=== PATIENT | female | born 1940 | race Caucasian/White ===

== ENCOUNTER 2017-06-03 16:05 | Inpatient (IN) ==
[2017-06-03 17:01] LABS: Basophils % 0.1 %; Eosinophils # 0.1 K/mcL (0.0-0.6); Eosinophils % 0.2 %; Hematocrit 34.8 % (35.3-44.9); Hemoglobin 11.5 g/dL (11.5-15.4); Immature Granulocytes % 1.3 % (0-4); Lymphocytes # 0.6 K/mcL (0.6-4.6); Lymphocytes % 2.2 %; Mean Corpuscular Hemoglobin 27.6 pg (28.0-33.3); Mean Corpuscular Volume 83.7 fL (83.0-100.0); Monocytes # 1.6 K/mcL (0.0-1.3); Monocytes % 6.5 %; Platelet Count 254 K/mcL (140-400); Red Blood Count 4.16 M/mcL (3.82-4.97); Red Cell Distribution Width 13.2 % (11.5-14.5); Segmented Neutrophils % 89.7 %
[2017-06-03 17:04] LABS: Neutrophils # 22.3 K/mcL (1.6-8.9)
[2017-06-03 17:14] LABS: Calcium 8.8 mg/dL (8.6-10.8); Potassium 4.8 mEq/L (3.5-4.5)
[2017-06-03] MEDS ORDERED: Cefepime HCl 2,000 MG in D5% in Water (Mini-Bag+) 100 ML IVPB STA (17:23)
[2017-06-03] MEDS ORDERED: Azithromycin 500 MG in D5% in Water 250 ML IVPB ONE (17:23)
[2017-06-03] MEDS ORDERED: Vancomycin 1,000 MG in D5% in Water 250 ML IVPB ONE (17:25)
[2017-06-03 17:30] LABS: Anisocytosis 1+ (Not Present); Platelet Estimate Normal (Normal)
--- NOTE | 2017-06-03 18:31 | Emergency Department Note ---
Disposition Clinical Impression: Pleural effusion, Hypoxia Pneumonia Qualifiers: Pneumonia type: due to unspecified organism Laterality: unspecified laterality Lung location: unspecified part of lung Qualified Code(s): J18.9 - Pneumonia, unspecified organism Sepsis Qualifiers: Sepsis type: sepsis due to unspecified organism Qualified Code(s): A41.9 - Sepsis, unspecified organism Disposition: Admitted As Inpatient Condition: Good Time of Disposition: 18:33 General Adult HPI - General Chief complaint: ED Fever Stated complaint: LANNY,Fever Time Seen by Provider: 06/03/17 16:23 Source: patient, family Mode of arrival: ambulatory Limitations: no limitations Nursing Notes Reviewed: Yes Vital Signs Reviewed: Yes - History of Present Illness HPI Narrative: 76-year-old female presents with concerns of difficulty in breathing. Patient states she was seen by her oncologist, Dr. Nation prior to arrival emergency department. Patient was satting 84% on room air prior to arrival in the emergency department. She does not use oxygen at home. Patient states she had a history of similar hypoxia with her right-sided pleural effusion which improved after drainage. Patient received her first dose of chemotherapy within the past week and has had multiple episodes of nonbloody, nonbilious emesis. Patient denies chest pain. She denies abdominal pain or diarrhea. Patient denies rash. No history of neutropenia. Patient states she has felt lightheaded with exertion. She has not syncopized. No other recent trauma. Pain Scale: 0 - Related Data Home Medications Medication Instructions Recorded Confirmed Aspirin [Lo-Dose Aspirin EC] 81 mg PO DAILY 08/05/16 06/03/17 Calcium Carbonate/Vitamin D3 1 tab PO BID 08/05/16 06/03/17 [Calcium 600 + Vit D Tablet] Fish Oil/Dha/Epa [Fish Oil 1,200 1 cap PO DAILY 08/05/16 06/03/17 mg Fish Oil] Multivitamin [Multivitamins] 1 cap PO DAILY 08/05/16 06/03/17 Ramipril [Altace] 10 mg PO BID 08/05/16 06/03/17 Risedronate Sodium [Actonel] 35 mg PO MO 08/05/16 06/03/17 amLODIPine [Norvasc] 5 mg PO DAILY 08/05/16 06/03/17 Metoprolol [Lopressor] 12.5 mg PO DAILY 08/17/16 06/03/17 Ondansetron [Zofran] 4 mg PO Q8HR PRN 06/03/17 06/03/17 Previous Rx's Medication Instructions Recorded Anastrozole [Arimidex] 1 mg PO DAILY #90 tablet 03/18/17 Dexamethasone [Decadron] 4 mg PO BID #40 tab 05/17/17 Folic Acid 1 mg PO DAILY #30 tablet 05/17/17 Magic Mouthwash [Magic Mouthwash 10 ml PO QID PRN #240 ml 05/17/17 BLM] Prochlorperazine Maleate 10 mg PO Q8HR PRN #90 tablet 05/17/17 [Compazine] Allergies Allergy/AdvReac Type Severity Reaction Status Date / Time No Known Allergies Allergy Verified 05/10/17 09:07 All systems ED: reviewed and negative except as stated. Past Medical History - Past Medical History Attestation: Yes The following information was validated with the patient. Source: patient Medical history: Reports: cancer, hyperlipidemia, hypertension Surgical history: Reports: breast surgery, hysterectomy Psychiatric history: Reports: no psych history - Social History Smoking Status: Never smoker Smokeless Tobacco Status: No Alcohol use: Reports: occasionally Drug use: Reports: none Physical Exam General: Alert and in no acute distress Skin: Warm, dry, intact Head: Normocephalic and atraumatic Neck: Supple, trachea midline and no tenderness Cardiovascular: Tachycardic, no murmur, normal perfusion Respiratory: Diminished breath sounds in the right lower lobe otherwise clear to auscultation. Musculoskeletal: Normal strength, no tenderness, swelling or deformity GI: Soft, nontender, nondistended. Bowel sounds present Neuro: A&O to person, place, time and situation. No focal deficits noted on exam Psychiatric: cooperative and appropriate mood and affect. - General Limitations: no limitations General appearance: alert, in no apparent distress Course Vital Signs Temperature 98.1 F 06/03/17 16:14 Pulse Rate 132 06/03/17 16:14 Respiratory Rate 20 06/03/17 16:14 Blood Pressure 121/80 06/03/17 16:14 O2 Sat by Pulse Oximetry 92 06/03/17 16:14 Temperature 98.2 F 06/03/17 21:11 Pulse Rate 112 06/03/17 21:11 Respiratory Rate 18 07/07/17 21:11 Blood Pressure 114/63 07/07/17 21:11 O2 Sat by Pulse Oximetry 93 06/03/17 21:11 Oxygen Delivery Oxygen Delivery Nasal Cannula Medical Decision Making - Medical Records Medical records reviewed: Yes I reviewed the patient's medical records. - Lab Data Lab results reviewed: Yes I reviewed the patient's lab results. Result diagrams: 06/03/17 16:50 06/03/17 16:50 Lab Results 06/03/17 06/03/17 06/03/17 Range/Units 16:50 16:50 16:50 WBC 24.8 H (4.3-11.1) K/mcL RBC 4.16 (3.82-4.97) M/mcL Hgb 11.5 (11.5-15.4) g/dL Hct 34.8 L (35.3-44.9) % MCV 83.7 (83.0-100.0) fL MCH 27.6 L (28.0-33.3) pg MCHC 33.0 (31.6-35.5) g/dL RDW 13.2 (11.5-14.5) % Plt Count 254 (140-400) K/mcL MPV 9.0 L (9.4-12.4) fL Immature Gran % 1.3 (0-4) % Seg Neutrophils % 89.7 % Lymphocytes % 2.2 % Monocytes % 6.5 % Eosinophils % 0.2 % Basophils % 0.1 % Neutrophils # 22.3 H (1.6-8.9) K/mcL Lymphocytes # 0.6 (0.6-4.6) K/mcL Monocytes # 1.6 H (0.0-1.3) K/mcL Eosinophils # 0.1 (0.0-0.6) K/mcL Basophils # 0.0 (0.0-0.2) K/mcL Platelet Estimate Normal (Normal) Anisocytosis 1+ A (Not Present) Sodium 127 L (136-145) mEq/L Potassium 4.8 H (3.5-4.5) mEq/L Chloride 90 L (98-109) mEq/L Carbon Dioxide 26 (19-29) mEq/L BUN 20 (7-20) mg/dL Creatinine 1.30 H (0.57-1.11) mg/dL Est GFR ( Amer) 48 L (> 60) Est GFR (Non-Af Amer) 40 L (> 60) BUN/Creatinine Ratio 15 (6-26) Glucose 151 H (70-99) mg/dL Calculated Osmolality 270 L (280-300) Lactic Acid 1.3 (0.5-2.2) mmol/L Calcium 8.8 (8.6-10.8) mg/dL Troponin I (0-0.03) ng/mL B-Natriuretic Peptide (0-100) pg/mL 06/03/17 06/03/17 06/03/17 Range/Units 16:50 16:50 18:10 WBC (4.3-11.1) K/mcL RBC (3.82-4.97) M/mcL Hgb (11.5-15.4) g/dL Hct (35.3-44.9) % MCV (83.0-100.0) fL MCH (28.0-33.3) pg MCHC (31.6-35.5) g/dL RDW (11.5-14.5) % Plt Count (140-400) K/mcL MPV (9.4-12.4) fL Immature Gran % (0-4) % Seg Neutrophils % % Lymphocytes % % Monocytes % % Eosinophils % % Basophils % % Neutrophils # (1.6-8.9) K/mcL Lymphocytes # (0.6-4.6) K/mcL Monocytes # (0.0-1.3) K/mcL Eosinophils # (0.0-0.6) K/mcL Basophils # (0.0-0.2) K/mcL Platelet Estimate (Normal) Anisocytosis (Not Present) Sodium (136-145) mEq/L Potassium (3.5-4.5) mEq/L Chloride (98-109) mEq/L Carbon Dioxide (19-29) mEq/L BUN (7-20) mg/dL Creatinine (0.57-1.11) mg/dL Est GFR ( Amer) (> 60) Est GFR (Non-Af Amer) (> 60) BUN/Creatinine Ratio (6-26) Glucose (70-99) mg/dL Calculated Osmolality (280-300) Lactic Acid 1.0 (0.5-2.2) mmol/L Calcium (8.6-10.8) mg/dL Troponin I 0.01 (0-0.03) ng/mL B-Natriuretic Peptide 39 (0-100) pg/mL - Radiology Data Radiology results reviewed: Yes I reviewed the patient's radiology results. - EKG Data EKG #1 EKG attestation: Yes I reviewed and interpreted this EKG. EKG results narrative: ECG - interpreted by ED physician. Rate 123, normal sinus rhythm, no STEMI, [place] , QT intervals, and QRS within normal limits Critical Care Time Critical Care Time: Yes Total Critical Care Time: 32 Attestation: The high probability of a clinically significant, sudden or life threatening deterioration of the respiratory and cardiovascular system(s) required my full and direct attention, intervention and personal management. The aggregate critical care time was 32 minutes. This time is in addition to time spent performing reported procedures but includes the following: x Data Review and interpretation x Patient assessment and monitoring of vital signs x Documentation x Medication orders and management
[2017-06-03] MEDS ORDERED: Acetaminophen 325 MG TABLET PO PRN (19:58)
[2017-06-03] MEDS ORDERED: Naloxone 0.4 MG/ML INJ IVP PRN (19:58)
[2017-06-03] MEDS ORDERED: Ondansetron 4 MG/2 ML VIAL IVP PRN (20:01)
--- NOTE | 2017-06-03 20:16 | Internal Med History&Physical ---
Date of Encounter: 06/03/17 Time of Encounter: 20:15 Assessment and Plan (1) Acute respiratory failure with hypoxia Current visit: Yes Status: Acute etiology here could be multifactorial; the pneumonia, spreading lung cancer with associated pleural effusion and lung collapse, chest CTA was unremarkable for acute pulmonary embolism as an etiology, will do supplemental oxygen, treat underlying pneumonia and consider thoracentesis (2) Sepsis Current visit: Yes Status: Acute patient comes in with signs a symptoms of respiratory etiology and found to have findings that are concerning for consolidation on CTA, whilst additionally meeting SIRS criteria(leucocytosis-part driven by neulesta and tachycardia), we will get urine strep and legionella antigens, sputum Gram stain and c/s, will begin empiric Abx whilst following microbiology results Qualifiers: Sepsis type: sepsis due to unspecified organism Qualified Code(s): A41.9 - Sepsis, unspecified organism (3) Pneumonia Current visit: Yes Status: Acute left upper and and left lower lobes involvement, further assessment and plan per sepsis section Qualifiers: Pneumonia type: due to unspecified organism Laterality: left Lung location: upper lobe of lung Qualified Code(s): J18.1 - Lobar pneumonia, unspecified organism (4) GABRIELA (acute kidney injury) Current visit: Yes Status: Acute etiology is most likely pre-renal considering dehydration, we will hydrate, avoid nephrotoxins, renally dose all medications and follow BMP (5) Hyperkalemia Current visit: Yes Status: Acute this is related to GABRIELA, no urgent intervention required, will hydrate and follow BMP (6) Dehydration Current visit: Yes Status: Acute this is related to poor intake, will hydrate and reassess (7) Pleural effusion Current visit: Yes Status: Acute this could be contributing to her hypoxia, will need to consider thoracentesis (8) Metastatic primary lung cancer Current visit: Yes Status: Chronic associated with bone, liver, brain spread and persistent right pleural effusion and associated collapse of the middle and lower lobes, oncology is following Qualifiers: Laterality: right Qualified Code(s): C34.91 - Malignant neoplasm of unspecified part of right bronchus or lung (9) HTN (hypertension) Current visit: Yes Status: Chronic normotensive currently, we will continue home medications whilst monitoring BP Qualifiers: Hypertension type: essential hypertension Qualified Code(s): I10 - Essential (primary) hypertension Internal Medicine - H&P: HPI Chief complaint: fever Admitted From: Emergency Dept Plans for Post Hospital Care: Home History of present illness: Ms. 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 She was seen by her oncologist today and noted to have difficulty breathing and a temperature reading of 101.9 so she was sent to the ER for evaluation. In the ER her pulse ox reading was 84% on room air. She reports having been unwell for weeks with malaise, cough productive of foamy clear material, nausea and sometimes vomiting episodes with lightheadedness. These symptoms have also been associated with dyspnea and dyspnea on exertion, fatigue and poor exercise tolerance. She reports that after she received her first chemo and neulesta she began to have migraine headaches and worsened prior symptoms. No reported diarrhea. She reports prior hypoxia in the setting of worsening pleural effusion which improved after thoracentesis. Past Med Surg Social Fam HX - Past Medical History Source: patient, old records reviewed Medical history: cancer (left breast invasive ductal cancer, ), hyperlipidemia, hypertension, other (osteoporosis, hemorrhoids) Psychiatric history: no psych history - Past Surgical History Surgical History: breast surgery (left breast lumpectomy), hysterectomy - Social History Smoking Status: Never smoker Smokeless Tobacco Status: No Alcohol use: occasionally Drug use: none - Additional Family History Additional family history: Father; prostate cancer, heart disease and Mother; heart disease, Brother: lymphoma Internal Medicine - H&P: Meds Aspirin [Lo-Dose Aspirin EC] 81 mg PO DAILY 08/05/16 [History] Calcium Carbonate/Vitamin D3 [Calcium 600 + Vit D Tablet] 1 tab PO BID 08/05/16 [History] Fish Oil/Dha/Epa [Fish Oil 1,200 mg Fish Oil] 1 cap PO DAILY 08/05/16 [History] Multivitamin [Multivitamins] 1 cap PO DAILY 08/05/16 [History] Ramipril [Altace] 10 mg PO BID 08/05/16 [History] Risedronate Sodium [Actonel] 35 mg PO MO 08/05/16 [History] amLODIPine [Norvasc] 5 mg PO DAILY 08/05/16 [History] Metoprolol [Lopressor] 12.5 mg PO DAILY 08/17/16 [History] Anastrozole [Arimidex] 1 mg PO DAILY #90 tablet 03/18/17 [Rx] Dexamethasone [Decadron] 4 mg PO BID #40 tab 05/17/17 [Rx] Folic Acid 1 mg PO DAILY #30 tablet 05/17/17 [Rx] Magic Mouthwash [Magic Mouthwash BLM] 10 ml PO QID PRN #240 ml 05/17/17 [Rx] Prochlorperazine Maleate [Compazine] 10 mg PO Q8HR PRN #90 tablet 05/17/17 [Rx] Ondansetron [Zofran] 4 mg PO Q8HR PRN 06/03/17 [History] Allergies No Known Allergies Allergy (Verified 05/10/17 09:07) All Systems PM: A 10-system review of systems was performed and is negative for pertinent findings except as documented above in the HPI. - Constitutional Vitals: Temp Pulse Resp BP Pulse Ox 98.1 F 115 18 131/64 94 06/03/17 16:14 06/03/17 19:02 06/03/17 20:12 06/03/17 20:12 06/03/17 19:02 GENERAL: Frail looking elderly female, looks acutely ill and is febrile to touch, Alert, HEENT: NC/AT, EOMI, PERRLA, anicteric sclera, normal conjunctiva, supple, clear nares, dry mucous membranes, RESP: Lungs are clear to auscultation on the left but diminished on the right, No crackles or wheeze CARDIO: Normal hearts sounds but tachycardic, regular rhythm with no murmurs, no JVD, no ankle edema GI: Soft, full, no tenderness, no organomegaly felt, normal bowel sounds heard MUSCULOSKELETAL: grossly normal movements bilaterally, no deformities noted, no calf tenderness NEUROLOGIC: CN 2-12 intact grossly. No motor/sensory deficit appreciated, PSYCHIATRY: AAO x 3. Mood is fair, SKIN: no skin rash or ulcers noted Internal Med - H&P Results - Labs CBC & Chem 7: 06/04/17 02:55 06/04/17 02:55 - Diagnostic Studies Chest x-ray Status: image reviewed by me CT scan - chest Status: image reviewed by me
[2017-06-03] MEDS: RAMIPRIL 10 MG PO SCH (21:54)
[2017-06-03] MEDS: CALCIUM CARBONATE PO SCH (21:55)
[2017-06-03] MEDS: VITAMIN D3 PO SCH (21:55)
[2017-06-03] MEDS: Ringers Solution, Lactated 1,000 ML IVC SCH (22:14)
[2017-06-04 03:01] LABS: Basophils % 0.1 %; Eosinophils # 0.3 K/mcL (0.0-0.6); Eosinophils % 1.2 %; Hematocrit 31.2 % (35.3-44.9); Hemoglobin 10.3 g/dL (11.5-15.4); Immature Granulocytes % 1.1 % (0-4); Lymphocytes % 4.7 %; Mean Corpuscular Hemoglobin 27.5 pg (28.0-33.3); Mean Corpuscular Volume 83.4 fL (83.0-100.0); Mean Platelet Volume 9.2 fL (9.4-12.4); Monocytes # 1.8 K/mcL (0.0-1.3); Monocytes % 8.7 %; Neutrophils # 17.9 K/mcL (1.6-8.9); Platelet Count 234 K/mcL (140-400); Red Blood Count 3.74 M/mcL (3.82-4.97); Red Cell Distribution Width 13.2 % (11.5-14.5); Segmented Neutrophils % 84.2 %
[2017-06-04 03:14] LABS: BUN/Creatinine Ratio 17 (6-26); Blood Urea Nitrogen 17 mg/dL (7-20); Calcium 8.6 mg/dL (8.6-10.8); Carbon Dioxide 27 mEq/L (19-29); Chloride 90 mEq/L (98-109); Glucose 127 mg/dL (70-99); Magnesium 1.2 mg/dL (1.6-2.6); Osmolality,Calculated 265 (280-300); Phosphorous 2.6 mg/dL (2.3-4.7); Potassium 4.5 mEq/L (3.5-4.5); Sodium 126 mEq/L (136-145); eGFR For African Americans > 60 (> 60); eGFR For Non-African Americans 55 (> 60)
[2017-06-04] MEDS: Ringers Solution, Lactated 1,000 ML IVC SCH ×3 (06:05→23:42)
[2017-06-04] MEDS: Multivit/Ca/Min/Fe/FA 1 TAB TABLET PO SCH (08:12)
[2017-06-04] MEDS: Aspirin Enteric Coated 81 MG Tablet PO SCH (08:12)
[2017-06-04] MEDS: Anastrozole 1 MG TABLET PO SCH (08:13)
[2017-06-04] MEDS: Folic Acid 1 MG TABLET PO SCH (08:13)
[2017-06-04] MEDS: amLODIPine 5 MG TABLET PO SCH (08:13)
[2017-06-04] MEDS: Levofloxacin 750 MG/150 ML 750 MG/150 ML BAG IVPB SCH (09:12)
[2017-06-04] MEDS: CALCIUM CARBONATE PO SCH ×2 (09:14→20:09)
[2017-06-04] MEDS: VITAMIN D3 PO SCH ×2 (09:14→20:09)
[2017-06-04] MEDS: RAMIPRIL 10 MG PO SCH ×2 (09:14→20:08)
[2017-06-04] MEDS ORDERED: Furosemide 20 MG/2 ML VIAL IVP ONE (10:53)
--- NOTE | 2017-06-04 10:54 | Internal Med Progress Note ---
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 Had recent chemotherapy on June 03 Continue Levaquin day 2, add cefepime Pulmonary consult to consider thoracenteses Lasix IV Oncology on board (2) Pleural effusion Current Visit: Yes Status: Acute Assessment and plan: Right pleural effusion (3) Sepsis Current Visit: Yes Status: Acute Qualifiers: Sepsis type: sepsis due to unspecified organism Qualified Code(s): A41.9 - Sepsis, unspecified organism (4) Pneumonia Current Visit: Yes Status: Acute Qualifiers: Pneumonia type: due to unspecified organism Laterality: left Lung location: upper lobe of lung Qualified Code(s): J18.1 - Lobar pneumonia, unspecified organism (5) Metastatic primary lung cancer Current Visit: Yes Status: Chronic Qualifiers: Laterality: right Qualified Code(s): C34.91 - Malignant neoplasm of unspecified part of right bronchus or lung (6) HTN (hypertension) Current Visit: Yes Status: Chronic Assessment and plan: Stable Qualifiers: Hypertension type: essential hypertension Qualified Code(s): I10 - Essential (primary) hypertension (7) GABRIELA (acute kidney injury) Current Visit: Yes Status: Acute Assessment and plan: Secondary to infection (8) Hyperkalemia Current Visit: Yes Status: Acute Assessment and plan: Resolved (9) History of left breast cancer Current Visit: Yes Status: Acute Assessment and plan: History of breast cancer ER 90%, [place] 10% HER-2/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 Absent: lymphadenopathy - Respiratory Respiratory exam: Present: decreased breath sounds (Blunted breath sounds in the right base up to the mid to right lung, diffuse crackles bilaterally), CTAB , tachypnea. Absent: accessory muscle use, rales, rhonchi, wheezes - Cardiovascular Cardiovascular exam: Present: RRR, +S1, +S2, tachycardia. Absent: diastolic murmur, gallop, rubs, systolic murmur - GI/Abdominal GI/Abdominal exam: Present: normal bowel sounds, soft, no peritoneal signs. Absent: distended, tenderness - Extremities Exam Extremities exam: Present: warm, radial pulses palpable and symetrical. Absent : calf tenderness, cyanotic, pedal edema - Neurological Exam Neurological exam: Present: CN II-XII intact, oriented X3, no focal deficits. Absent: pronater drift, facial droop, speech deficit - Skin Skin exam: Present: dry, intact Internal Medicine: Result - Labs CBC & Chem 7: 06/04/17 02:55 06/04/17 02:55 Labs: Short CBC 06/04/17 Range/Units 02:55 WBC 21.2 H (4.3-11.1) K/mcL Hgb 10.3 L (11.5-15.4) g/dL Hct 31.2 L (35.3-44.9) % Plt Count 234 (140-400) K/mcL Neutrophils # 17.9 H (1.6-8.9) K/mcL BMP 06/04/17 02:55 Sodium 126 L Potassium 4.5 Chloride 90 L Carbon Dioxide 27 BUN 17 Creatinine 0.99 Glucose 127 H Calcium 8.6 Consult Discharge Plan - Plan Referrals: Julio Cesar Floyd MD [Non-Partnered Physician] -
--- NOTE | 2017-06-04 11:00 | Oncology Inp Progress Note ---
Date of Encounter: 06/04/17 Time of Encounter: 09:00 (1) Metastatic primary lung cancer Current Visit: Yes Status: Chronic Assessment and plan: s/p carboplatin Alimta C1, plan to add PDL1 with next cycle and s/p neulasta- admitted with SOB, hypoxemia on RA and tachycardia. CTA no PE. Robinson lung nodules , left sided consolidation/pneumonia. Rt fluid increased since prior drainage and compared to CXR 05/14. She is comfortable at rest requiring oxygen tachycardia. On Levaquine for possible pneumoina-PD not ruled out Plan d/w patient Will consider drainage of rt effusion. D/W hospitalist and Pulm. Qualifiers: Laterality: right Qualified Code(s): C34.91 - Malignant neoplasm of unspecified part of right bronchus or lung Oncology: Subj Interval history: SOB not improved. Denies any sores, diarrhea or CP. Feels exhausted - Constitutional Vitals: Vital Signs Temp Pulse Resp BP Pulse Ox 06/04/17 10:38 99.1 F 112 14 117/75 92 06/04/17 09:28 91 06/04/17 07:40 98.8 F 112 14 129/76 92 06/04/17 04:33 99.2 F 83 14 125/73 93 06/03/17 23:59 98.6 F 53 14 118/67 96 06/03/17 21:11 98.2 F 112 18 114/63 93 06/03/17 20:12 18 131/64 Intake and Output 06/03/17 06/04/17 06/04/17 23:59 07:59 15:59 Intake Total 250 / 600 1120 / 1120 360 / 360 Output Total 100 / 100 200 / 200 Balance 150 / 500 920 / 920 360 / 360 Intake: IV Fluids 250 / 250 1000 / 1000 Lactated Ringers 1,000 ML 1000 / 1000 @ 125 mls/hr IVC .Q8H HAKAN Rx#:[id number] Zithromax 500 mg In 250 / 250 Dextrose 5% 250 ML @ 252 mls/hr IVPB ONCE ONE Rx#: [id number] Oral 0 / 0 120 / 120 360 / 360 Output: Urine 100 / 100 200 / 200 Other: Meal Breakfast Percent of Meal Consumed 100% Weight 81.647 kg 81.193 kg Patient Weight 06/04/17 23:59 Weight 81.193 kg General appearance: no acute distress Exam: on Oxygen NC - Head Head exam: Present: atraumatic - Eye Eye exam: Present: sclera anicteric - ENT ENT exam: Present: mucous membranes dry - Neck Neck exam: Present: full ROM - Respiratory Respiratory exam: Present: CTAB - Cardiovascular Cardiovascular exam: Present: +S1, +S2 - GI/Abdominal GI/Abdominal exam: Present: normal bowel sounds, soft - Extremities Exam Extremities exam: Present: normal inspection - Neurological Exam Neurological exam: Present: alert, CN II-XII intact, oriented X3 - Psychiatric Psychiatric exam: Present: anxious, normal affect Oncology: Obj Data - Labs CBC & Chem 7: 06/04/17 02:55 06/04/17 02:55 Labs: Laboratory Results - last 24 hr 06/04/17 06/04/17 02:55 02:55 WBC 21.2 H RBC 3.74 L Hgb 10.3 L Hct 31.2 L MCV 83.4 MCH 27.5 L MCHC 33.0 RDW 13.2 Plt Count 234 MPV 9.2 L Immature Gran % 1.1 Seg Neutrophils % 84.2 Lymphocytes % 4.7 Monocytes % 8.7 Eosinophils % 1.2 Basophils % 0.1 Neutrophils # 17.9 H Lymphocytes # 1.0 Monocytes # 1.8 H Eosinophils # 0.3 Basophils # 0.0 Sodium 126 L Potassium 4.5 Chloride 90 L Carbon Dioxide 27 BUN 17 Creatinine 0.99 Est GFR ( Amer) > 60 Est GFR (Non-Af Amer) 55 L BUN/Creatinine Ratio 17 Glucose 127 H Calculated Osmolality 265 L Calcium 8.6 Phosphorus 2.6 Magnesium 1.2 L Consult Discharge Plan - Plan Referrals: Julio Cesar Floyd MD [Non-Partnered Physician] -
--- NOTE | 2017-06-04 11:46 | Pulmonology Consult Note ---
Date of Encounter: 06/04/17 Time of Encounter: 11:45 Assessment and Plan (1) Acute respiratory failure with hypoxia Current Visit: Yes Status: Acute Impression: 76-year-old woman with recently diagnosed metastatic lung cancer currently undergoing chemotherapy with Dr. Sarabia presented to clinic hypoxic respiratory failure which is likely secondary to acute infectious pneumonia with concern for sepsis. CT scan also concerning for lymphangitic spread of her tumor and worsening right-sided malignant pleural effusion. Most important aspect of her treatment right now is antimicrobial therapy for pneumonia. I discussed several options for the treatment of a malignant pleural effusion which has reaccumulated it is sizable effusion and associated with some amount of compression atelectasis. It is unclear how much of right-sided volume loss is related to this compression atelectasis or some growths in her right-sided tumor. I favor the former as the better explanation. Clearly she would not benefit from drainage of this pleural effusion but the timing and modality is debatable. I offered her possibility of thoracentesis today which could alleviate some of her dyspnea however this would not drain the fluid completely and given the size of the effusion and the rapidity with which it has reaccumulated I favor placement of a Pleurx catheter. This could be done on Tuesday. Since the patient is not in much distress currently she has opted to wait for this possibility the early part of next week for which I will discuss with my partner. I will stop back by tomorrow and check in on her and if she is much more dyspneic we will proceed with bedside ultrasound guided thoracentesis RECS: * Wean oxygen to keep saturation around 90-94% out of bed to chair incentive spirometry as tolerated * Send sputum and blood culture not already obtained- her lactate is normal she is been volume resuscitated * Continue antimicrobial therapy de-escalate next 24-48 hours respiratory fluoroquinolone if culture is negative * We will reevaluate tomorrow for more acute need for thoracentesis. * DVT prophylaxis with low molecular weight heparin unless contraindicated * Primary management of chemotherapy per oncology recommendations (2) Pneumonia Current Visit: Yes Status: Acute Qualifiers: Pneumonia type: due to unspecified organism Laterality: left Lung location: upper lobe of lung Qualified Code(s): J18.1 - Lobar pneumonia, unspecified organism (3) Sepsis Current Visit: Yes Status: Acute Qualifiers: Sepsis type: sepsis due to unspecified organism Qualified Code(s): A41.9 - Sepsis, unspecified organism (4) Metastatic primary lung cancer Current Visit: Yes Status: Chronic Qualifiers: Laterality: right Qualified Code(s): C34.91 - Malignant neoplasm of unspecified part of right bronchus or lung (5) Pleural effusion Current Visit: Yes Status: Acute History of Present Illness Consult date: 06/04/17 Requesting physician: Charly Juares Reason for consult: pneumonia Chief complaint: Shortness of breath History of present illness: Pleasant 76-year-old woman with a history of breast cancer and recently diagnosed non-small cell lung cancer confirmed by pleural cytology. She was admitted to her oncologist office yesterday was noted to be hypoxic on room air which is new for her. She is also had productive cough and was generally feeling unwell and so was transferred to the emergency department. There she was had CTA which was negative for filling the fact but concerning for possible pneumonia and spread of her right-sided tumor. There is also a moderate size pleural effusion. Pulmonary's been consulted to evaluate the patient for new hypoxemia and possible thoracentesis. Since anti-microbial treatment has been initiated patient says she feels relatively better than before she still has an oxygen requirement 2-3 L on room air to keep saturation around 94%. She denies constant dyspnea and is generally comfortable when sitting in up in bed but continues to have a productive cough. She is joined by her niece who is an INVENTORY ASSISTANT. She has started chemotherapy with [place]-based therapy along with Alimta Past Med Surg Social Fam HX - Past Medical History Medical history: cancer (left breast invasive ductal cancer, ), hyperlipidemia, hypertension, other (osteoporosis, hemorrhoids) Psychiatric history: no psych history - Past Surgical History Surgical History: breast surgery (left breast lumpectomy), hysterectomy - Social History Smoking Status: Never smoker Smokeless Tobacco Status: No Alcohol use: occasionally Drug use: none Medications and Allergies Aspirin [Lo-Dose Aspirin EC] 81 mg PO DAILY 08/05/16 [History] Calcium Carbonate/Vitamin D3 [Calcium 600 + Vit D Tablet] 1 tab PO BID 08/05/16 [History] Fish Oil/Dha/Epa [Fish Oil 1,200 mg Fish Oil] 1 cap PO DAILY 08/05/16 [History] Multivitamin [Multivitamins] 1 cap PO DAILY 08/05/16 [History] Ramipril [Altace] 10 mg PO BID 08/05/16 [History] Risedronate Sodium [Actonel] 35 mg PO MO 08/05/16 [History] amLODIPine [Norvasc] 5 mg PO DAILY 08/05/16 [History] Metoprolol [Lopressor] 12.5 mg PO DAILY 08/17/16 [History] Anastrozole [Arimidex] 1 mg PO DAILY #90 tablet 03/18/17 [Rx] Dexamethasone [Decadron] 4 mg PO BID #40 tab 05/17/17 [Rx] Folic Acid 1 mg PO DAILY #30 tablet 05/17/17 [Rx] Magic Mouthwash [Magic Mouthwash BLM] 10 ml PO QID PRN #240 ml 05/17/17 [Rx] Prochlorperazine Maleate [Compazine] 10 mg PO Q8HR PRN #90 tablet 05/17/17 [Rx] Ondansetron [Zofran] 4 mg PO Q8HR PRN 06/03/17 [History] Allergies No Known Allergies Allergy (Verified 05/10/17 09:07) All Systems: A 10-system review of systems was performed and is negative for pertinent findings except as documented above in the HPI. Physical Examination Vital Signs: Vital Signs, Last 4 Hours Temp Pulse Resp BP Pulse Ox 06/04/17 10:38 99.1 F 112 14 117/75 92 06/04/17 09:28 91 General appearance: no acute distress Effort: normal, other (Speaking in full sentences) Auscultation: left: rales, right: diminished breath sounds Gastrointestinal: normoactive bowel sounds Integumentary: normal Extremities: no edema Musculoskeletal: no deformities normal mental status, non-focal exam mood appropriate Results - Laboratory Findings CBC and BMP: 06/04/17 02:55 06/04/17 02:55 Abnormal lab findings: Abnormal lab results WBC 21.2 K/mcL (4.3-11.1) H 06/04/17 02:55 RBC 3.74 M/mcL (3.82-4.97) L 06/04/17 02:55 Hgb 10.3 g/dL (11.5-15.4) L 06/04/17 02:55 Hct 31.2 % (35.3-44.9) L 06/04/17 02:55 MCH 27.5 pg (28.0-33.3) L 06/04/17 02:55 MPV 9.2 fL (9.4-12.4) L 06/04/17 02:55 Neutrophils # 17.9 K/mcL (1.6-8.9) H 06/04/17 02:55 Monocytes # 1.8 K/mcL (0.0-1.3) H 06/04/17 02:55 Anisocytosis 1+ (Not Present) A 06/03/17 16:50 Sodium 126 mEq/L (136-145) L 06/04/17 02:55 Chloride 90 mEq/L (98-109) L 06/04/17 02:55 Est GFR (Non-Af Amer) 55 (> 60) L 06/04/17 02:55 Glucose 127 mg/dL (70-99) H 06/04/17 02:55 Calculated Osmolality 265 (280-300) L 06/04/17 02:55 Magnesium 1.2 mg/dL (1.6-2.6) L 06/04/17 02:55 - Microbiology Findings Microbiology Findings: Microbiology, Last 48 Hours 06/03/17 23:59 Sputum Culture - Preliminary Sputum 06/04/17 01:00 Legionella Antigen - Final Urine,Clean Catch Streptococcus pneumoniae Antigen (M - Final - Diagnostic Findings Chest x-ray: report reviewed, image reviewed CT scan - chest: report reviewed, image reviewed - Clinical Findings Intake & Output: Intake & Output 06/03/17 06/04/17 06/04/17 23:59 07:59 15:59 Intake Total 250 / 600 1120 / 1120 360 / 360 Output Total 100 / 100 200 / 200 Balance 150 / 500 920 / 920 360 / 360 Weight 81.647 kg 81.193 kg Consult Discharge Plan - Plan Referrals: Julio Cesar Floyd MD [Non-Partnered Physician] -
[2017-06-04] MEDS: Cefepime HCl 1,000 MG in D5% in Water (Mini-Bag+) 100 ML IVPB SCH ×3 (11:53→23:42)
[2017-06-04] MEDS: *HR* Heparin 5,000 UNIT/ML VIAL SQ SCH (21:13)
[2017-06-04] MEDS: Magic Mouthwash 10 ML UD Cup PO PRN (22:15)
[2017-06-05 03:31] LABS: Hematocrit 30.4 % (35.3-44.9); Hemoglobin 9.9 g/dL (11.5-15.4); Immature Platelets 2.6 % (1.1-6.1); Mean Corpuscular HGB Conc 32.6 g/dL (31.6-35.5); Mean Corpuscular Hemoglobin 27.7 pg (28.0-33.3); Mean Corpuscular Volume 84.9 fL (83.0-100.0); Mean Platelet Volume 8.9 fL (9.4-12.4); Red Blood Count 3.58 M/mcL (3.82-4.97); Red Cell Distribution Width 13.2 % (11.5-14.5)
[2017-06-05 03:42] LABS: BUN/Creatinine Ratio 16 (6-26); Blood Urea Nitrogen 13 mg/dL (7-20); Calcium 8.5 mg/dL (8.6-10.8); Carbon Dioxide 25 mEq/L (19-29); Chloride 93 mEq/L (98-109); Glucose 130 mg/dL (70-99); Osmolality,Calculated 268 (280-300); Potassium 3.9 mEq/L (3.5-4.5); Sodium 128 mEq/L (136-145); eGFR For African Americans > 60 (> 60); eGFR For Non-African Americans > 60 (> 60)
[2017-06-05] MEDS: *HR* Heparin 5,000 UNIT/ML VIAL SQ SCH ×3 (05:58→21:49)
--- NOTE | 2017-06-05 08:38 | Pulmonology Progress Note ---
Date of Encounter: 06/05/17 Time of Encounter: 08:38 Assessment and Plan (1) Acute respiratory failure with hypoxia Current Visit: Yes Status: Acute Impression: #1 acute hypoxic respiratory failure #2 metastatic non-small cell lung cancer #3 pneumonia #4 malignant pleural effusion Recommendations: Plan to be evaluated for Pleurx catheter placement in the next 24-48 hours Continue antimicrobials can likely de-escalate to respiratory fluoroquinolone to complete 70 course based upon culture sensitivities Continue out of bed to chair incentive spirometry and ambulation while monitored and wean FiO2 to keep saturation greater than 89% Continue DVT prophylaxis with low molecular weight heparin unless otherwise contraindicated (2) Pneumonia Current Visit: Yes Status: Acute Qualifiers: Pneumonia type: due to unspecified organism Laterality: left Lung location: upper lobe of lung Qualified Code(s): J18.1 - Lobar pneumonia, unspecified organism (3) Sepsis Current Visit: Yes Status: Acute Qualifiers: Sepsis type: sepsis due to unspecified organism Qualified Code(s): A41.9 - Sepsis, unspecified organism (4) Metastatic primary lung cancer Current Visit: Yes Status: Chronic Qualifiers: Laterality: right Qualified Code(s): C34.91 - Malignant neoplasm of unspecified part of right bronchus or lung (5) Pleural effusion Current Visit: Yes Status: Acute Subjective Principal diagnosis: Pneumonia Interval history: The little bit better today says breathing has improved to some degree she is able to start bringing up some phlegm. Sitting up in a chair quite comfortable Objective PUL Vital signs: Last Vital Signs Temp 98.1 F 06/05/17 07:27 Pulse 116 06/05/17 07:27 Resp 18 06/05/17 07:27 BP 132/74 06/05/17 07:27 Pulse Ox 94 06/05/17 07:27 General appearance: no acute distress Auscultation: right: clear, bilateral: rhonchi Cardiovascular: irregular rhythm Gastrointestinal: soft, non-tender Extremities: no edema normal mental status, non-focal exam Results - Laboratory Findings CBC and BMP: 06/05/17 03:20 06/05/17 03:20 Abnormal lab findings: Abnormal lab results WBC 21.4 K/mcL (4.3-11.1) H 06/05/17 03:20 RBC 3.58 M/mcL (3.82-4.97) L 06/05/17 03:20 Hgb 9.9 g/dL (11.5-15.4) L 06/05/17 03:20 Hct 30.4 % (35.3-44.9) L 06/05/17 03:20 MCH 27.7 pg (28.0-33.3) L 06/05/17 03:20 MPV 8.9 fL (9.4-12.4) L 06/05/17 03:20 Neutrophils # 17.9 K/mcL (1.6-8.9) H 06/04/17 02:55 Monocytes # 1.8 K/mcL (0.0-1.3) H 06/04/17 02:55 Anisocytosis 1+ (Not Present) A 06/03/17 16:50 Sodium 128 mEq/L (136-145) L 06/05/17 03:20 Chloride 93 mEq/L (98-109) L 06/05/17 03:20 Glucose 130 mg/dL (70-99) H 06/05/17 03:20 Calculated Osmolality 268 (280-300) L 06/05/17 03:20 Calcium 8.5 mg/dL (8.6-10.8) L 06/05/17 03:20 Magnesium 1.2 mg/dL (1.6-2.6) L 06/04/17 02:55 - Microbiology Findings Microbiology Findings: Microbiology, Last 48 Hours 06/03/17 23:59 Sputum Culture - Preliminary Sputum 06/04/17 01:00 Legionella Antigen - Final Urine,Clean Catch Streptococcus pneumoniae Antigen (M - Final - Clinical Findings Intake & Output: Intake & Output 06/04/17 06/05/17 06/05/17 23:59 07:59 15:59 Intake Total 1100 / 1100 Output Total 400 / 400 400 / 400 Balance 700 / 700 -400 / -400 Consult Discharge Plan - Plan Referrals: Julio Cesar Floyd MD [Non-Partnered Physician] -
[2017-06-05] MEDS: Ringers Solution, Lactated 1,000 ML IVC SCH ×2 (09:33→17:39)
[2017-06-05] MEDS: Cefepime HCl 1,000 MG in D5% in Water (Mini-Bag+) 100 ML IVPB SCH ×3 (09:34→23:56)
[2017-06-05] MEDS: amLODIPine 5 MG TABLET PO SCH (09:35)
[2017-06-05] MEDS: Multivit/Ca/Min/Fe/FA 1 TAB TABLET PO SCH (09:35)
[2017-06-05] MEDS: Aspirin Enteric Coated 81 MG Tablet PO SCH (09:35)
[2017-06-05] MEDS: Folic Acid 1 MG TABLET PO SCH (09:35)
[2017-06-05] MEDS: Anastrozole 1 MG TABLET PO SCH (09:35)
[2017-06-05] MEDS: VITAMIN D3 PO SCH ×2 (09:36→21:49)
[2017-06-05] MEDS: CALCIUM CARBONATE PO SCH ×2 (09:36→21:49)
[2017-06-05] MEDS: RAMIPRIL 10 MG PO SCH ×2 (09:36→21:49)
--- NOTE | 2017-06-05 10:13 | Internal Med Progress Note ---
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 Had recent chemotherapy on June 03 Continue Levaquin day 3, cefepime day 2 Pulmonary consulted to consider thoracenteses versus Pleurx catheter Lasix IV CT scan of the chest shows worsening right-sided large malignant pleural effusion, also findings concerning for lymphangitic spread Oncology on board (2) Pleural effusion Current Visit: Yes Status: Acute Assessment and plan: Right pleural effusion (3) Sepsis Current Visit: Yes Status: Acute Qualifiers: Sepsis type: sepsis due to unspecified organism Qualified Code(s): A41.9 - Sepsis, unspecified organism (4) Pneumonia Current Visit: Yes Status: Acute Qualifiers: Pneumonia type: due to unspecified organism Laterality: left Lung location: upper lobe of lung Qualified Code(s): J18.1 - Lobar pneumonia, unspecified organism (5) Metastatic primary lung cancer Current Visit: Yes Status: Chronic Qualifiers: Laterality: right Qualified Code(s): C34.91 - Malignant neoplasm of unspecified part of right bronchus or lung (6) HTN (hypertension) Current Visit: Yes Status: Chronic Assessment and plan: Stable Qualifiers: Hypertension type: essential hypertension Qualified Code(s): I10 - Essential (primary) hypertension (7) GABRIELA (acute kidney injury) Current Visit: Yes Status: Acute Assessment and plan: Secondary to infection (8) Hyperkalemia Current Visit: Yes Status: Acute Assessment and plan: Resolved (9) History of left breast cancer Current Visit: Yes Status: Acute Assessment and plan: History of breast cancer ER 90%, [place] 10% HER-2/david negative invasive ductal carcinoma s/p lumpectomy (10) Hyponatremia Current Visit: Yes Status: Acute Assessment and plan: Likely related to lung malignancy, consider possible SIADH Consider fluid restriction versus salt tablets - Subjective Interval history: Feeling less short of breath, bringing up yellowish phlegm, denies chest pain, no abdominal pain, dysuria, has been having chills, no fevers - Constitutional Vitals: Temp Pulse Resp BP Pulse Ox 98.1 F 116 18 132/74 92 06/05/17 07:27 06/05/17 07:27 06/05/17 07:27 06/05/17 07:27 06/05/17 09:45 General appearance: Present: A&O X 3 Exam: Head Head exam: Present: atraumatic, normocephalic - Eye Eye exam: Present: PERRL, conjuntiva pink, sclera anicteric Pupils: Present: PERRL - Neck Neck exam general surgery: Present: supple, trachea midline. Absent: lymphadenopathy - Respiratory Respiratory exam: Present: decreased breath sounds (Blunted breath sounds in the right base up to the mid to right lung, diffuse crackles bilaterally), CTAB , tachypnea. Absent: accessory muscle use, rales, rhonchi, wheezes - Cardiovascular Cardiovascular exam: Present: RRR, +S1, +S2, tachycardia. Absent: diastolic murmur, gallop, rubs, systolic murmur - GI/Abdominal GI/Abdominal exam: Present: normal bowel sounds, soft, no peritoneal signs. Absent: distended, tenderness - Extremities Exam Extremities exam: Present: warm, radial pulses palpable and symetrical. Absent : calf tenderness, cyanotic, pedal edema - Neurological Exam Neurological exam: Present: CN II-XII intact, oriented X3, no focal deficits. Absent: pronater drift, facial droop, speech deficit - Skin Skin exam: Present: dry, intac Internal Medicine: Result - Labs CBC & Chem 7: 06/05/17 03:20 06/05/17 03:20 Labs: Short CBC 06/05/17 Range/Units 03:20 WBC 21.4 H (4.3-11.1) K/mcL Hgb 9.9 L (11.5-15.4) g/dL Hct 30.4 L (35.3-44.9) % Plt Count 242 (140-400) K/mcL BMP 06/05/17 03:20 Sodium 128 L Potassium 3.9 Chloride 93 L Carbon Dioxide 25 BUN 13 Creatinine 0.80 Glucose 130 H Calcium 8.5 L Consult Discharge Plan - Plan Referrals: Julio Cesar Floyd MD [Non-Partnered Physician] -
[2017-06-05] MEDS: Furosemide 20 MG/2 ML VIAL IVP SCH (13:33)
--- NOTE | 2017-06-05 17:39 | Oncology Inp Progress Note ---
Date of Encounter: 06/05/17 Time of Encounter: 15:00 (1) Metastatic primary lung cancer Current Visit: Yes Status: Chronic Assessment and plan: s/p carboplatin Alimta C1, plan to add PDL1 with next cycle and s/p neulasta- admitted with SOB, hypoxemia on RA and tachycardia. CTA no PE. Robinson lung nodules , left sided consolidation/pneumonia. Rt fluid increased since prior drainage and compared to CXR 05/14. Pulm consult appreciated.Plan pleurex catheter drainage next wk. Plan d/w patient bedside. Qualifiers: Laterality: right Qualified Code(s): C34.91 - Malignant neoplasm of unspecified part of right bronchus or lung Oncology: Subj Interval history: Feel sbetter, well rested. O2 94% on oxygen 2l - Constitutional Vitals: Vital Signs Temp Pulse Resp BP Pulse Ox 06/05/17 16:37 98 F 108 15 126/74 93 06/05/17 11:45 98.4 F 115 18 146/80 91 06/05/17 09:45 92 06/05/17 07:27 98.1 F 116 18 132/74 94 06/04/17 23:39 98.6 F 116 14 116/70 94 06/04/17 21:38 93 06/04/17 19:42 98.1 F 121 20 135/74 91 Intake and Output 06/05/17 06/05/17 06/05/17 07:59 15:59 23:59 Intake Total 1100 / 1100 340 / 340 Output Total 400 / 400 100 / 100 650 / 650 Balance 700 / 700 240 / 240 -650 / -650 Intake: IV Fluids 1100 / 1100 100 / 100 Lactated Ringers 1,000 ML 1000 / 1000 @ 125 mls/hr IVC .Q8H HAKAN Rx#:[id number] Maxipime 1,000 MG In 100 / 100 100 / 100 Dextrose 5% (Minibag+) 100 ML 100 ML @ 200 mls/ hr IVPB Q8HR HAKAN Rx#: [id number] Oral 240 / 240 Output: Urine 400 / 400 100 / 100 650 / 650 Other: Meal Lunch Percent of Meal Consumed 5% General appearance: average body habitus - Head Head exam: Present: atraumatic, normal inspection - Eye Eye exam: Present: sclera anicteric - ENT Additional comments: O2NC - Neck Neck exam: Present: full ROM - Respiratory Respiratory exam: Present: CTAB - Cardiovascular Cardiovascular exam: Present: +S1, +S2 - GI/Abdominal GI/Abdominal exam: Present: normal bowel sounds, soft - Extremities Exam Extremities exam: Present: normal inspection - Neurological Exam Neurological exam: Present: alert, CN II-XII intact, oriented X3 - Psychiatric Psychiatric exam: Present: normal mood Oncology: Obj Data - Labs CBC & Chem 7: 06/05/17 03:20 06/05/17 03:20 Labs: Laboratory Results - last 24 hr 06/05/17 06/05/17 03:20 03:20 WBC 21.4 H RBC 3.58 L Hgb 9.9 L Hct 30.4 L MCV 84.9 MCH 27.7 L MCHC 32.6 RDW 13.2 Plt Count 242 MPV 8.9 L Immature Plt Fraction 2.6 Sodium 128 L Potassium 3.9 Chloride 93 L Carbon Dioxide 25 BUN 13 Creatinine 0.80 Est GFR ( Amer) > 60 Est GFR (Non-Af Amer) > 60 BUN/Creatinine Ratio 16 Glucose 130 H Calculated Osmolality 268 L Calcium 8.5 L Consult Discharge Plan - Plan Referrals: Julio Cesar Floyd MD [Non-Partnered Physician] -
[2017-06-05] MEDS: Magic Mouthwash 10 ML UD Cup PO PRN (21:51)
[2017-06-06] MEDS: Ringers Solution, Lactated 1,000 ML IVC SCH ×2 (01:46→01:47)
[2017-06-06] MEDS: *HR* Heparin 5,000 UNIT/ML VIAL SQ SCH ×3 (04:47→21:21)
[2017-06-06 05:06] LABS: Hemoglobin 10.1 g/dL (11.5-15.4); Mean Corpuscular HGB Conc 32.6 g/dL (31.6-35.5); Mean Corpuscular Hemoglobin 27.7 pg (28.0-33.3); Mean Corpuscular Volume 84.9 fL (83.0-100.0); Mean Platelet Volume 9.3 fL (9.4-12.4); Platelet Count 259 K/mcL (140-400); Red Blood Count 3.65 M/mcL (3.82-4.97); Red Cell Distribution Width 13.2 % (11.5-14.5)
[2017-06-06 05:20] LABS: BUN/Creatinine Ratio 19 (6-26); Blood Urea Nitrogen 15 mg/dL (7-20); Calcium 9.1 mg/dL (8.6-10.8); Carbon Dioxide 27 mEq/L (19-29); Chloride 91 mEq/L (98-109); Glucose 141 mg/dL (70-99); Osmolality,Calculated 269 (280-300); Potassium 4.1 mEq/L (3.5-4.5); Sodium 128 mEq/L (136-145); eGFR For African Americans > 60 (> 60); eGFR For Non-African Americans > 60 (> 60)
[2017-06-06] MEDS: Furosemide 20 MG/2 ML VIAL IVP SCH (07:38)
[2017-06-06] MEDS: amLODIPine 5 MG TABLET PO SCH (07:39)
[2017-06-06] MEDS: Multivit/Ca/Min/Fe/FA 1 TAB TABLET PO SCH (07:39)
[2017-06-06] MEDS: Aspirin Enteric Coated 81 MG Tablet PO SCH (07:39)
[2017-06-06] MEDS: Folic Acid 1 MG TABLET PO SCH (07:39)
[2017-06-06] MEDS: Anastrozole 1 MG TABLET PO SCH (07:39)
[2017-06-06] MEDS: VITAMIN D3 PO SCH ×2 (07:40→21:21)
[2017-06-06] MEDS: CALCIUM CARBONATE PO SCH ×2 (07:40→21:21)
[2017-06-06] MEDS: RAMIPRIL 10 MG PO SCH ×2 (07:41→21:21)
[2017-06-06] MEDS: Cefepime HCl 1,000 MG in D5% in Water (Mini-Bag+) 100 ML IVPB SCH ×3 (07:41→23:39)
--- NOTE | 2017-06-06 09:16 | Internal Med Progress Note ---
Date of Encounter: 06/06/17 Time of Encounter: 09:13 - Assessment and plan (1) Acute respiratory failure with hypoxia Current Visit: Yes Status: Acute Assessment and plan: Acute hypoxic respiratory failure secondary to sepsis due to possible community- acquired pneumonia in combination with large malignant right pleural effusion History of of adenocarcinoma of the lung stage IV with metastasis to the liver and osseous metastases Had recent chemotherapy on June 03 Continue Levaquin day 4, cefepime day 3 Pulmonary consulted to consider thoracenteses (today) versus Pleurx catheter ( will require one most likely in the near future) Lasix IV CT scan of the chest shows worsening right-sided large malignant pleural effusion, also findings concerning for lymphangitic spread Oncology on board (2) Pleural effusion Current Visit: Yes Status: Acute Assessment and plan: Right pleural effusion (3) Sepsis Current Visit: Yes Status: Acute Qualifiers: Sepsis type: sepsis due to unspecified organism Qualified Code(s): A41.9 - Sepsis, unspecified organism (4) Pneumonia Current Visit: Yes Status: Acute Qualifiers: Pneumonia type: due to unspecified organism Laterality: left Lung location: upper lobe of lung Qualified Code(s): J18.1 - Lobar pneumonia, unspecified organism (5) Metastatic primary lung cancer Current Visit: Yes Status: Chronic Qualifiers: Laterality: right Qualified Code(s): C34.91 - Malignant neoplasm of unspecified part of right bronchus or lung (6) HTN (hypertension) Current Visit: Yes Status: Chronic Assessment and plan: Stable Qualifiers: Hypertension type: essential hypertension Qualified Code(s): I10 - Essential (primary) hypertension (7) GABRIELA (acute kidney injury) Current Visit: Yes Status: Acute Assessment and plan: Secondary to infection (8) Hyperkalemia Current Visit: Yes Status: Acute Assessment and plan: Resolved (9) History of left breast cancer Current Visit: Yes Status: Acute Assessment and plan: History of breast cancer ER 90%, [place] 10% HER-2/david negative invasive ductal carcinoma s/p lumpectomy (10) Hyponatremia Current Visit: Yes Status: Acute Assessment and plan: Likely related to lung malignancy, consider possible SIADH Discontinue IV fluids Consider fluid restriction versus salt tablets if not improving after discontinuing fluids - Subjective Interval history: Oxygen requirements have come up to 6 L Feeling more short of breath, bringing up yellowish phlegm, denies chest pain, no abdominal pain, dysuria, has been having chills, no fevers - Constitutional Vitals: Temp Pulse Resp BP Pulse Ox 98.1 F 125 19 148/70 92 06/06/17 07:15 06/06/17 07:15 06/06/17 07:15 06/06/17 07:15 06/06/17 07:15 General appearance: Present: A&O X 3 Exam: Head Head exam: Present: atraumatic, normocephalic - Eye Eye exam: Present: PERRL, conjuntiva pink, sclera anicteric Pupils: Present: PERRL - Neck Neck exam general surgery: Present: supple, trachea midline. Absent: lymphadenopathy - Respiratory Respiratory exam: Present: decreased breath sounds (Blunted breath sounds in the right base up to the mid to right lung, diffuse crackles bilaterally), CTAB , tachypnea. Absent: accessory muscle use, rales, rhonchi, wheezes - Cardiovascular Cardiovascular exam: Present: RRR, +S1, +S2, tachycardia. Absent: diastolic murmur, gallop, rubs, systolic murmur - GI/Abdominal GI/Abdominal exam: Present: normal bowel sounds, soft, no peritoneal signs. Absent: distended, tenderness - Extremities Exam Extremities exam: Present: warm, radial pulses palpable and symetrical. Absent : calf tenderness, cyanotic, pedal edema - Neurological Exam Neurological exam: Present: CN II-XII intact, oriented X3, no focal deficits. Absent: pronater drift, facial droop, speech deficit - Skin Skin exam: Present: dry, intac Internal Medicine: Result - Labs CBC & Chem 7: 06/06/17 04:50 06/06/17 04:50 Labs: Short CBC 06/06/17 Range/Units 04:50 WBC 22.2 H (4.3-11.1) K/mcL Hgb 10.1 L (11.5-15.4) g/dL Hct 31.0 L (35.3-44.9) % Plt Count 259 (140-400) K/mcL [facility] 06/06/17 04:50 Sodium 128 L Potassium 4.1 Chloride 91 L Carbon Dioxide 27 BUN 15 Creatinine 0.80 Glucose 141 H Calcium 9.1 Consult Discharge Plan - Plan Referrals: Julio Cesar Floyd MD [Non-Partnered Physician] -
--- NOTE | 2017-06-06 09:24 | Pulmonology Progress Note ---
Date of Encounter: 06/06/17 Time of Encounter: 08:10 Assessment and Plan (1) Pleural effusion, malignant Current Visit: Yes Status: Acute Patient is more short of breath and explained to her about pleurx Pleural catheter, all risks alternatives and benefits and she agreed to have it done. Will arrange it for her this morning. (2) Acute respiratory failure with hypoxia Current Visit: Yes Status: Acute I expect she will do better after placing the PleurX catheter. (3) Lung cancer Current Visit: No Status: Acute Qualifiers: Laterality: unspecified laterality Qualified Code(s): C34.90 - Malignant neoplasm of unspecified part of unspecified bronchus or lung Subjective Principal diagnosis: Pneumonia Interval history: Patient have more dyspnea and needs higher FIO2 Objective PUL Vital signs: Last Vital Signs Temp 98.1 F 06/06/17 07:15 Pulse 125 06/06/17 07:15 Resp 19 06/06/17 07:15 BP 148/70 06/06/17 07:15 Pulse Ox 92 06/06/17 07:15 General appearance: appears uncomfortable Eyes: nonicteric ENT: oropharynx moist Neck: supple Effort: mildly labored Auscultation: left: clear, right: diminished breath sounds Percussion: right: dull Cardiovascular: regular rate and rhythm Gastrointestinal: normoactive bowel sounds Extremities: no cyanosis normal mental status, non-focal exam mood appropriate Results - Laboratory Findings CBC and BMP: 06/06/17 04:50 06/06/17 04:50 Abnormal lab findings: Abnormal lab results WBC 22.2 K/mcL (4.3-11.1) H 06/06/17 04:50 RBC 3.65 M/mcL (3.82-4.97) L 06/06/17 04:50 Hgb 10.1 g/dL (11.5-15.4) L 06/06/17 04:50 Hct 31.0 % (35.3-44.9) L 06/06/17 04:50 MCH 27.7 pg (28.0-33.3) L 06/06/17 04:50 MPV 9.3 fL (9.4-12.4) L 06/06/17 04:50 Neutrophils # 17.9 K/mcL (1.6-8.9) H 06/04/17 02:55 Monocytes # 1.8 K/mcL (0.0-1.3) H 06/04/17 02:55 Anisocytosis 1+ (Not Present) A 06/03/17 16:50 Sodium 128 mEq/L (136-145) L 06/06/17 04:50 Chloride 91 mEq/L (98-109) L 06/06/17 04:50 Glucose 141 mg/dL (70-99) H 06/06/17 04:50 Calculated Osmolality 269 (280-300) L 06/06/17 04:50 Magnesium 1.2 mg/dL (1.6-2.6) L 06/04/17 02:55 - Microbiology Findings Microbiology Findings: Microbiology, Last 48 Hours 06/03/17 23:59 Sputum Culture - Final Sputum - Diagnostic Findings Chest x-ray: report reviewed, image reviewed - Clinical Findings Intake & Output: Intake & Output 06/05/17 06/06/17 06/06/17 23:59 07:59 15:59 Intake Total 1340 / 1340 1100 / 1100 Output Total 660 / 660 400 / 400 Balance 680 / 680 700 / 700 Consult Discharge Plan - Plan Referrals: Julio Cesar Floyd MD [Non-Partnered Physician] -
--- NOTE | 2017-06-06 09:25 | Pre-Sedation Evaluation ---
Pre-sedation evaluation - Pre-sedation checklist Date of procedure: 06/06/17 Procedure: PleurX Pleural Catheter Recent Vitals: Last Vital Signs Temp 98.1 F 06/06/17 07:15 Pulse 125 06/06/17 07:15 Resp 19 06/06/17 07:15 BP 148/70 06/06/17 07:15 Pulse Ox 92 06/06/17 07:15 H&P (including ROS) documented in medical record: No Previous reaction to sedatives/anesthetics: Yes; explain in comment Dietary Status: NPO after Midnight Dentition: No loose teeth or bridges ASA Classification *see protocol: CLASS II-Mild systemic disease Plan of Care: Pt appropriate candidate for procedure/moderate/conscious sedation , Risks/benefits of procedure/sedation discussed w/ patient/family
--- NOTE | 2017-06-06 09:43 | Electrocardiograph Report ---
[place] [id number] Test Date: 2017-06-03 Pat Name: Meghan Odonnell Department: 102 Room: 3A Gender: F News Agent: Msc : 1940 Requested By: Natalio Garrett Order Number: [id number] Reading MD: David Tucker MD Measurements Intervals [place] Rate: 123 P: 21 SD: 120 QRS: -37 QRSD: 87 T: 51 QT: 274 QTc: 347 Interpretive Statements SINUS TACHYCARDIA MARKED LEFT AXIS DEVIATION BASELINE ARTIFACT Poor R wave progression Electronically Signed On 06-06-2017 9:41:57 EDT by David Tucker MD
[2017-06-06] MEDS: Levofloxacin 750 MG/150 ML 750 MG/150 ML BAG IVPB SCH (11:55)
[2017-06-06] MEDS ORDERED: RISEDRONATE SODIUM 35 MG PO SCH (20:00)
[2017-06-06] MEDS: Magic Mouthwash 10 ML UD Cup PO PRN (21:21)
[2017-06-07] MEDS: *HR* Heparin 5,000 UNIT/ML VIAL SQ SCH ×3 (05:11→20:55)
[2017-06-07] MEDS ORDERED: *HR* Metoprolol 5 MG/5 ML VIAL IVP PRN (08:48)
--- NOTE | 2017-06-07 08:53 | Internal Med Progress Note ---
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 Had recent chemotherapy on June 03 Continue Levaquin day 5, cefepime day 4 Pulmonary consulted , placed Pleurx catheter on 06/06/[address] scan of the chest shows worsening right-sided large malignant pleural effusion, also findings concerning for lymphangitic spread Oncology on board The patient is very tachycardic in the 130s, increased dose of Lopressor from 12.5 mg daily to twice a day and add IV Lopressor as needed (2) Pleural effusion Current Visit: Yes Status: Acute Assessment and plan: Right pleural effusion (3) Sepsis Current Visit: Yes Status: Acute Qualifiers: Sepsis type: sepsis due to unspecified organism Qualified Code(s): A41.9 - Sepsis, unspecified organism (4) Pneumonia Current Visit: Yes Status: Acute Qualifiers: Pneumonia type: due to unspecified organism Laterality: left Lung location: upper lobe of lung Qualified Code(s): J18.1 - Lobar pneumonia, unspecified organism (5) Metastatic primary lung cancer Current Visit: Yes Status: Chronic Qualifiers: Laterality: right Qualified Code(s): C34.91 - Malignant neoplasm of unspecified part of right bronchus or lung (6) HTN (hypertension) Current Visit: Yes Status: Chronic Assessment and plan: Stable Qualifiers: Hypertension type: essential hypertension Qualified Code(s): I10 - Essential (primary) hypertension (7) GABRIELA (acute kidney injury) Current Visit: Yes Status: Acute Assessment and plan: Secondary to infection (8) Hyperkalemia Current Visit: Yes Status: Acute Assessment and plan: Resolved (9) History of left breast cancer Current Visit: Yes Status: Acute Assessment and plan: History of breast cancer ER 90%, CA 10% HER-2/david negative invasive ductal carcinoma s/p lumpectomy (10) Hyponatremia Current Visit: Yes Status: Acute Assessment and plan: Not improving, Likely related to lung malignancy, consider possible SIADH Discontinued IV fluids Start salt tablets and monitor sodium levels - Subjective Interval history: Oxygen requirements have improved, patient is very tachycardic with a heart rate in the 130s Feeling more short of breath, bringing up yellowish phlegm, denies chest pain, no abdominal pain, dysuria, has been having chills, no fevers - Constitutional Vitals: Temp Pulse Resp BP Pulse Ox 97.5 F L 119 20 121/59 96 06/07/17 08:29 06/07/17 08:29 06/07/17 08:29 06/07/17 08:29 06/07/17 08:29 General appearance: Present: A&O X 3 - Head Head exam: Present: atraumatic, normocephalic - Eye Eye exam: Present: PERRL, conjuntiva pink, sclera anicteric Pupils: Present: PERRL - Neck Neck exam general surgery: Present: supple, trachea midline. Absent: lymphadenopathy - Respiratory Respiratory exam: Present: decreased breath sounds (Blunted breath sounds in the right base, Pleurx catheter in place), CTAB. Absent: accessory muscle use, rales, rhonchi, wheezes - Cardiovascular Cardiovascular exam: Present: RRR, +S1, +S2, tachycardia. Absent: diastolic murmur, gallop, rubs, systolic murmur - GI/Abdominal GI/Abdominal exam: Present: normal bowel sounds, soft, no peritoneal signs. Absent: distended, tenderness - Extremities Exam Extremities exam: Present: warm, radial pulses palpable and symetrical. Absent : calf tenderness, cyanotic, pedal edema - Neurological Exam Neurological exam: Present: CN II-XII intact, oriented X3, no focal deficits. Absent: pronater drift, facial droop, speech deficit - Skin Skin exam: Present: dry, intact Internal Medicine: Result - Labs CBC & Chem 7: 06/06/17 04:50 06/06/17 04:50 - Impressions Impressions Chest X-Ray 06/06/17 10:02 IMPRESSION: More consolidative appearance of the airspace disease in the left upper lung when compared to the prior study. Persistent airspace changes in the right mid and lower lung field. Large right effusion. There is a linear density over the right chest which may represent a small catheter. No pneumothorax is identified. D/ / 06/06/2017 11:06:13 Piedad Ray MD / bereket Interpreting Provider: Piedad Ray MD Consult Discharge Plan - Plan Referrals: Julio Cesar Floyd MD [Non-Partnered Physician] - 06/13/17 2:30 pm
[2017-06-07] MEDS: Cefepime HCl 1,000 MG in D5% in Water (Mini-Bag+) 100 ML IVPB SCH ×3 (09:00→23:30)
[2017-06-07] MEDS: Aspirin Enteric Coated 81 MG Tablet PO SCH (09:14)
[2017-06-07] MEDS: Folic Acid 1 MG TABLET PO SCH (09:14)
[2017-06-07] MEDS: Furosemide 40 MG/4 ML VIAL IVP SCH (09:14)
[2017-06-07] MEDS: Anastrozole 1 MG TABLET PO SCH (09:14)
[2017-06-07] MEDS: RAMIPRIL 10 MG PO SCH ×2 (09:15→20:56)
[2017-06-07] MEDS: CALCIUM CARBONATE PO SCH ×2 (09:15→20:56)
[2017-06-07] MEDS: Multivit/Ca/Min/Fe/FA 1 TAB TABLET PO SCH (09:15)
[2017-06-07] MEDS: amLODIPine 5 MG TABLET PO SCH (09:15)
[2017-06-07] MEDS: VITAMIN D3 PO SCH ×2 (09:15→20:56)
[2017-06-07] MEDS ORDERED: Levofloxacin 750 MG/150 ML 750 MG/150 ML BAG IVPB SCH (12:00)
--- NOTE | 2017-06-07 17:42 | Pulmonology Progress Note ---
Date of Encounter: 06/07/17 Time of Encounter: 03:35 Assessment and Plan (1) Pleural effusion, malignant Current Visit: Yes Status: Acute Patient is feeling better after placing Pleurx catheter and I have explained to her family member at the bedside in the presence of the nurse the entire procedure for how to drain using Pleurx catheter pleural effusion. Thousand mL of neurologic fluid was drained without any complications. Patient's will follow-up as outpatient. Please call for any questions. (2) Acute respiratory failure with hypoxia Current Visit: Yes Status: Acute Wean off oxygen as tolerated to keep SPO2 around 90% (3) Lung cancer Current Visit: No Status: Acute Qualifiers: Laterality: unspecified laterality Qualified Code(s): C34.90 - Malignant neoplasm of unspecified part of unspecified bronchus or lung Subjective Principal diagnosis: Pneumonia Interval history: Patient is feeling better today after placing the catheter Objective PUL Vital signs: Last Vital Signs Temp 97.7 F 06/07/17 14:58 Pulse 76 06/07/17 14:58 Resp 15 06/07/17 14:58 BP 97/61 06/07/17 14:58 Pulse Ox 98 06/07/17 14:58 General appearance: no acute distress Eyes: nonicteric ENT: oropharynx moist Neck: no lymphadenopathy Effort: normal Auscultation: left: clear, right: diminished breath sounds (Pleurx catheter in place) Percussion: right: dull Cardiovascular: regular rate and rhythm Gastrointestinal: normoactive bowel sounds Extremities: no cyanosis normal mental status mood appropriate Results - Laboratory Findings CBC and BMP: 06/06/17 04:50 06/06/17 04:50 Abnormal lab findings: Abnormal lab results WBC 22.2 K/mcL (4.3-11.1) H 06/06/17 04:50 RBC 3.65 M/mcL (3.82-4.97) L 06/06/17 04:50 Hgb 10.1 g/dL (11.5-15.4) L 06/06/17 04:50 Hct 31.0 % (35.3-44.9) L 06/06/17 04:50 MCH 27.7 pg (28.0-33.3) L 06/06/17 04:50 MPV 9.3 fL (9.4-12.4) L 06/06/17 04:50 Neutrophils # 17.9 K/mcL (1.6-8.9) H 06/04/17 02:55 Monocytes # 1.8 K/mcL (0.0-1.3) H 06/04/17 02:55 Anisocytosis 1+ (Not Present) A 06/03/17 16:50 Sodium 128 mEq/L (136-145) L 06/06/17 04:50 Chloride 91 mEq/L (98-109) L 06/06/17 04:50 Glucose 141 mg/dL (70-99) H 06/06/17 04:50 Calculated Osmolality 269 (280-300) L 06/06/17 04:50 Magnesium 1.2 mg/dL (1.6-2.6) L 06/04/17 02:55 - Microbiology Findings Microbiology Findings: Microbiology, Last 48 Hours 06/03/17 23:59 Sputum Culture - Final Sputum - Clinical Findings Intake & Output: Intake & Output 06/07/17 06/07/17 06/07/17 07:59 15:59 23:59 Intake Total 100 / 100 490 / 490 100 / 100 Output Total 2300 / 2300 Balance 100 / 100 -1810 / -1810 100 / 100 Weight 80.739 kg Consult Discharge Plan - Plan Referrals: Julio Cesar Floyd MD [Non-Partnered Physician] - 06/13/17 2:30 pm Kaushik Caldera MD [Partnered Physician] - 06/20/17 3:00 pm
[2017-06-08 04:59] LABS: Hematocrit 27.7 % (35.3-44.9); Hemoglobin 9.1 g/dL (11.5-15.4); Mean Corpuscular HGB Conc 32.9 g/dL (31.6-35.5); Mean Corpuscular Hemoglobin 27.7 pg (28.0-33.3); Mean Corpuscular Volume 84.2 fL (83.0-100.0); Mean Platelet Volume 9.2 fL (9.4-12.4); Platelet Count 289 K/mcL (140-400); Red Blood Count 3.29 M/mcL (3.82-4.97); Red Cell Distribution Width 13.4 % (11.5-14.5)
[2017-06-08 05:00] LABS: BUN/Creatinine Ratio 15 (6-26); Blood Urea Nitrogen 11 mg/dL (7-20); Calcium 8.7 mg/dL (8.6-10.8); Carbon Dioxide 34 mEq/L (19-29); Chloride 93 mEq/L (98-109); Glucose 99 mg/dL (70-99); Osmolality,Calculated 273 (280-300); Potassium 3.6 mEq/L (3.5-4.5); Sodium 132 mEq/L (136-145); eGFR For African Americans > 60 (> 60); eGFR For Non-African Americans > 60 (> 60)
[2017-06-08] MEDS: *HR* Heparin 5,000 UNIT/ML VIAL SQ SCH (05:44)
[2017-06-08 07:36] VITALS: BP 129/70
--- NOTE | 2017-06-08 08:07 | Oncology Inp Progress Note ---
Date of Encounter: 06/08/17 Time of Encounter: 08:00 (1) Metastatic primary lung cancer Current Visit: Yes Status: Chronic Assessment and plan: s/p carboplatin Alimta C1, plan to add PDL1 with next cycle and s/p neulasta- admitted with left sided consolidation/pneumonia, pleural effusion. s/p pleurex catheter, tolerated well. Tachycardia-meds titrated--HR 110 while pt communicating. Possible d/c after. Plan d/w patient bedside. Qualifiers: Laterality: right Qualified Code(s): C34.91 - Malignant neoplasm of unspecified part of right bronchus or lung Oncology: Subj Interval history: s/p pleurex catheter placement, denies pain, breathing well on O2 - Constitutional Vitals: Vital Signs Temp Pulse Resp BP Pulse Ox 06/08/17 07:35 98.1 F 102 17 129/70 94 06/08/17 04:58 98.0 F 92 14 126/73 91 06/07/17 23:25 98.6 F 90 14 121/72 90 06/07/17 21:08 97.9 F 106 14 126/74 91 06/07/17 20:30 95 06/07/17 17:47 112 16 95 06/07/17 14:58 97.7 F 76 15 97/61 98 06/07/17 11:07 96 06/07/17 10:47 97.4 F L 92 18 103/65 95 06/07/17 08:29 97.5 F L 119 20 121/59 96 Intake and Output 06/07/17 06/08/17 06/08/17 23:59 07:59 15:59 Intake Total 460 / 460 580 / 580 Output Total 200 / 200 700 / 700 Balance 260 / 260 -120 / -120 Intake: IV Fluids 100 / 100 100 / 100 Maxipime 1,000 MG In 100 / 100 100 / 100 Dextrose 5% (Minibag+) 100 ML 100 ML @ 200 mls/ hr IVPB Q8HR [facility] Rx#: [id number] Oral 360 / 360 480 / 480 Output: Urine 200 / 200 700 / 700 Other: Meal Dinner Percent of Meal Consumed 50% Weight 80.331 kg Patient Weight 06/08/17 23:59 Weight 80.331 kg General appearance: average body habitus - Head Head exam: Present: atraumatic, normal inspection - Eye Eye exam: Present: sclera anicteric - ENT Additional comments: NC 2 lt - Neck Neck exam: Present: full ROM, normal inspection - Cardiovascular Cardiovascular exam: Present: +S1, +S2, tachycardia - GI/Abdominal GI/Abdominal exam: Present: soft - Neurological Exam Neurological exam: Present: alert, CN II-XII intact, oriented X3 - Psychiatric Psychiatric exam: Present: normal affect Oncology: Obj Data - Labs CBC & Chem 7: 06/08/17 04:20 06/08/17 04:20 Labs: Laboratory Results - last 24 hr 06/08/17 06/08/17 04:20 04:20 WBC 7.8 D RBC 3.29 L Hgb 9.1 L Hct 27.7 L MCV 84.2 MCH 27.7 L MCHC 32.9 RDW 13.4 Plt Count 289 MPV 9.2 L Sodium 132 L Potassium 3.6 Chloride 93 L Carbon Dioxide 34 H BUN 11 Creatinine 0.73 Est GFR ( Amer) > 60 Est GFR (Non-Af Amer) > 60 BUN/Creatinine Ratio 15 Glucose 99 Calculated Osmolality 273 L Calcium 8.7 Consult Discharge Plan - Plan Referrals: Julio Cesar Floyd MD [Non-Partnered Physician] - 06/13/17 2:30 pm Kaushik Caldera MD [Partnered Physician] - 06/20/17 3:00 pm
[2017-06-08] MEDS: amLODIPine 5 MG TABLET PO SCH (09:07)
[2017-06-08] MEDS: Multivit/Ca/Min/Fe/FA 1 TAB TABLET PO SCH (09:07)
[2017-06-08] MEDS: Aspirin Enteric Coated 81 MG Tablet PO SCH (09:07)
[2017-06-08] MEDS: Furosemide 40 MG/4 ML VIAL IVP SCH (09:08)
[2017-06-08] MEDS: Folic Acid 1 MG TABLET PO SCH (09:08)
[2017-06-08] MEDS: Anastrozole 1 MG TABLET PO SCH (09:08)
[2017-06-08] MEDS: Cefepime HCl 1,000 MG in D5% in Water (Mini-Bag+) 100 ML IVPB SCH (09:08)
[2017-06-08] MEDS: CALCIUM CARBONATE PO SCH (09:16)
[2017-06-08] MEDS: VITAMIN D3 PO SCH (09:16)
[2017-06-08] MEDS: RAMIPRIL 10 MG PO SCH (09:17)
--- NOTE | 2017-06-08 09:41 | Discharge Summary ---
Date of Encounter: 06/08/17 Time of Encounter: 09:41 - Discharge Diagnosis (1) Acute respiratory failure with hypoxia Priority: Primary Status: Acute Comments: Acute hypoxic respiratory failure secondary to sepsis due to possible community- acquired pneumonia/gram-negative pneumonia in combination with large malignant right pleural effusion (2) Pleural effusion Priority: Primary Status: Acute (3) Sepsis Priority: Primary Status: Acute Qualifiers: Sepsis type: sepsis due to unspecified organism Qualified Code(s): A41.9 - Sepsis, unspecified organism (4) Pneumonia Priority: Primary Status: Acute Qualifiers: Pneumonia type: due to unspecified organism Laterality: left Lung location: upper lobe of lung Qualified Code(s): J18.1 - Lobar pneumonia, unspecified organism (5) Metastatic primary lung cancer Priority: Primary Status: Chronic Qualifiers: Laterality: right Qualified Code(s): C34.91 - Malignant neoplasm of unspecified part of right bronchus or lung (6) HTN (hypertension) Priority: Secondary Status: Chronic Qualifiers: Hypertension type: essential hypertension Qualified Code(s): I10 - Essential (primary) hypertension (7) GABRIELA (acute kidney injury) Priority: Secondary Status: Acute (8) Hyperkalemia Priority: Secondary Status: Acute (9) History of left breast cancer Priority: Secondary Status: Acute (10) Hyponatremia Priority: Secondary Status: Acute Comments: Responding to salt tablets - Discharge Medications Prescriptions: levoFLOXacin [Levaquin] 750 mg PO DAILY #2 tablet Metoprolol [Lopressor] 25 mg PO BID #60 tablet predniSONE [PredniSONE] 40 mg PO DAILY 12 Days Sodium Chloride 1 gm PO BID #60 tablet Home Medications: Aspirin [Lo-Dose Aspirin EC] 81 mg PO DAILY 08/05/16 [History] Calcium Carbonate/Vitamin D3 [Calcium 600 + Vit D Tablet] 1 tab PO BID 08/05/16 [History] Fish Oil/Dha/Epa [Fish Oil 1,200 mg Fish Oil] 1 cap PO DAILY 08/05/16 [History] Multivitamin [Multivitamins] 1 cap PO DAILY 08/05/16 [History] Ramipril [Altace] 10 mg PO BID 08/05/16 [History] Risedronate Sodium [Actonel] 35 mg PO MO 08/05/16 [History] amLODIPine [Norvasc] 5 mg PO DAILY 08/05/16 [History] Anastrozole [Arimidex] 1 mg PO DAILY #90 tablet 03/18/17 [Rx] Folic Acid 1 mg PO DAILY #30 tablet 05/17/17 [Rx] Magic Mouthwash [Magic Mouthwash BLM] 10 ml PO QID PRN #240 ml 05/17/17 [Rx] Prochlorperazine Maleate [Compazine] 10 mg PO Q8HR PRN #90 tablet 05/17/17 [Rx] Ondansetron [Zofran] 4 mg PO Q8HR PRN 06/03/17 [History] Metoprolol [Lopressor] 25 mg PO BID #60 tablet 06/08/17 [Rx] Sodium Chloride 1 gm PO BID #60 tablet 06/08/17 [Rx] levoFLOXacin [Levaquin] 750 mg PO DAILY #2 tablet 06/08/17 [Rx] predniSONE [PredniSONE] 40 mg PO DAILY 12 Days 06/08/17 [Rx] Allergies/Adverse Reactions: Allergies No Known Allergies Allergy (Verified 05/10/17 09:07) Date of admission: 06/03/17 20:08 Primary care physician: PCP NO Consults: 06/03/17 20:56 Consult to Nutrition [CONS] Routine Comment: Consulting Provider: NUTRITION Reason for Dietary Consult: MST Score 06/04/17 10:48 Consult to Pulmonology [CONS] Routine Consulting Provider: Pulm Crit [facility] Sleep Malika Reason for Consult: large right pleural effusion Call Completed: Yes - Patient Status Disposition: Home Health Service Condition: Good Overall status at discharge: patient is progressing back to baseline - Discharge Instructions Follow Up With: Julio Cesar Floyd MD [Non-Partnered Physician] - 06/13/17 2:30 pm Kaushik Caldera MD [Partnered Physician] - 06/20/17 3:00 pm Additional Instructions: Follow-up with primary care physician within the next 7 days. Follow-up with oncology within the next 2 weeks. Follow-up with pulmonary within the next 2 weeks. Complete 2 more days off Levaquin. Taper prednisone. Continue salt tablets. Increase Lopressor to 25 mg twice a day - Diet and Activity Activity: increase activity as tolerated Diet: regular diet Hospital course: Ms. Odonnell is a 76 year old female with a history of adenocarcinoma of the lung stage IV with metastasis to the liver and osseous metastasessignificant for hypertension, ER 90%, [place] 10% HER-2/david negative invasive ductal carcinoma s/p lumpectomy/right lung cancer with bone, liver and brain metastasis/right-sided pleural effusion was sent from her oncologist's office for fever and dyspnea. She was seen by her oncologist and noted to have difficulty breathing and a temperature reading of 101.9 so she was sent to the ER for evaluation. In the ER her pulse ox reading was 84% on room air. She reported having been unwell for weeks with malaise, cough productive of foamy clear material, nausea and sometimes vomiting episodes with lightheadedness. These symptoms have also been associated with dyspnea and dyspnea on exertion, fatigue and poor exercise tolerance. CT scan of the chest shows worsening right-sided large malignant pleural effusion, also findings concerning for lymphangitic spread Had recent chemotherapy on June 03 Was started on Levaquin day 6, and cefepime day 5 Pulmonary consulted , placed Pleurx catheter on 06/06/2017 The patient require up to 6 L of oxygen which improved after the Pleurx catheter was placed. She became tachycardic more than 130 bpm. Her dose of Lopressor has been increased from 12.5 once daily up to 25 mg twice a day. She was given the option to stay an additional day to control her heart rate little better but she prefers to go home at the moment. Oxygen will be provided if needed Her sodium was low during admission decreased down to 126 improved only after starting salt tablets. - Time Spent with Patient Total time spent providing and/or coordinating discharge services: Greater than 30 minutes (40 min) - Constitutional Vitals: Temp Pulse Resp BP Pulse Ox 98.1 F 102 17 129/70 94 06/08/17 07:35 06/08/17 07:35 06/08/17 07:35 06/08/17 07:35 06/08/17 07:35 General appearance: Present: A&O X 3 Exam: Head Head exam: Present: atraumatic, normocephalic - Eye Eye exam: Present: PERRL, conjuntiva pink, sclera anicteric Pupils: Present: PERRL - Neck Neck exam general surgery: Present: supple, trachea midline. Absent: lymphadenopathy - Respiratory Respiratory exam: Present: decreased breath sounds (Blunted breath sounds in the right base, Pleurx catheter in place), CTAB. Absent: accessory muscle use, rales, rhonchi, wheezes - Cardiovascular Cardiovascular exam: Present: RRR, +S1, +S2, tachycardia. Absent: diastolic murmur, gallop, rubs, systolic murmur - GI/Abdominal GI/Abdominal exam: Present: normal bowel sounds, soft, no peritoneal signs. Absent: distended, tenderness - Extremities Exam Extremities exam: Present: warm, radial pulses palpable and symetrical. Absent : calf tenderness, cyanotic, pedal edema - Neurological Exam Neurological exam: Present: CN II-XII intact, oriented X3, no focal deficits. Absent: pronater drift, facial droop, speech deficit - Skin Skin exam: Present: dry, intact
[2017-06-08] MEDS ORDERED: predniSONE 20 MG TABLET PO SCH (09:45)
--- NOTE | 2017-06-08 09:54 | Physician Discharge Referral ---
Home Health/Hosp Referral Info Transfer to: Home Health Provider in Charge Post Discharge: PCP - Diagnosis (1) Acute respiratory failure with hypoxia Status: Acute (2) Pleural effusion Status: Acute (3) Sepsis Status: Acute (4) Pneumonia Status: Acute (5) Metastatic primary lung cancer Status: Chronic (6) HTN (hypertension) Status: Chronic (7) GABRIELA (acute kidney injury) Status: Acute (8) Hyperkalemia Status: Acute (9) History of left breast cancer Status: Acute (10) Hyponatremia Status: Acute - Respiratory Orders Oxygen / L per min (2 L as needed) Smoking Cessation: Smoking cessation has been advised. For more information, call the [place] Tobacco Quit Line at 6-730-ENRP-NOW. - Diet/Nutrition Diet/Nutrition Orders: Regular - Services Needed Following services are medically necessary services: Nursing, Home Health Aide Home Care Orders: Follow-up with primary care physician within the next 7 days. Follow-up with oncology within the next 2 weeks. Follow-up with pulmonary within the next 2 weeks. Complete 2 more days off Levaquin. Taper prednisone. Continue salt tablets. Increase Lopressor to 25 mg twice a day - Transfer Medications Prescriptions: levoFLOXacin [Levaquin] 750 mg PO DAILY #2 tablet Metoprolol [Lopressor] 25 mg PO BID #60 tablet predniSONE [PredniSONE] 40 mg PO DAILY 12 Days Sodium Chloride 1 gm PO BID #60 tablet Home Medications: Aspirin [Lo-Dose Aspirin EC] 81 mg PO DAILY 08/05/16 [History] Calcium Carbonate/Vitamin D3 [Calcium 600 + Vit D Tablet] 1 tab PO BID 08/05/16 [History] Fish Oil/Dha/Epa [Fish Oil 1,200 mg Fish Oil] 1 cap PO DAILY 08/05/16 [History] Multivitamin [Multivitamins] 1 cap PO DAILY 08/05/16 [History] Ramipril [Altace] 10 mg PO BID 08/05/16 [History] Risedronate Sodium [Actonel] 35 mg PO MO 08/05/16 [History] amLODIPine [Norvasc] 5 mg PO DAILY 08/05/16 [History] Anastrozole [Arimidex] 1 mg PO DAILY #90 tablet 03/18/17 [Rx] Folic Acid 1 mg PO DAILY #30 tablet 05/17/17 [Rx] Magic Mouthwash [Magic Mouthwash BLM] 10 ml PO QID PRN #240 ml 05/17/17 [Rx] Prochlorperazine Maleate [Compazine] 10 mg PO Q8HR PRN #90 tablet 05/17/17 [Rx] Ondansetron [Zofran] 4 mg PO Q8HR PRN 06/03/17 [History] Metoprolol [Lopressor] 25 mg PO BID #60 tablet 06/08/17 [Rx] Sodium Chloride 1 gm PO BID #60 tablet 06/08/17 [Rx] levoFLOXacin [Levaquin] 750 mg PO DAILY #2 tablet 06/08/17 [Rx] predniSONE [PredniSONE] 40 mg PO DAILY 12 Days 06/08/17 [Rx] Allergies/Adverse Reactions: Allergies No Known Allergies Allergy (Verified 05/10/17 09:07) Certification: Further, I certify that my clinical findings support that this patient is homebound (i.e. absences from home require considerable and taxing effort and are for medical reasons or yarsani services or infrequently or short duration when for other reasons) because: Homebound Reason: Patient requires assistance of a person or device to safely leave home Attestation: My signature below is to certify that this patient is under my care and that I, or nurse practitioner, or a physician's child life assistant working with me, has a face-to -face encounter with this patient.
[2017-06-13] MEDS ORDERED: ACTONEL 35 MG PO SCH ×2 (06:30)
== END 2017-06-08 11:52 | disposition home health service (06) | DRG 871 ==
LOC: EMEROO 16:05 → 3ANU 16:05 → SUATTDRO 20:08 → 3ANU 20:50
PROVIDERS: ADMIT Internal Medicine Endocrinology, Diabetes & Metabolism; ATTEND Internal Medicine

== ENCOUNTER 2017-06-27 14:24 | Inpatient (IN) ==
[2017-06-27 15:25] LABS: Basophils % 0.1 %; Eosinophils # 0.2 K/mcL (0.0-0.6); Eosinophils % 1.1 %; Hematocrit 23.7 % (35.3-44.9); Lymphocytes # 0.7 K/mcL (0.6-4.6); Lymphocytes % 4.6 %; Mean Corpuscular HGB Conc 32.9 g/dL (31.6-35.5); Mean Corpuscular Hemoglobin 28.6 pg (28.0-33.3); Mean Corpuscular Volume 86.8 fL (83.0-100.0); Mean Platelet Volume 9.5 fL (9.4-12.4); Monocytes % 6.5 %; Neutrophils # 13.9 K/mcL (1.6-8.9); Platelet Count 172 K/mcL (140-400); Red Blood Count 2.73 M/mcL (3.82-4.97); Red Cell Distribution Width 16.5 % (11.5-14.5); Segmented Neutrophils % 86.7 %
[2017-06-27 15:30] LABS: INR 1.1; Prothrombin Time 11.8 Seconds (9.4-12.1)
[2017-06-27 15:33] LABS: Activated Partial Thrombo Time 28.1 Seconds (26.0-36.0)
[2017-06-27 15:36] LABS: BUN/Creatinine Ratio 49 (6-26); Blood Urea Nitrogen 48 mg/dL (7-20); Calcium 9.9 mg/dL (8.6-10.8); Carbon Dioxide 27 mEq/L (19-29); Chloride 98 mEq/L (98-109); Glucose 137 mg/dL (70-99); Osmolality,Calculated 289 (280-300); Sodium 132 mEq/L (136-145); eGFR For African Americans > 60 (> 60); eGFR For Non-African Americans 55 (> 60)
[2017-06-27 15:38] LABS: Hemoglobin 7.8 g/dL (11.5-15.4)
--- NOTE | 2017-06-27 15:59 | Emergency Department Note ---
Disposition Clinical Impression: Melena DVT (deep venous thrombosis) Qualifiers: DVT location: lower extremity Affected thrombotic vein of extremity: tibial Chronicity: acute Laterality: left Qualified Code(s): I82.442 - Acute embolism and thrombosis of left tibial vein Disposition: Admitted As Inpatient Condition: Good Time of Disposition: 18:13 General Adult HPI - General Chief complaint: ED GI Bleed Stated complaint: low bp/ bloody stool Time Seen by Provider: 06/27/17 15:09 Source: patient, family Limitations: no limitations Nursing Notes Reviewed: Yes Vital Signs Reviewed: Yes - History of Present Illness HPI Narrative: Female patient sent from the cancer center for melena. She is complaining of a 2 day history of this. She denies any abdominal pain or nausea or vomiting. She states she has had dark tarry stools for 2 days. She is complaining of a chronic pain to her right posterior chest. She states this is consistent with where her Pleur-evac is. She denies any fever. She has reported generalized weakness for the past 2 days. Pain Scale: 2 - Related Data Home Medications Medication Instructions Recorded Confirmed Aspirin [Lo-Dose Aspirin EC] 81 mg PO DAILY 08/05/16 06/27/17 Calcium Carbonate/Vitamin D3 1 tab PO BID 08/05/16 06/27/17 [Calcium 600 + Vit D Tablet] Fish Oil/Dha/Epa [Fish Oil 1,200 1 cap PO DAILY 08/05/16 06/27/17 mg Fish Oil] Multivitamin [Multivitamins] 1 cap PO DAILY 08/05/16 06/27/17 Ramipril [Altace] 10 mg PO BID 08/05/16 06/27/17 amLODIPine [Norvasc] 5 mg PO DAILY 08/05/16 06/27/17 Ondansetron [Zofran] 4 mg PO Q8HR PRN 06/03/17 06/27/17 Dexamethasone [Decadron] 4 mg PO AD 06/27/17 Simvastatin [Zocor] 20 mg PO HS 06/27/17 06/27/17 Previous Rx's Medication Instructions Recorded Anastrozole [Arimidex] 1 mg PO DAILY #90 tablet 03/18/17 Folic Acid 1 mg PO DAILY #30 tablet 05/17/17 Magic Mouthwash [Magic Mouthwash 10 ml PO QID PRN #240 ml 05/17/17 BLM] Prochlorperazine Maleate 10 mg PO Q8HR PRN #90 tablet 05/17/17 [Compazine] Metoprolol [Lopressor] 25 mg PO BID #60 tablet 06/08/17 Furosemide [Lasix] 20 mg PO DAILY #30 tablet 06/14/17 valACYclovir [Valtrex] 500 mg PO DAILY #30 tablet 06/14/17 Allergies Allergy/AdvReac Type Severity Reaction Status Date / Time No Known Allergies Allergy Verified 05/10/17 09:07 All systems ED: reviewed and negative except as stated. Constitutional: Denies: fever, chills Cardiovascular: Denies: chest pain, palpitations, syncope Respiratory: Denies: cough, dyspnea Gastrointestinal: Reports: melena. Denies: abdominal pain, nausea, vomiting, diarrhea, hematemesis, hematochezia Genitourinary: Denies: urgency, dysuria, frequency, hematuria, discharge Musculoskeletal: Denies: back pain, neck pain Integumentary: Denies: rash, abrasion, lesions Neurological: Denies: headache, weakness, numbness, paresthesias Psychiatric: Denies: anxiety Past Medical History - Past Medical History Medical history: Reports: cancer, hyperlipidemia, hypertension, other Surgical history: Reports: breast surgery (left breast lumpectomy), hysterectomy Psychiatric history: Reports: no psych history - Social History Smoking Status: Never smoker Smokeless Tobacco Status: No Alcohol use: Reports: none, occasionally Drug use: Reports: none Physical Exam - General Limitations: no limitations General appearance: alert, in no apparent distress - Head Head exam: atraumatic, normocephalic, normal inspection - Eye Eye exam: Present: normal appearance, PERRL, EOMI. Absent: scleral icterus - ENT ENT exam: normal exam, normal oropharynx, mucous membranes moist - Neck Neck exam: Present: normal inspection, full ROM, trachea midline. Absent: tenderness, meningismus - Chest Chest inspection: Present: normal inspection. Absent: symmetric chest wall rise - Respiratory Respiratory exam: Present: normal lung sounds bilaterally. Absent: respiratory distress - Cardiovascular Cardiovascular exam: Present: regular rate, normal rhythm, normal heart sounds - Abdominal Exam Abdominal exam: Present: soft, Non-Tender, normal bowel sounds. Absent: tenderness, distention, guarding, rebound, rigidity - Rectal Exam Rectal exam: Present: black stool - Extremities Exam Extremities exam: Present: normal inspection, full ROM, pedal edema. Absent: tenderness, normal capillary refill - Back Exam Back exam: Present: normal inspection, full ROM. Absent: tenderness, CVA tenderness (R), CVA tenderness (L) - Neurological Exam Neurological exam: Present: alert, oriented X3 - Psychiatric Psychiatric exam: Present: normal affect, normal mood - Skin Skin exam: Present: warm, dry, intact, normal color, other (Pleura catheter to right posterior chest wall. Appropriately dressed at this time.). Absent: rash , cyanosis, diaphoresis Course Course Narrative: Female patient with a history of left-sided breast cancer that has been in remission and now right-sided lung cancer presenting to the emergency department complaining of a 2 day history of dark tarry stools. She states that she was constipated for proximally 7 days and then begin to take Metamucil. She states that this relieved her constipation. She states she did have one hard stool but has had normal stools since. She states that yesterday she started having a dark tarry stool. She denies any bright red blood per rectum. She denies any nausea or vomiting. On rectal exam she does have a dark stool. She does have an external hemorrhoid that does not appear to be bleeding at this time. She also has some skin breakdown on her buttocks. This does not appear to be infected. Her white count is elevated. And her hemoglobin is low. We will order 2 units of blood and admit patient to the hospital. His skin patient's abdomen. On exam it is soft and nontender however I am concerned for possible intra-abdominal process due to the bleeding as well as her low hemoglobin and elevated white blood cell count. She otherwise states that she just feels generalized weakness over the past 2 days. SHe was hypotensive at the cancer center today. Her initial blood pressure was low however repeats were within normal limits. - Reevaluation(s) Reevaluation #1: Patient has a DVT in her left lower extremity. Currently she likely has a GI bleed. Her hemoglobin is low. She is having melena. We are still awaiting her fecal Hemoccult. We will withhold any type of anticoagulation at this time due to her active bleeding. We will admit patient to the hospital. Time: 17:54 Vital Signs Temperature 97.7 F 06/27/17 14:27 Pulse Rate 104 06/27/17 14:27 Respiratory Rate 16 06/27/17 14:27 Blood Pressure 95/53 06/27/17 14:27 O2 Sat by Pulse Oximetry 97 06/27/17 14:27 Temperature 97.8 F 06/27/17 18:46 Pulse Rate 94 06/27/17 18:46 Respiratory Rate 16 06/27/17 18:46 Blood Pressure 111/47 06/27/17 18:46 O2 Sat by Pulse Oximetry 98 06/27/17 18:46 Oxygen Delivery Oxygen Delivery Room Air Medical Decision Making - Medical Records Medical records reviewed: Yes I reviewed the patient's medical records. - Lab Data Lab results reviewed: Yes I reviewed the patient's lab results. Result diagrams: 06/27/17 15:10 06/27/17 15:10 Lab Results 06/27/17 06/27/17 06/27/17 Range/Units 15:10 15:10 15:10 WBC 16.0 H (4.3-11.1) K/mcL RBC 2.73 L (3.82-4.97) M/mcL Hgb 7.8 L (11.5-15.4) g/dL Hct 23.7 L (35.3-44.9) % MCV 86.8 (83.0-100.0) fL MCH 28.6 (28.0-33.3) pg MCHC 32.9 (31.6-35.5) g/dL RDW 16.5 H (11.5-14.5) % Plt Count 172 (140-400) K/mcL MPV 9.5 (9.4-12.4) fL Immature Gran % 1.0 (0-4) % Seg Neutrophils % 86.7 % Lymphocytes % 4.6 % Monocytes % 6.5 % Eosinophils % 1.1 % Basophils % 0.1 % Neutrophils # 13.9 H (1.6-8.9) K/mcL Lymphocytes # 0.7 (0.6-4.6) K/mcL Monocytes # 1.0 (0.0-1.3) K/mcL Eosinophils # 0.2 (0.0-0.6) K/mcL Basophils # 0.0 (0.0-0.2) K/mcL PT 11.8 (9.4-12.1) Seconds INR 1.1 APTT 28.1 (26.0-36.0) Seconds Sodium 132 L (136-145) mEq/L Potassium 5.0 H (3.5-4.5) mEq/L Chloride 98 (98-109) mEq/L Carbon Dioxide 27 (19-29) mEq/L BUN 48 H (7-20) mg/dL Creatinine 0.98 (0.57-1.11) mg/dL Est GFR ( Amer) > 60 (> 60) Est GFR (Non-Af Amer) 55 L (> 60) BUN/Creatinine Ratio 49 H (6-26) Glucose 137 H (70-99) mg/dL Calculated Osmolality 289 (280-300) Calcium 9.9 (8.6-10.8) mg/dL Blood Type Antibody Screen Crossmatch 06/27/17 Range/Units 15:10 WBC (4.3-11.1) K/mcL RBC (3.82-4.97) M/mcL Hgb (11.5-15.4) g/dL Hct (35.3-44.9) % MCV (83.0-100.0) fL MCH (28.0-33.3) pg MCHC (31.6-35.5) g/dL RDW (11.5-14.5) % Plt Count (140-400) K/mcL MPV (9.4-12.4) fL Immature Gran % (0-4) % Seg Neutrophils % % Lymphocytes % % Monocytes % % Eosinophils % % Basophils % % Neutrophils # (1.6-8.9) K/mcL Lymphocytes # (0.6-4.6) K/mcL Monocytes # (0.0-1.3) K/mcL Eosinophils # (0.0-0.6) K/mcL Basophils # (0.0-0.2) K/mcL PT (9.4-12.1) Seconds INR APTT (26.0-36.0) Seconds Sodium (136-145) mEq/L Potassium (3.5-4.5) mEq/L Chloride (98-109) mEq/L Carbon Dioxide (19-29) mEq/L BUN (7-20) mg/dL Creatinine (0.57-1.11) mg/dL Est GFR ( Amer) (> 60) Est GFR (Non-Af Amer) (> 60) BUN/Creatinine Ratio (6-26) Glucose (70-99) mg/dL Calculated Osmolality (280-300) Calcium (8.6-10.8) mg/dL Blood Type O POSITIVE Antibody Screen NEGATIVE Crossmatch See Detail - Radiology Data Radiology results reviewed: Yes I reviewed the patient's radiology results. Abdomen/Pelvis CT 06/27/17 16:44 IMPRESSION: 1. Loculated right pleural effusion is decreased in size from previous chest CT. 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 Cavitary masslike lesion involving the parahilar region of the right lower lobe measures approximately 1.9 cm but is incompletely evaluated. 2. Numerous, widespread micronodules throughout both lungs, incompletely evaluated. At least several of these nodules appears slightly increased in size compared to the prior PET-CT, and are concerning for metastatic lesions 3. Interval improvement of hepatic metastases compared to the prior PET-CT 4. Widespread metastatic disease involving the skeleton, which has progressed from the previous exam 5. Diverticulosis D/ / Willaim Pirce MD / William Price MD Interpreting Provider: William Price MD Her gait - EKG Data EKG #1 EKG attestation: Yes I reviewed and interpreted this EKG. EKG results narrative: Normal sinus rhythm at a rate of 92. ND interval is 135. Sikh is 89. QT is 327. QTC is 377. No signs of Acute ischemia. No previous EKG to compare to. Attestation Statement - Attestation Attestation: I examined this patient and my medical decision-making was reviewed with the Resident Physician. I agree with the documented findings, disposition and treatment plan as described except to the extent set forth below. Patient emergency department complaining of dark stools. Low blood pressure. Patient currently being treated for lung cancer and has a pleural catheter in place. On examination she is well appearing. Her blood pressure was stable here. Diminished breath sounds right lung base. Abdomen soft nontender. Rectal exam reveals black stool. Plan. Patient's hemoglobin is dropped to 7. She is typed and crossed. We will begin transfusion. She is also positive for DVT. No anticoagulation at this time secondary to acute GI bleed with acute blood loss anemia. Patient is admitted to medicine. 45 minutes of critical care exclusive of separately billable procedures.
[2017-06-27] MEDS ORDERED: 0.9 % Sodium Chloride 250 ML ONE (16:14)
[2017-06-27] MEDS ORDERED: Ondansetron ODT 4 MG TAB.RAPDIS PO PRN (21:18)
[2017-06-27] MEDS ORDERED: Naloxone 0.4 MG/ML INJ IVP PRN (21:19)
[2017-06-27] MEDS ORDERED: Ondansetron 4 MG/2 ML VIAL IVP PRN (21:19)
[2017-06-27] MEDS ORDERED: Heparin 25,000 UNIT/500 ML D5W 25,000 UNIT/500 ML MLS IVC SCH (21:30)
--- NOTE | 2017-06-27 21:35 | Internal Med History&Physical ---
Date of Encounter: 06/27/17 Time of Encounter: 21:33 Assessment and Plan (1) Melena Current visit: Yes Status: Acute consult GI, to get 2 pRBC ordered from the ED. Trend H/H q6. Start protonix gtt , d/c diet and place on clears for now, D/c NSAIDs and substitute tramadol prn for pain (2) DVT (deep venous thrombosis) Current visit: Yes Status: Acute high risk given active cancer. However has some bleeding above. Will place on low dose heparin gtt w/o bolus. Monitor carefully and stop if Hb/bleeding worsen. Consult oncology to assist with plan of care Qualifiers: DVT location: lower extremity Affected thrombotic vein of extremity: tibial Chronicity: acute Laterality: left Qualified Code(s): I82.442 - Acute embolism and thrombosis of left tibial vein (3) HTN (hypertension) Current visit: No Status: Chronic now BP normal. Hold home anti- HTN Qualifiers: Hypertension type: essential hypertension Qualified Code(s): I10 - Essential (primary) hypertension (4) Metastatic primary lung cancer Current visit: No Status: Chronic on therapy. outpatient follow up with oncology Hold AI arimedex for hx of breast chemo. Lung cancer likely to be major mortality/morbidity at current Qualifiers: Laterality: right Qualified Code(s): C34.91 - Malignant neoplasm of unspecified part of right bronchus or lung Internal Medicine - H&P: HPI Chief complaint: Melena History of present illness: Ms. Odonnell is a 76 year old female with hx of breast cancer and now what appears to be metastatic lung adenoca who presents with 2 days hx of melena in the setting of ibuprofen use for pain and LLE swelling worsening of at least several days and was found to have a concomitant left tibial DVT - swelling in LLE She is on chemo-immunotherapy therapy at current and appears to be doing stable. She has a right pleurx for intermittent drainage of plueral effusion. Past Med Surg Social Fam HX - Past Medical History Medical history: cancer, hyperlipidemia, hypertension, other Psychiatric history: no psych history - Past Surgical History Surgical History: breast surgery, hysterectomy - Social History Smoking Status: Former smoker Smokeless Tobacco Status: No Alcohol use: none, occasionally Drug use: none - Family History Mother Living Status: Hx Family Cardiac Disorders: Yes Hx Family Endocrine Disorder: Yes Internal Medicine - H&P: Meds Aspirin [Lo-Dose Aspirin EC] 81 mg PO DAILY 08/05/16 [History] Calcium Carbonate/Vitamin D3 [Calcium 600 + Vit D Tablet] 1 tab PO BID 08/05/16 [History] Fish Oil/Dha/Epa [Fish Oil 1,200 mg Fish Oil] 1 cap PO DAILY 08/05/16 [History] Multivitamin [Multivitamins] 1 cap PO DAILY 08/05/16 [History] Ramipril [Altace] 10 mg PO BID 08/05/16 [History] amLODIPine [Norvasc] 5 mg PO DAILY 08/05/16 [History] Anastrozole [Arimidex] 1 mg PO DAILY #90 tablet 03/18/17 [Rx] Folic Acid 1 mg PO DAILY #30 tablet 05/17/17 [Rx] Magic Mouthwash [Magic Mouthwash BLM] 10 ml PO QID PRN #240 ml 05/17/17 [Rx] Prochlorperazine Maleate [Compazine] 10 mg PO Q8HR PRN #90 tablet 05/17/17 [Rx] Ondansetron [Zofran] 4 mg PO Q8HR PRN 06/03/17 [History] Metoprolol [Lopressor] 25 mg PO BID #60 tablet 06/08/17 [Rx] Furosemide [Lasix] 20 mg PO DAILY #30 tablet 06/14/17 [Rx] valACYclovir [Valtrex] 500 mg PO DAILY #30 tablet 06/14/17 [Rx] Dexamethasone [Decadron] 4 mg PO AD 06/27/17 [History] Simvastatin [Zocor] 20 mg PO HS 06/27/17 [History] Allergies No Known Allergies Allergy (Verified 05/10/17 09:07) All Systems PM: A 10-system review of systems was performed and is negative for pertinent findings except as documented above in the HPI. Review of systems: ROS 14 point review of systems reviewed as best as possible given presentation. Pertinent positive or negative as per HPI or otherwise reviewed as negative - Constitutional Vitals: Temp Pulse Resp BP Pulse Ox 98.4 F 89 16 92/46 98 06/27/17 19:43 06/27/17 19:43 06/27/17 19:43 06/27/17 19:43 06/27/17 19:43 Exam: General - AAO x 3 Psych - Appropriate affect/speech. No agitation Eyes - MAR. Eye lids intact. No scleral icterus ENT - Oral mucosa pink, dentition intact. External ear clear/dry/intact. No thyromegaly Lymphatics - No cervical/inguinal lympadenopathy Neuro - No gross peripheral or central neuro deficits with intact CN 2-12 exam Heart - Sinus. RRR. S1 and S2 present. No added HS/murmurs appreciated. No elevated JVD appreciated. Lung - Adequate air entry b/l, her basal crackles no wheezes. Pleurx catheter right GI - Soft, non-tender. No hepatosplenomegaly/ascities. BS+ - No CVA/suprapubic tenderness or palpable bladder distension Skin - Intact. No rash/petechiae/ecchymosis. Warm extremities MSK - Joints with normal ROM. No joint swellings. Lower extremity swelling Internal Med - H&P Results - Labs CBC & Chem 7: 06/27/17 15:10 06/27/17 15:10 - VTE Reasons for not Prescribing Prophylaxis: Not indicated-Anticoagulated or INR therapeutic
[2017-06-27 22:19] LABS: Hematocrit 22.3 % (35.3-44.9); Hemoglobin 7.3 g/dL (11.5-15.4)
[2017-06-27] MEDS: traMADol 50 MG TABLET PO PRN (23:10)
[2017-06-27] MEDS: Pantoprazole 40 MG VIAL IVP ONE (23:11)
[2017-06-27] MEDS: Pantoprazole 40 MG in 0.9 % Sodium Chloride Mini Bag 100 ML IVC SCH (23:12)
[2017-06-27] MEDS: Ringers Solution, Lactated 1,000 ML IVC SCH (23:12)
[2017-06-28] MEDS ORDERED: 0.9 % Sodium Chloride 250 ML ONE (05:10)
[2017-06-28] MEDS: Pantoprazole 40 MG in 0.9 % Sodium Chloride Mini Bag 100 ML IVC SCH ×2 (05:38→10:46)
[2017-06-28] MEDS: traMADol 50 MG TABLET PO PRN ×3 (05:38→18:55)
[2017-06-28 06:07] LABS: Basophils % 0.3 %; Eosinophils # 0.2 K/mcL (0.0-0.6); Eosinophils % 2.4 %; Hematocrit 21.4 % (35.3-44.9); Hemoglobin 7.2 g/dL (11.5-15.4); Immature Granulocytes % 0.9 % (0-4); Mean Corpuscular HGB Conc 33.6 g/dL (31.6-35.5); Mean Corpuscular Hemoglobin 29.3 pg (28.0-33.3); Monocytes # 0.8 K/mcL (0.0-1.3); Monocytes % 10.5 %; Neutrophils # 5.9 K/mcL (1.6-8.9); Platelet Count 136 K/mcL (140-400); Red Blood Count 2.46 M/mcL (3.82-4.97); Red Cell Distribution Width 15.9 % (11.5-14.5); Segmented Neutrophils % 73.9 %
[2017-06-28 06:12] LABS: INR 1.1; Prothrombin Time 12.2 Seconds (9.4-12.1)
[2017-06-28 06:14] LABS: Activated Partial Thrombo Time 32.9 Seconds (26.0-36.0)
[2017-06-28 06:27] LABS: BUN/Creatinine Ratio 48 (6-26); Carbon Dioxide 26 mEq/L (19-29); Chloride 102 mEq/L (98-109); Glucose 88 mg/dL (70-99); Osmolality,Calculated 286 (280-300); Potassium 4.6 mEq/L (3.5-4.5); Sodium 134 mEq/L (136-145); eGFR For African Americans > 60 (> 60); eGFR For Non-African Americans > 60 (> 60)
[2017-06-28 06:40] LABS: Blood Urea Nitrogen 36 mg/dL (7-20); Calcium 8.1 mg/dL (8.6-10.8)
--- NOTE | 2017-06-28 07:55 | Gastroenterology Consult Note ---
<Sarah Guillory - Last Filed: 06/28/17 11:18> Date of Encounter: 06/28/17 Time of Encounter: 10:50 - Assessment and plan (1) DVT (deep venous thrombosis) Current Visit: Yes Status: Acute Assessment and plan: on low dose heparin gtt Qualifiers: DVT location: lower extremity Affected thrombotic vein of extremity: tibial Chronicity: acute Laterality: left Qualified Code(s): I82.442 - Acute embolism and thrombosis of left tibial vein (2) Melena Current Visit: Yes Status: Acute Assessment and plan: dark stools following extended period of constipation. Patient has anemia, however, she is undergoing chemo for metastatic lung cancer. Patient prefers to wait and see if dark stools continue or if hemoglobin continues to fall substantially before consenting to any endoscopic intervention. (3) Lung cancer Current Visit: No Status: Acute Assessment and plan: currently undergoing chemo, metes. Pleurx catheter in place. Qualifiers: Laterality: unspecified laterality Qualified Code(s): C34.90 - Malignant neoplasm of unspecified part of unspecified bronchus or lung (4) Pleural effusion Current Visit: No Status: Chronic - Time Spent With Patient Total time spent is greater than 50% in coordination of care (as documented) at patient's floor/unit and/or counseling patient: less than 15 minutes GI History of Present Illness - Data of Consult Patient: new to practice Consult date: 06/28/17 Requesting Physician: Benji Henry MD - Consult Narrative Reason for consult: anemia, + occult stool History of present illness: Ms. Odonnell is a 76 year old female PMH of left-sided breast cancer that has been in remission and now right-sided lung cancer with metes on chemo who presented to the ED with a 2 day history of dark tarry stools. She states that she was constipated for about one week and started daily fiber supp. She states that this relieved her constipation. She states she did have one hard stool but has had normal stools since. She states that yesterday she started having a dark tarry stool. She denies any bright red blood per rectum. She denies any nausea or vomiting. On rectal exam she does have a dark stool. She does have an external hemorrhoid that does not appear to be bleeding at this time. She also has some skin breakdown on her buttocks. This does not appear to be infected. Hgb 7.2 with 2 units PRBC transfused. Patient has a R Pleurx catheter in place, on NSAIDs, recently dx DVT so the patient is also on a low dose heparin gtt currently. CT abd/pelvis without contrast at time of presentation showed a loculated R pleural effusion decreased in size, metes to liver and bone with the possibility of metes within both lungs and lymph, diverticulosis. Patient relates the following history just prior to admission: had been constipated for several days, took several OTC remedies with no improvement, added fiber and subsequently moved her bowel, which was very dark in color. She reported a total of 2 days of dark/black stools, she has not had a bowel movement since reaching the floor. Hx of constipation for years. Denies abd pain, BRBPR, cramping. Admits one day increase in acid reflux symptoms prior to moving her bowels, relates this to her constipation. Some abd pain noted just prior to BM, but since resolved. Due to the nature of patient's other health problems, she would like to wait and see what happens and if the bleeding continues or her hgb does not stabilize realizes that at that time we would recommend strongly both EGD and Cscope evaluations. Colonoscopy: 2010 - - diverticulosis, fixed sigmoid colon EGD: None Past Med Surg Social Fam HX - Past Medical History Medical history: cancer, hyperlipidemia, hypertension, other Psychiatric history: no psych history - Past Surgical History Surgical History: breast surgery, hysterectomy - Social History Smoking Status: Former smoker Smokeless Tobacco Status: No Alcohol use: none, occasionally Drug use: none - Family History Mother Living Status: Hx Family Cardiac Disorders: Yes Hx Family Endocrine Disorder: Yes - Gastrointestinal NSAID use: yes Anticoagulation Use: heparin gtt Number of BM Per Day: q3-4 days Gastrointestinal: Present: abdominal pain, constipation, heartburn, melena - Constitutional Constitutional: as per HPI - EENT Eyes: as per HPI Ears: Present: as per HPI Nose, mouth and throat: Present: as per HPI - Cardiovascular Cardiovascular ROS: Present: as per HPI - Respiratory Respiratory IM: Present: as per HPI - Neurological ROS Neurological GI: Present: as per HPI - Hematologic/Lymphatic Hematologic/Lymphatic pediatric: Present: as per HPI - Musculoskeletal Musculoskeletal ROS GI: Present: as per HPI - Integumentary Integumentary GI: Present: as per HPI - Psychiatric ROS Psychiatric GI: Present: as per HPI - Endocrine Endocrine IM: Present: as per HPI - Constitutional Vitals: Temp Pulse Resp BP Pulse Ox 97.6 F 86 18 122/72 96 06/28/17 07:15 06/28/17 07:15 06/28/17 07:15 06/28/17 07:15 06/28/17 07:01 General appearance: Present: cooperative, A&O X 3, no acute distress, answers questions appropriately - Head Head exam: Present: atraumatic, normocephalic - Eye Eye exam: Present: normal appearance, sclera anicteric - ENT ENT exam: Present: mucous membranes moist - Neck Neck exam general surgery: Present: normal inspection, trachea midline - Respiratory Respiratory exam: Present: decreased breath sounds, CTAB - Cardiovascular Cardiovascular exam: Present: RRR, +S1, +S2 - GI/Abdominal GI/Abdominal exam: Present: normal bowel sounds, soft, no peritoneal signs - Rectal Rectal exam: Present: deferred - Extremities Exam Extremities exam: Present: warm - Neurological Exam Neurological exam: Present: no focal deficits - Psychiatric Psychiatric exam: Present: normal affect, normal mood - Skin Skin exam: Present: dry, intact, normal color, warm Results - Labs CBC & Chem 7: 06/28/17 04:33 06/28/17 04:33 Labs: Last Result Calcium 8.1 mg/dL (8.6-10.8) L D 06/28/17 04:33 Stool Occult Blood Positive (Negative) A 06/27/17 15:30 Entire Visit Hgb 7.2 g/dL (11.5-15.4) L 06/28/17 04:33 Hct 21.4 % (35.3-44.9) L 06/28/17 04:33 PT 12.2 Seconds (9.4-12.1) H 06/28/17 04:33 - ABG ABG results: PT/INR, D-dimer PT 12.2 Seconds (9.4-12.1) H 06/28/17 04:33 Consult Discharge Plan - Plan Referrals: Juloi Cesar Floyd MD [Primary Care Provider] - <Vaughn Solares - Last Filed: 06/28/17 16:41> Date of Encounter: 06/28/17 Time of Encounter: 14:00 - Time Spent With Patient Total time spent is greater than 50% in coordination of care (as documented) at patient's floor/unit and/or counseling patient: GI History of Present Illness - Data of Consult Requesting Physician: Benji Henry MD - Consult Narrative History of present illness: Ms. Odonnell is a 76 year old female - Constitutional Vitals: Temp Pulse Resp BP Pulse Ox 98.0 F 92 20 123/61 98 06/28/17 16:20 06/28/17 16:20 06/28/17 16:20 06/28/17 16:20 06/28/17 16:20 Results - Labs CBC & Chem 7: 06/28/17 11:50 06/28/17 04:33 Labs: Last Result Calcium 8.1 mg/dL (8.6-10.8) L D 06/28/17 04:33 Stool Occult Blood Positive (Negative) A 06/27/17 15:30 Entire Visit Hgb 8.5 g/dL (11.5-15.4) L 06/28/17 11:50 Hct 25.3 % (35.3-44.9) L 06/28/17 11:50 PT 12.2 Seconds (9.4-12.1) H 06/28/17 04:33 - ABG ABG results: PT/INR, D-dimer PT 12.2 Seconds (9.4-12.1) H 06/28/17 04:33 - Attending Attestation I examined this patient and my medical decision-making was reviewed with the Resident Physician. I agree with the documented findings, disposition and treatment plan as described except to the extent set forth below. Patient with a history metastatic breast cancer now with anemia and melena. Recommendation: EGD to rule out upper GI causes for melena and if EGD negative then we will need colonoscopy as patient has a recent DVT and she will require chronic anticoagulation
--- NOTE | 2017-06-28 08:00 | Venous Imaging Report ---
LE Venous Duplex Patient Name:Meghan Odonnell Order Number:[id number] Procedure Date:06/27/2017 Date:2Age:76 yrs Gender:Female Location:[facility] ED Room #: 5 Senior Stack Engineer:Zachery Thomas Referring MD:Haylie Melara DO adjunct art history instructor:Julio Cesar Floyd MD Reading MD:Shahriar Gunn MD , FACS Primary Indications:Knots on posterior calf Secondary Indications: Impressions: Lower extremity abnormal deep exam: left peroneal vein demonstrates acute thrombosis. Lower extremity abnormal superficial exam: left calf varicose vein demonstrates acute thrombosis. Right lower extremity: normal contralateral exam. Recommendations: Critical findings reported to Nayeli Kelly RN ER in person at 6:00:44 pm on 06/27/2017 by Zachery Thomas. Findings Venous Duplex Results: Left: There is a thrombus seen in the left peroneal. There is a thrombus seen in the left varicose vein left calf. Prior Study: No prior study available for comparison. Lower Extremity Venous Duplex Side Vein Compress Spontaneous Flow Augment Diameter (cm) Depth (cm) Left Distal Iliac Normal Yes Phasic Yes Left Common Femoral Normal Yes Phasic Yes Left Superficial Femoral Normal Yes Phasic Yes Left Popliteal Normal yes Phasic yes Left Posterior Tibial Normal Yes Phasic Yes Left Peroneal None no Absent no Left Saphenofemoral Junction Normal Yes Phasic Yes Left Great Saphenous Normal Yes Phasic Yes Left Lesser Saphenous Normal Yes Phasic Yes Right Common Femoral Normal Yes Phasic Yes Left Varicose Vein left calf None no Absent no Updated by Shahriar Gunn MD, FACS on 06/28/2017 7:55:24 AM Shahriar Gunn MD electronically signed on 06/28/2017 7:55:38 AM with status of Final
[2017-06-28] MEDS: Folic Acid 1 MG TABLET PO SCH (08:19)
[2017-06-28] MEDS: valACYclovir 500 MG TABLET PO SCH (08:19)
[2017-06-28] MEDS ORDERED: Aspirin Enteric Coated 81 MG Tablet PO SCH (09:00)
[2017-06-28] MEDS ORDERED: Calcium 600 + Vit D PO SCH (09:00)
[2017-06-28 12:10] LABS: Hematocrit 25.3 % (35.3-44.9); Hemoglobin 8.5 g/dL (11.5-15.4)
--- NOTE | 2017-06-28 12:45 | Oncology Inp Consult Note ---
Date of Encounter: 06/28/17 Time of Encounter: 12:31 Assessment and Plan (1) Metastatic primary lung cancer Status: Chronic Assessment and plan: Patient is currently actively receiving treatment for her metastatic lung adenocarcinoma (PD-L1 positive). She is currently on C2 D15 of carbo/alimta and C1/D15 of Ketruda. Hopefully she will be discharged home prior to being due for her next cycle. she will need to follow up with her primary oncologist shortly after discharge for a clinical assessment prior to being cleared for cycle 3. Qualifiers: Laterality: right Qualified Code(s): C34.91 - Malignant neoplasm of unspecified part of right bronchus or lung (2) Melena Status: Acute Assessment and plan: I suspect that there is ongoing bleeding in view that her red cell counts failed to increase after receiving 2 PRBC. As per our discussion she would be agreeable to have further work up ( with EGD +- colonoscopy). In view of the uncertainty of the source of bleeding and her clinical picture suggestive of ongoing bleeding, I would recommend to discontinue anticoagulation and start intermittent leg compression device. - In addition, I would recommend serial lower extremities US, starting today. If her lower extremities doppler US revealed progressing DVT, please call IR to request placement of IVC filter. If Doppler US shows stable peronneal DVT, I would continue monitoring with physical exam and serial doppler extremities US ( at least until we are able to start some sort of anticoagulation and she is more ambulatory. - Continue monitoring CBC closely. (3) DVT (deep venous thrombosis) Status: Acute Assessment and plan: As described above, in view that her DVT is affecting a small-medium size vein, I would recommend to discontinue anticoagulation, perform serial doppler US of the lower extremities, and consider an IVC filter if there is progression of her DVT. - Start intermittent leg compression device. Qualifiers: DVT location: lower extremity Affected thrombotic vein of extremity: tibial Chronicity: acute Laterality: left Qualified Code(s): I82.442 - Acute embolism and thrombosis of left tibial vein - Data of Consult Requesting Physician: Benji Henry MD Primary Care Provider: Julio Cesar Floyd - Consult Narrative Reason for consult: management of acute DVT in the setting of acute GIB History of present illness: Ms. Odonnell is a 76 year old female with history ER/HI, Her2 negative breast cancer ( on adjuvant hormonal therapy) and recently diagnosed of PD-L1 positive ( 50%) lung adenocarcinoma actively being treated with palliative therapy, C2 D15 of carbo/alimta and C1/D15 of Ketruda, admitted after being sent from the cancer center due to hypotension, dark stools, acute anemia and calf tenderness. She was diagnosed in the ED with an acute DVT ( involving the peronneal vein) and started on heparin drip ( low dose). Since admission she has received 2 PRBC but her hemoglobin values have not improved as expected. She was seen by GI who recommended an EGD +- Colonoscopy, but patient decided to hold off in those procedures at the time of the visit. Hematology/Oncology consult requested for management of acute thrombosis in the settings of acute GIB. Ms. Odonnell reports that she noticed calf tenderness approximately 3-4 days ago. There is not history of prior VTE. She denies associated CP, SOB. She is being treated for her malignant pleural effusions with a pleurx cath. She reports that for the last couple of days she has noticed dark stools. She was taking ibuprofen in an empty stomach, but denies any significant abdominal complain. She was accompanied by her daughter during the visit. Since started on chemotherapy, she has been hospitalized twice ( including this one). The first hospitalization was due to PNA and recurrent pleural effusion. She is not on chronic steroids, but reports being taken dexamethasone 10 mg daily for the first 3 days following chemotherapy. At the time of the visit she denies chest pain, shortness of breath, nausea. She is tolerating liquid diet. Past Med Surg Social Fam HX - Past Medical History Medical history: cancer, hyperlipidemia, hypertension, other Psychiatric history: no psych history - Past Surgical History Surgical History: breast surgery, hysterectomy - Social History Smoking Status: Former smoker Smokeless Tobacco Status: No Alcohol use: none, occasionally Drug use: none - Family History Mother Living Status: Hx Family Cardiac Disorders: Yes Hx Family Endocrine Disorder: Yes Medications and Allergies Aspirin [Lo-Dose Aspirin EC] 81 mg PO DAILY 08/05/16 [History] Calcium Carbonate/Vitamin D3 [Calcium 600 + Vit D Tablet] 1 tab PO BID 08/05/16 [History] Fish Oil/Dha/Epa [Fish Oil 1,200 mg Fish Oil] 1 cap PO DAILY 08/05/16 [History] Multivitamin [Multivitamins] 1 cap PO DAILY 08/05/16 [History] Ramipril [Altace] 10 mg PO BID 08/05/16 [History] amLODIPine [Norvasc] 5 mg PO DAILY 08/05/16 [History] Anastrozole [Arimidex] 1 mg PO DAILY #90 tablet 03/18/17 [Rx] Folic Acid 1 mg PO DAILY #30 tablet 05/17/17 [Rx] Magic Mouthwash [Magic Mouthwash BLM] 10 ml PO QID PRN #240 ml 05/17/17 [Rx] Prochlorperazine Maleate [Compazine] 10 mg PO Q8HR PRN #90 tablet 05/17/17 [Rx] Ondansetron [Zofran] 4 mg PO Q8HR PRN 06/03/17 [History] Metoprolol [Lopressor] 25 mg PO BID #60 tablet 06/08/17 [Rx] Furosemide [Lasix] 20 mg PO DAILY #30 tablet 06/14/17 [Rx] valACYclovir [Valtrex] 500 mg PO DAILY #30 tablet 06/14/17 [Rx] Dexamethasone [Decadron] 4 mg PO AD 06/27/17 [History] Simvastatin [Zocor] 20 mg PO HS 06/27/17 [History] Allergies No Known Allergies Allergy (Verified 05/10/17 09:07) Constitutional: Absent: fever(s), lethargy Eyes: Present: as per HPI Cardiovascular: Absent: chest pain, chest pain at rest, chest pain with activity , dyspnea on exertion Additional comments: dizziness Respiratory: Absent: cough, dyspnea, hemoptysis, excessive phlegm production Gastrointestinal: Present: change in stool character, melena. Absent: constipation Genitourinary: Absent: urinary incontinence Neurological: Absent: lack of coordination Psychiatric: Absent: confusion Hematologic/Lymphatic: Present: as per HPI Oncology - Exam - Constitutional Vitals: Temp Pulse Resp BP Pulse Ox 97.9 F 98 18 124/77 98 06/28/17 10:51 06/28/17 10:51 06/28/17 10:51 06/28/17 10:51 06/28/17 10:51 - Head Head exam: Present: normal inspection - Eye Eye exam: Present: PERRL - ENT ENT exam: Present: normal oropharynx - Respiratory Respiratory exam: Present: CTAB - Cardiovascular Cardiovascular exam: Present: RRR - GI/Abdominal GI/Abdominal exam: Present: normal bowel sounds - Extremities Exam Extremities exam: Present: tenderness - Neurological Exam Neurological exam: Present: oriented X3 - Psychiatric Psychiatric exam: Present: normal mood Oncology - Results - Labs Labs: Short CBC 06/27/17 06/28/17 Range/Units 22:02 04:33 WBC 8.0 (4.3-11.1) K/mcL Hgb 7.3 L 7.2 L (11.5-15.4) g/dL Hct 22.3 L 21.4 L (35.3-44.9) % Plt Count 136 L (140-400) K/mcL Neutrophils # 5.9 (1.6-8.9) K/mcL BMP 06/28/17 04:33 Sodium 134 L Potassium 4.6 H Chloride 102 Carbon Dioxide 26 BUN 36 H D Creatinine 0.75 Glucose 88 Calcium 8.1 L D Consult Discharge Plan - Plan Referrals: Julio Cesar Floyd MD [Primary Care Provider] -
--- NOTE | 2017-06-28 14:27 | Internal Med Progress Note ---
<Jeremy Lynn - Last Filed: 06/28/17 19:23> Date of Encounter: 06/28/17 Time of Encounter: 14:22 - Assessment and plan (1) Melena Current Visit: Yes Status: Acute Assessment and plan: Melena for 2 days in the setting of ibuprofen use. Trending H/H: Hb 7.2 s/p 2pRBCs on 06/27/17. Now Hb 8.5 (previously Hb 10.6 on 06/14/17). Continue to monitor. Hold NSAIDs. Tramadol PRN for pain. GI consulted: will plan for EGD in the morning. Able to have regular diet today. Will stop Heparin and monitor DVT. (2) DVT (deep venous thrombosis) Current Visit: Yes Status: Acute Assessment and plan: Venous doppler U/S shows Peroneal DVT. Will stop Heparin and monitor DVT with serial U/S. Qualifiers: DVT location: lower extremity Affected thrombotic vein of extremity: tibial Chronicity: acute Laterality: left Qualified Code(s): I82.442 - Acute embolism and thrombosis of left tibial vein (3) HTN (hypertension) Current Visit: No Status: Chronic Assessment and plan: Patient was hypotensive in ED. Continue to hold antihypertensive meds as patient is normotensive now. Qualifiers: Hypertension type: essential hypertension Qualified Code(s): I10 - Essential (primary) hypertension (4) Metastatic primary lung cancer Current Visit: No Status: Chronic Assessment and plan: Follows with oncology outpatient - 2 prior rounds of chemotherpay. Currently on carbo/alimta and Ketruda. Will follow-up as outpatient for care. Right pluerx cath and Right chest port present. Qualifiers: Laterality: right Qualified Code(s): C34.91 - Malignant neoplasm of unspecified part of right bronchus or lung - Subjective Interval history: Patient is sitting comfortably in bed, in no acute distress. She reports a history of constipation, treated with fiber supplements, that results in dark tarry stools 2 days again. Denies bright red per rectum. She reports that this morning she is doing well with no complaints. No BM since admission. She does mention a bruise on her abdomen that she noticed prior to her dark stools. There is also a small area of skin breakdown and surrounding redness on her left buttock that began prior to her admission after her first outpatient chemotherapy treatment. She also feels her swelling in her left LE has decreased mildly. She denies chest pain, dyspnea, cough, nausea, vomiting, hematemesis, diarrhea, or problems with urination. - Constitutional Vitals: Temp Pulse Resp BP Pulse Ox 97.9 F 98 18 124/77 98 06/28/17 10:51 06/28/17 10:51 06/28/17 10:51 06/28/17 10:51 06/28/17 10:51 General appearance: Present: A&O X 3, no acute distress, answers questions appropriately - Head Head exam: Present: atraumatic, normocephalic - Eye Eye exam: Present: sclera anicteric - ENT ENT exam: Present: mucous membranes moist - Respiratory Respiratory exam: Present: CTAB. Absent: rales, respiratory distress, rhonchi, wheezes - Cardiovascular Cardiovascular exam: Present: RRR, +S1, +S2. Absent: diastolic murmur, systolic murmur - GI/Abdominal GI/Abdominal exam: Present: normal bowel sounds, soft. Absent: distended, firm , guarding, rigid - Extremities Exam Extremities exam: Present: warm, radial pulses palpable and symetrical. Absent : calf tenderness, joint swelling Additional comments: Mild non-pitting edema of Left LE. No edema of Right LE. - Neurological Exam Neurological exam: Present: CN II-XII intact, oriented X3, no focal deficits - Skin Skin exam: Present: dry, warm. Absent: rash Additional comments: Circular 2 cm abrasion of upper left sacral area with surrounding erythema. Small ecchymosis of abdomen to right of umbilical cord. Internal Medicine: Result - Labs CBC & Chem 7: 06/28/17 11:50 06/28/17 04:33 Labs: Short CBC 06/27/17 06/28/17 06/28/17 Range/Units 22:02 04:33 11:50 WBC 8.0 (4.3-11.1) K/mcL Hgb 7.3 L 7.2 L 8.5 L (11.5-15.4) g/dL Hct 22.3 L 21.4 L 25.3 L (35.3-44.9) % Plt Count 136 L (140-400) K/mcL Neutrophils # 5.9 (1.6-8.9) K/mcL BMP 06/28/17 04:33 Sodium 134 L Potassium 4.6 H Chloride 102 Carbon Dioxide 26 BUN 36 H D Creatinine 0.75 Glucose 88 Calcium 8.1 L D - ABG Interpretation ABG results: PT/INR, D-dimer PT 12.2 Seconds (9.4-12.1) H 06/28/17 04:33 - VTE Reasons for not Prescribing Prophylaxis: Not indicated-Anticoagulated or INR therapeutic Consult Discharge Plan - Plan Referrals: Julio Cesar Floyd MD [Primary Care Provider] - <Simón Alarcon - Last Filed: 06/28/17 23:44> Date of Encounter: 06/28/17 - Constitutional Vitals: Temp Pulse Resp BP Pulse Ox 98.4 F 109 18 140/79 95 06/28/17 23:26 06/28/17 23:26 06/28/17 23:26 06/28/17 23:26 06/28/17 23:26 Internal Medicine: Result - Labs CBC & Chem 7: 06/28/17 23:17 06/28/17 04:33 Labs: Short CBC 06/28/17 06/28/17 06/28/17 Range/Units 04:33 11:50 23:17 WBC 8.0 (4.3-11.1) K/mcL Hgb 7.2 L 8.5 L 7.8 L (11.5-15.4) g/dL Hct 21.4 L 25.3 L 23.6 L (35.3-44.9) % Plt Count 136 L (140-400) K/mcL Neutrophils # 5.9 (1.6-8.9) K/mcL [facility] 06/28/17 04:33 Sodium 134 L Potassium 4.6 H Chloride 102 Carbon Dioxide 26 BUN 36 H D Creatinine 0.75 Glucose 88 Calcium 8.1 L D - ABG Interpretation ABG results: PT/INR, D-dimer PT 12.2 Seconds (9.4-12.1) H 06/28/17 04:33 - Attending Attestation I have seen and examined with the Resident.. She appears very stable; in light of GI bleeding and DVT below the knee, will stop the Heparin. Hope to DC tomorrow.. she has had no further bleeding.
--- NOTE | 2017-06-28 15:24 | Electrocardiograph Report ---
[place] [address] Test Date: 2017-06-27 Pat Name: Meghan Odonnell Department: 104 Room: 2A Gender: F Chemical Engineer: : [id number] Requested By: Araceli See Order Number: [id number] Reading MD: Xiao Ogden Measurements Intervals [place] Rate: 92 P: 21 AK: 135 QRS: -35 QRSD: 89 T: 33 QT: 327 QTc: 377 Interpretive Statements SINUS RHYTHM MARKED LEFT AXIS DEVIATION PATTERN CONSISTENT WITH PULMONARY DISEASE Electronically Signed On 06-28-2017 15:22:55 EDT by Xiao Ogden
[2017-06-28] MEDS: Ringers Solution, Lactated 1,000 ML IVC SCH (16:02)
[2017-06-28] MEDS: Pantoprazole 40 MG VIAL IVP SCH (18:22)
[2017-06-28 23:22] LABS: Hematocrit 23.6 % (35.3-44.9); Hemoglobin 7.8 g/dL (11.5-15.4)
[2017-06-29] MEDS: Pantoprazole 40 MG VIAL IVP SCH ×2 (04:58→17:32)
[2017-06-29] MEDS: traMADol 50 MG TABLET PO PRN ×2 (04:58→17:45)
[2017-06-29] MEDS: Folic Acid 1 MG TABLET PO SCH (08:45)
[2017-06-29] MEDS: valACYclovir 500 MG TABLET PO SCH (08:45)
[2017-06-29] MEDS ORDERED: Cholecalciferol (D-3) 1,000 UNIT TABLET PO SCH (09:00)
--- NOTE | 2017-06-29 09:28 | Oncology Inp Progress Note ---
Date of Encounter: 06/29/17 Time of Encounter: 09:25 (1) Metastatic primary lung cancer Current Visit: No Status: Chronic Assessment and plan: Patient is currently actively receiving treatment for her metastatic lung adenocarcinoma (PD-L1 positive). She is currently on C2 D16 of carbo/alimta and C1/D16 of Ketruda. Hopefully she will be discharged home prior to being due for her next cycle. she will need to follow up with her primary oncologist shortly after discharge for a clinical assessment prior to being cleared for cycle 3. Qualifiers: Laterality: right Qualified Code(s): C34.91 - Malignant neoplasm of unspecified part of right bronchus or lung (2) Melena Current Visit: Yes Status: Acute Assessment and plan: - Probably upper GIB. GI planning EGD today. - Follow up CBC daily, transfuse to keep HCT above 21 percent or Hb above 7 g/ dl. (3) DVT (deep venous thrombosis) Current Visit: Yes Status: Acute Assessment and plan: - If red cell counts remain stable and EGD does not show evidence of active bleeding, consider to start prophylactic heparin 5000 units SQ BID. May titrate up to 5000 every 8 hours in 24 hours if there is not evidence of recurrence bleeding. - I expect that by the time of discharge, she should be anticoagulated either with Lovenox, or coumadin. - If follow up doppler US reveals worsening DVT, IVC filter should be considered. - Consider intermittent leg compression device while on bed. Qualifiers: DVT location: lower extremity Affected thrombotic vein of extremity: tibial Chronicity: acute Laterality: left Qualified Code(s): I82.442 - Acute embolism and thrombosis of left tibial vein Oncology: Subj Interval history: Reports not more episodes of melena since admission. passing gasses. Denies abdominal pain. Still left calf tenderness. - Constitutional Vitals: Vital Signs Temp Pulse Resp BP Pulse Ox 06/29/17 07:21 97.7 F 105 16 148/78 97 06/29/17 04:19 98.5 F 107 18 132/75 98 06/28/17 23:26 98.4 F 109 18 140/79 95 06/28/17 19:12 98.3 F 100 16 136/78 96 06/28/17 16:20 98.0 F 92 20 123/61 98 06/28/17 10:51 97.9 F 98 18 124/77 98 Intake and Output 06/28/17 06/29/17 06/29/17 23:59 07:59 15:59 Intake Total 300 / 300 0 / 0 Balance 300 / 300 0 / 0 Intake: IV Fluids 300 / 300 Heparin 25,000 UNIT/500 200 / 200 ML D5W 25,000 unit In 500 ml @ 12 UNIT/KG/HR 18. 207 mls/hr IVC .Q24H HAKAN Rx#:[id number] Protonix 40 MG In 0.9 % 100 / 100 Sodium Chloride (Mini-Bag +) 100 ML @ 20 mls/hr IVC .Q5H HAKAN Rx#: [id number] Oral 0 / 0 Other: Meal Breakfast Percent of Meal Consumed 0% - Neck Neck exam: Present: normal inspection - Respiratory Respiratory exam: Present: CTAB - Cardiovascular Cardiovascular exam: Present: RRR - GI/Abdominal GI/Abdominal exam: Present: normal bowel sounds. Absent: distended - Extremities Exam Extremities exam: Present: tenderness Oncology: Obj Data - Labs CBC & Chem 7: 06/28/17 23:17 06/28/17 04:33 Labs: Laboratory Results - last 24 hr 06/28/17 06/28/17 06/28/17 11:50 13:33 23:17 Hgb 8.5 L 7.8 L Hct 25.3 L 23.6 L APTT 28.5 06/28/17 23:17 Hgb Hct APTT 26.6 - ABG Interpretation ABG results: PT/INR, D-dimer PT 12.2 Seconds (9.4-12.1) H 06/28/17 04:33 Consult Discharge Plan - Plan Referrals: Julio Cesar Floyd MD [Primary Care Provider] -
--- NOTE | 2017-06-29 10:09 | Internal Med Progress Note ---
Date of Encounter: 06/29/17 Time of Encounter: 10:07 - Assessment and plan (1) Melena Status: Acute Assessment and plan: Melena for 2 days in the setting of ibuprofen use. Trending H/H: Hb 7.2 s/p 2pRBCs on 06/27/17. Now Hb 7.6 (previously Hb 10.6 on 06/14/17). Hold NSAIDs. Tramadol PRN for pain. GI consulted: EGD showed small healing ulcers. No active bleed. Ok to discharge. (2) DVT (deep venous thrombosis) Status: Acute Assessment and plan: Venous doppler U/S shows Peroneal DVT. Off Heparin and monitor DVT with serial U /S. U/S ordered 06/29, results pending. Will notify patient with results and appropriate treatment. Qualifiers: DVT location: lower extremity Affected thrombotic vein of extremity: tibial Chronicity: acute Laterality: left Qualified Code(s): I82.442 - Acute embolism and thrombosis of left tibial vein (3) HTN (hypertension) Status: Chronic Assessment and plan: Patient was hypotensive in ED and antihypertensives were held. BP 148/78 now. Will restart home MICHELLE inhibitor. Qualifiers: Hypertension type: essential hypertension Qualified Code(s): I10 - Essential (primary) hypertension (4) Metastatic primary lung cancer Status: Chronic Assessment and plan: Follows with oncology outpatient - 2 prior rounds of chemotherpay. Currently on carbo/alimta and Ketruda. Will follow-up as outpatient for care. Right pluerx cath and Right chest port present. Qualifiers: Laterality: right Qualified Code(s): C34.91 - Malignant neoplasm of unspecified part of right bronchus or lung - Subjective Interval history: Patient is sitting comfortably in bed, in no acute distress. Reports feeling of increased swelling in left LE. Denies pain in left LE. Awaiting EGD later today. She denies chest pain, dyspnea, cough, nausea, vomiting, hematemesis, diarrhea, or problems with urination. - Constitutional Vitals: Temp Pulse Resp BP Pulse Ox 97.7 F 105 16 148/78 97 06/29/17 07:21 06/29/17 07:21 06/29/17 07:21 06/29/17 07:21 06/29/17 07:21 General appearance: Present: A&O X 3, no acute distress, answers questions appropriately - Head Head exam: Present: atraumatic, normocephalic - Eye Eye exam: Present: sclera anicteric - ENT ENT exam: Present: mucous membranes moist - Respiratory Respiratory exam: Present: CTAB. Absent: rales, rhonchi, wheezes - Cardiovascular Cardiovascular exam: Present: RRR, +S1, +S2. Absent: diastolic murmur, systolic murmur - GI/Abdominal GI/Abdominal exam: Present: normal bowel sounds, soft. Absent: distended, firm , guarding - Extremities Exam Extremities exam: Present: warm. Absent: calf tenderness, joint swelling Additional comments: Mild non-pitting edema of Left LE. No edema of Right LE. - Neurological Exam Neurological exam: Present: alert, CN II-XII intact, oriented X3, no focal deficits - Skin Skin exam: Present: dry, normal color, warm. Absent: rash Additional comments: 2 cm abrasion on left upper buttock unchanged Internal Medicine: Result - Labs CBC & Chem 7: 06/28/17 23:17 06/28/17 04:33 Labs: Short CBC 06/28/17 06/28/17 Range/Units 11:50 23:17 Hgb 8.5 L 7.8 L (11.5-15.4) g/dL Hct 25.3 L 23.6 L (35.3-44.9) % - ABG Interpretation ABG results: PT/INR, D-dimer PT 12.2 Seconds (9.4-12.1) H 06/28/17 04:33 - VTE Reasons for not Prescribing Prophylaxis: Not indicated-Anticoagulated or INR therapeutic Consult Discharge Plan - Plan Instructions: Gastrointestinal Bleeding (GEN), Lung Cancer (GEN) Additional Instructions: Will contact you with the final results of Left Leg ultrasound. We will prescribe medication as necessary. Please take an iron supplement everyday. Return for symptoms of worsening shortness of breath. Referrals: Julio Cesar Floyd MD [Primary Care Provider] - 07/11/17 4:00 pm (Please follow up as schedule... ) Prescriptions: Omeprazole [PriLOSEC] 20 mg PO DAILY #30 cap
[2017-06-29] MEDS ORDERED: Lisinopril 20 MG TABLET PO SCH (11:30)
[2017-06-29] MEDS ORDERED: 0.9 % Sodium Chloride 500 ML IVC SCH (13:45)
--- NOTE | 2017-06-29 13:59 | Anesthesia Evaluation PreOp ---
Date of Encounter: 06/29/17 Time of Encounter: 13:57 - Past History Planned Operation: EGD Cardiac History: HTN (maintained on Norvasc, Metoprolol, Lasix, Ramipril), Hyperlipidemia (maintained on Zocor) Pulmonary History: Denies Any Significant HX REGULATOR INSPECTOR History: Denies Any Significant HX Other Medical History: Denies Any Significant HX, Other (Metatstatic breast Ca s /p chemo, maintained on Arimidex) Anesthesia History: No Prior Anesthetic Complications, Past Anesthesia ( Mastectomy, Hysterectomy) Alcohol Use: none, occasionally Drug use: none Medications and Allergies Aspirin [Lo-Dose Aspirin EC] 81 mg PO DAILY 08/05/16 [History] Calcium Carbonate/Vitamin D3 [Calcium 600 + Vit D Tablet] 1 tab PO BID 08/05/16 [History] Fish Oil/Dha/Epa [Fish Oil 1,200 mg Fish Oil] 1 cap PO DAILY 08/05/16 [History] Multivitamin [Multivitamins] 1 cap PO DAILY 08/05/16 [History] Ramipril [Altace] 10 mg PO BID 08/05/16 [History] amLODIPine [Norvasc] 5 mg PO DAILY 08/05/16 [History] Anastrozole [Arimidex] 1 mg PO DAILY #90 tablet 03/18/17 [Rx] Folic Acid 1 mg PO DAILY #30 tablet 05/17/17 [Rx] Magic Mouthwash [Magic Mouthwash BLM] 10 ml PO QID PRN #240 ml 05/17/17 [Rx] Prochlorperazine Maleate [Compazine] 10 mg PO Q8HR PRN #90 tablet 05/17/17 [Rx] Ondansetron [Zofran] 4 mg PO Q8HR PRN 06/03/17 [History] Metoprolol [Lopressor] 25 mg PO BID #60 tablet 06/08/17 [Rx] Furosemide [Lasix] 20 mg PO DAILY #30 tablet 06/14/17 [Rx] valACYclovir [Valtrex] 500 mg PO DAILY #30 tablet 06/14/17 [Rx] Dexamethasone [Decadron] 4 mg PO AD 06/27/17 [History] Simvastatin [Zocor] 20 mg PO HS 06/27/17 [History] Allergies No Known Allergies Allergy (Verified 05/10/17 09:07) - Meds/Allergy Pre-op Review Medications Reviewed: Yes Allergies Reviewed: Yes Beta Blockers on Current Med List: Yes (Metoprolol) If Beta Blockers taken, Date/Time (Last Dose taken): off x "several days" for Low BP requiring transfusion Anesthesia Results - Labs 06/28/17 23:17 06/28/17 04:33 Anesthesia Exam O2 Sat O2 Sat by Pulse Oximetry 95 O2 Sat by Pulse Oximetry 98 O2 Sat by Pulse Oximetry 97 O2 Sat by Pulse Oximetry 98 O2 Sat by Pulse Oximetry 95 O2 Sat by Pulse Oximetry 96 O2 Sat by Pulse Oximetry 98 Vital Signs Temp Pulse Resp BP Pulse Ox 97.7 F 104 16 95/53 97 06/27/17 14:27 06/27/17 14:27 06/27/17 14:27 06/27/17 14:27 06/27/17 14:27 Height: 5'6" Weight: 167# BMI = 27 NPO (# of Hours): MNOC - HEENT Pupil (Motor): Pupils equal, EOMI Mallampati: II Teeth: Edentulous Oral Opening: Greater than 3 - REGULATOR INSPECTOR LOC: Oriented REGULATOR INSPECTOR Motor: Normal RUE, Normal LUE, Normal RLE, Normal LLE, Normal Face REGULATOR INSPECTOR Sensory: Normal: RUE, LUE, RLE, LLE, Face - Cardiac Rhythm: Regular Murmur: None - Pulmonary Breath Sounds: bilateral Clear Anesthesia Assess/Plan ASA Score: 3 (Metastatic Breast Ca, HTN, Chol) Modified Gaurav Scale for Level of Consciousness: Cooperative, oriented, and tranquil Anesthetic Plan: MAC Monitoring Plan: Standard Monitors Recovery Plan: PACU Anes Supervising Prov Stmt: PT seen/evaluated, R&B discussed, questions answered and consent obtained - MD Molly
[2017-06-29 15:36] VITALS: BP 125/73
--- NOTE | 2017-06-29 17:33 | Discharge Summary ---
Date of Encounter: 06/29/17 Time of Encounter: 17:30 - Discharge Diagnosis (1) Melena Priority: Primary Status: Acute (2) DVT (deep venous thrombosis) Priority: Secondary Status: Acute Qualifiers: DVT location: lower extremity Affected thrombotic vein of extremity: tibial Chronicity: acute Laterality: left Qualified Code(s): I82.442 - Acute embolism and thrombosis of left tibial vein (3) HTN (hypertension) Priority: Secondary Status: Chronic Qualifiers: Hypertension type: essential hypertension Qualified Code(s): I10 - Essential (primary) hypertension (4) Metastatic primary lung cancer Priority: Secondary Status: Chronic Qualifiers: Laterality: right Qualified Code(s): C34.91 - Malignant neoplasm of unspecified part of right bronchus or lung - Discharge Medications Prescriptions: Omeprazole [PriLOSEC] 20 mg PO DAILY #30 cap Home Medications: Calcium Carbonate/Vitamin D3 [Calcium 600 + Vit D Tablet] 1 tab PO BID 08/05/16 [History] Fish Oil/Dha/Epa [Fish Oil 1,200 mg Fish Oil] 1 cap PO DAILY 08/05/16 [History] Multivitamin [Multivitamins] 1 cap PO DAILY 08/05/16 [History] Ramipril [Altace] 10 mg PO BID 08/05/16 [History] amLODIPine [Norvasc] 5 mg PO DAILY 08/05/16 [History] Anastrozole [Arimidex] 1 mg PO DAILY #90 tablet 03/18/17 [Rx] Folic Acid 1 mg PO DAILY #30 tablet 05/17/17 [Rx] Magic Mouthwash [Magic Mouthwash BLM] 10 ml PO QID PRN #240 ml 05/17/17 [Rx] Prochlorperazine Maleate [Compazine] 10 mg PO Q8HR PRN #90 tablet 05/17/17 [Rx] Ondansetron [Zofran] 4 mg PO Q8HR PRN 06/03/17 [History] Metoprolol [Lopressor] 25 mg PO BID #60 tablet 06/08/17 [Rx] Furosemide [Lasix] 20 mg PO DAILY #30 tablet 06/14/17 [Rx] valACYclovir [Valtrex] 500 mg PO DAILY #30 tablet 06/14/17 [Rx] Dexamethasone [Decadron] 4 mg PO AD 06/27/17 [History] Simvastatin [Zocor] 20 mg PO HS 06/27/17 [History] Omeprazole [PriLOSEC] 20 mg PO DAILY #30 cap 06/29/17 [Rx] Allergies/Adverse Reactions: Allergies No Known Allergies Allergy (Verified 05/10/17 09:07) Procedures/tests Complete & Pending: Procedures Performed prior 72 hours Category Date Time Status ECG 12 lead ECG [ECG] Routine Y 06/28/17 07:00 Stop Req Venous Doppler [EV venous imaging LE LT] Stat Y 06/29/17 06:53 Completed Date of admission: 06/27/17 21:19 Primary care physician: Julio Cesar Floyd Consults: 06/27/17 21:23 Consult to Gastroenterology [CONS] Routine Consulting Provider: Gastroenterology Malika Reason for Consult: GIB, melena Call Completed: No Consult to Oncology [CONS] Routine Consulting Provider: [facility]cology [facility] Reason for Consult: DVT, GI B Call Completed: No 06/27/17 21:26 Consult to Cardiac Rehabilitation-Phase1 [CONS] Routine Comment: Reason for Consult: AMI Call Completed: Yes Consult to Nurse Navigator [CONS] Routine Comment: Discharging clinician: Jeremy Lynn Anticipated date of discharge: 06/29/17 - Patient Status Disposition: Home, Self-Care Condition: Good Functional capacity at discharge: independent ambulation Overall status at discharge: patient is progressing back to baseline - Discharge Instructions Instructions: Gastrointestinal Bleeding (GEN), Lung Cancer (GEN) Follow Up With: Julio Cesar Floyd MD [Primary Care Provider] - 07/11/17 4:00 pm (Please follow up as schedule... ) Additional Instructions: Will contact you with the final results of Left Leg ultrasound. We will prescribe medication as necessary. Please take an iron supplement everyday. Return for symptoms of worsening shortness of breath. - Diet and Activity Activity: increase activity as tolerated Diet: advance to your usual diet Interval History: Patient is hemodynamically stable. Doing well with no complaints. Denies chest pain, dyspnea, cough, nausea, vomiting, diarrhea, or leg pain. Hospital course: Ms. Odonnell is a 76 year old female admitted with melena and anemia. She received 2 pRBCs upon admission. EGD showed small healing gastric ulcers, with no acute bleed. The presence of left peroneal DVT complicated decision making, so heparin was discontinued and a follow-up LLE ultrasound was ordered to monitor for any change. The results are currently pending. In the context of recent GI bleed, the patient was not discharged on anticoagulation. Patient was informed that she would received a call with the final results of the doppler ultrasound, and need for anticoagulation would be determined at that time. - Time Spent with Patient Total time spent providing and/or coordinating discharge services: - Constitutional Vitals: Temp Pulse Resp BP Pulse Ox 97.9 F 94 18 125/73 97 06/29/17 15:34 06/29/17 15:34 06/29/17 15:34 06/29/17 15:34 06/29/17 15:34 General appearance: Present: A&O X 3, no acute distress, answers questions appropriately - Head Head exam: Present: atraumatic, normocephalic - Eye Eye exam: Present: sclera anicteric - Respiratory Respiratory exam: Present: CTAB. Absent: rales, rhonchi, wheezes - Cardiovascular Cardiovascular exam: Present: RRR, +S1, +S2. Absent: distant heart sounds, systolic murmur - GI/Abdominal GI/Abdominal exam: Present: normal bowel sounds, soft. Absent: distended, rigid , tenderness - Extremities Exam Extremities exam: Present: warm. Absent: calf tenderness, joint swelling Additional comments: mild non-pitting edema of left LE, no edema of right LE - VTE Reasons for not Prescribing Prophylaxis: Not indicated-Anticoagulated or INR therapeutic
[2017-06-29] MEDS ORDERED: *HR* Propofol 200 MG/20 ML VIAL IVP ONE (18:28)
== END 2017-06-29 18:29 | disposition home or self-care (01) | DRG 378 ==
LOC: EMEROO 14:24 → 2ANU 14:24
PROVIDERS: ADMIT Internal Medicine; ATTEND Internal Medicine
PROC: ENDOEBX (2017-06-29 13:00)

== ENCOUNTER 2017-11-08 18:06 | Inpatient (IN) ==
[2017-11-08] MEDS ORDERED: methylPREDNISolone 125 MG/2 ML VIAL IVP ONE (18:16)
[2017-11-08] MEDS ORDERED: Ipratropium/Albuterol Neb 3 ML IH ONE (18:16)
[2017-11-08] MEDS ORDERED: Piperacillin/Tazobactam 3.375 GM in D5% in Water (Mini-Bag+) 100 ML IVPB ONE (18:24)
--- NOTE | 2017-11-08 18:48 | Emergency Department Note ---
Disposition Clinical Impression: Pneumonia Qualifiers: Pneumonia type: due to unspecified organism Laterality: right Lung location: unspecified part of lung Qualified Code(s): J18.9 - Pneumonia, unspecified organism Dyspnea Qualifiers: Dyspnea type: unspecified Qualified Code(s): R06.00 - Dyspnea, unspecified Disposition: Admitted As Inpatient Condition: Serious Referrals: Evan Sánchez MD [Primary Care Provider] - Forms: ED Satisfaction Letter Time of Disposition: 18:51 SOB HPI - General Chief Complaint: ED Shortness of Breath/Dyspnea Stated Complaint: LANNY Time Seen by Provider: 11/08/17 18:15 Source: patient Mode of arrival: ambulatory Limitations: no limitations Nursing Notes Reviewed: Yes Vital Signs Reviewed: Yes - History of Present Illness 76-year-old who comes in with a history of lung cancer with increasing shortness of breath. She was seen by oncology today and actually had a CTA of the chest prior to arrival which did not show PE but did show bilateral pleural effusion and new right-sided pneumonia. Sent in by oncology for admission. Pt Subjective Complaint: shortness of breath, cough Onset (ago): day(s) Context: recent illness (Lung cancer) Severity: moderate Consistency/Duration: constant Improves with: nothing Worsens with: exertion Known history of: other (Lung cancer) Associated symptoms: Reports: cough. Denies: fever Treatment prior to arrival: other (She completed her chemotherapy about 3 weeks ago is on a biologic now) - Related Data Home Medications Medication Instructions Recorded Confirmed Calcium Carbonate/Vitamin D3 1 tab PO BID 08/05/16 11/08/17 [Calcium 600 + Vit D Tablet] Fish Oil/Dha/Epa [Fish Oil 1,200 1 cap PO DAILY 08/05/16 11/08/17 mg Fish Oil] Multivitamin [Multivitamins] 1 cap PO DAILY 08/05/16 11/08/17 Ramipril [Altace] 10 mg PO BID 08/05/16 11/08/17 amLODIPine [Norvasc] 5 mg PO DAILY 08/05/16 11/08/17 Ondansetron [Zofran] 4 mg PO Q8HR PRN 06/03/17 11/08/17 Pantoprazole Sodium [Protonix] 40 mg PO BID 11/08/17 11/08/17 Previous Rx's Medication Instructions Recorded Anastrozole [Arimidex] 1 mg PO DAILY #90 tablet 03/18/17 Prochlorperazine Maleate 10 mg PO Q8HR PRN #90 tablet 05/17/17 [Compazine] valACYclovir [Valtrex] 500 mg PO DAILY #30 tablet 06/14/17 Albuterol Sulfate [Albuterol 1 puff IH Q4H PRN #1 inhaler 08/16/17 Inhaler] Rivaroxaban [Xarelto] 10 mg PO 1700 #30 tablet 08/16/17 Tramadol HCl [Ultram] 50 mg PO BID PRN #10 tab 09/01/17 Metoprolol [Lopressor] 25 mg PO BID #60 tablet 09/27/17 Allergies Allergy/AdvReac Type Severity Reaction Status Date / Time No Known Allergies Allergy Verified 11/08/17 18:09 Constitutional: Denies: fever, chills, weakness, weight change Eyes: Denies: eye pain, eye discharge, vision change ENT ED: Denies: ear pain, throat pain, dental pain, hearing loss, epistaxis, congestion, dysphagia Cardiovascular: Denies: chest pain, palpitations, dyspnea on exertion, edema, syncope Respiratory: Reports: cough, dyspnea. Denies: wheezes, hemoptysis, stridor Gastrointestinal: Denies: abdominal pain, nausea, vomiting, diarrhea, constipation, hematemesis, melena, hematochezia Genitourinary: Denies: dysuria, frequency, hematuria, discharge Musculoskeletal: Denies: back pain, neck pain, arthralgia, myalgia Integumentary: Denies: rash, abrasion, lesions Neurological: Denies: headache, weakness, numbness, paresthesias, confusion, abnormal gait, vertigo Psychiatric: Denies: anxiety, depression, suicidal thoughts, homicidal thoughts , auditory hallucinations, visual hallucinations Endocrine: Denies: fatigue Hematological/Lymphatic: Denies: easy bleeding, easy bruising Allergic/Immunologic: Denies: facial swelling, urticaria Past Medical History - Past Medical History Medical history: Reports: cancer, hyperlipidemia, hypertension, other Surgical history: Reports: breast surgery, hysterectomy Psychiatric history: Reports: depression DIVEMASTER history: Reports: no DIVEMASTER history - Social History Smoking Status: Former smoker Smokeless Tobacco Status: No Alcohol use: Reports: none Drug use: Reports: none Physical Exam - General Limitations: no limitations General appearance: alert - Head Head exam: atraumatic, normocephalic, normal inspection - Eye Eye exam: Present: normal appearance, PERRL, EOMI - ENT ENT exam: normal exam, normal oropharynx, mucous membranes moist - Neck Neck exam: Present: normal inspection, full ROM, trachea midline - Chest Chest inspection: Present: normal inspection, symmetric chest wall rise - Respiratory Respiratory exam: Present: other (Diminished breath sounds bilaterally) - Cardiovascular Cardiovascular exam: Present: normal rhythm, tachycardia, normal heart sounds - Abdominal Exam Abdominal exam: Present: soft, Non-Tender. Absent: tenderness, distention, guarding, rebound, rigidity - Extremities Exam Extremities exam: Present: normal inspection, full ROM. Absent: tenderness, pedal edema - Expanded Lower Extremity Exam Neurovascular/Tendon exam: Absent: motor deficit, sensory deficit, tendon deficit Gait: observed and normal - Back Exam Back exam: Present: normal inspection, full ROM. Absent: tenderness - Neurological Exam Neurological exam: Present: alert, oriented X3 - Psychiatric Psychiatric exam: Present: normal affect, normal mood - Skin Skin exam: Present: warm, dry, intact, normal color Course - Reevaluation(s) Reevaluation #1: 76-year-old with a history of lung cancer who saw their oncologist today and had a CTA of the chest no PE but did show a large left pleural effusion and a right-sided pneumonia. Patient will be admitted for further evaluation and treatment. Time: 19:53 - Consultations Consultation #1: Discussed with , admit. Time: 19:53 Vital Signs Temperature 97.4 F L 11/08/17 18:10 Pulse Rate 111 11/08/17 18:10 Respiratory Rate 20 11/08/17 18:10 Blood Pressure 137/82 11/08/17 18:10 O2 Sat by Pulse Oximetry 88 11/08/17 18:10 Temperature 97.4 F L 11/08/17 18:10 Pulse Rate 111 11/08/17 18:10 Respiratory Rate 16 11/08/17 18:33 Blood Pressure 137/82 11/08/17 18:10 O2 Sat by Pulse Oximetry 100 11/08/17 18:33 Oxygen Delivery Oxygen Delivery Room Air Shortness of Breath/Dyspnea - Lab Data Lab results reviewed: Yes I reviewed the patient's lab results. Result diagrams: 11/08/17 18:55 11/08/17 18:55 Lab Results 11/08/17 11/08/17 11/08/17 Range/Units 18:55 18:55 18:55 WBC 7.3 (4.3-11.1) K/mcL RBC 3.61 L (3.82-4.97) M/mcL Hgb 11.2 L (11.5-15.4) g/dL Hct 34.1 L (35.3-44.9) % MCV 94.5 (83.0-100.0) fL MCH 31.0 (28.0-33.3) pg MCHC 32.8 (31.6-35.5) g/dL RDW 13.2 (11.5-14.5) % Plt Count 265 (140-400) K/mcL MPV 9.2 L (9.4-12.4) fL Immature Gran % 0.3 (0-4) % Seg Neutrophils % 71.0 % Lymphocytes % 12.0 % Monocytes % 12.4 % Eosinophils % 4.2 % Basophils % 0.1 % Neutrophils # 5.2 (1.6-8.9) K/mcL Lymphocytes # 0.9 (0.6-4.6) K/mcL Monocytes # 0.9 (0.0-1.3) K/mcL Eosinophils # 0.3 (0.0-0.6) K/mcL Basophils # 0.0 (0.0-0.2) K/mcL Nucleated RBCs/100 WBC 0.3 H (0) /100 WBC Sodium 131 L (136-145) mEq/L Potassium 4.3 (3.5-4.5) mEq/L Chloride 94 L (98-109) mEq/L Carbon Dioxide 27 (19-29) mEq/L BUN 20 (7-20) mg/dL Creatinine 1.14 H (0.57-1.11) mg/dL Est GFR ( Amer) 56 L (> 60) Est GFR (Non-Af Amer) 46 L (> 60) BUN/Creatinine Ratio 18 (6-26) Glucose 119 H (70-99) mg/dL Calculated Osmolality 276 L (280-300) Calcium 9.7 (8.6-10.8) mg/dL Troponin I 0.00 (0-0.03) ng/mL B-Natriuretic Peptide (0-100) pg/mL 11/08/17 Range/Units 18:55 WBC (4.3-11.1) K/mcL RBC (3.82-4.97) M/mcL Hgb (11.5-15.4) g/dL Hct (35.3-44.9) % MCV (83.0-100.0) fL MCH (28.0-33.3) pg MCHC (31.6-35.5) g/dL RDW (11.5-14.5) % Plt Count (140-400) K/mcL MPV (9.4-12.4) fL Immature Gran % (0-4) % Seg Neutrophils % % Lymphocytes % % Monocytes % % Eosinophils % % Basophils % % Neutrophils # (1.6-8.9) K/mcL Lymphocytes # (0.6-4.6) K/mcL Monocytes # (0.0-1.3) K/mcL Eosinophils # (0.0-0.6) K/mcL Basophils # (0.0-0.2) K/mcL Nucleated RBCs/100 WBC (0) /100 WBC Sodium (136-145) mEq/L Potassium (3.5-4.5) mEq/L Chloride (98-109) mEq/L Carbon Dioxide (19-29) mEq/L BUN (7-20) mg/dL Creatinine (0.57-1.11) mg/dL Est GFR ( Amer) (> 60) Est GFR (Non-Af Amer) (> 60) BUN/Creatinine Ratio (6-26) Glucose (70-99) mg/dL Calculated Osmolality (280-300) Calcium (8.6-10.8) mg/dL Troponin I (0-0.03) ng/mL B-Natriuretic Peptide 21 (0-100) pg/mL - Radiology Data Radiology results reviewed: Yes I reviewed the patient's radiology results. CT/CT angio chest IMPRESSION:11/08/2017 1. No evidence of pulmonary embolism. 2. Large left and small right pleural effusion. 3. 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 Findings appear stable to worse since comparison examination. 4. Superimposed consolidation right lower lobe and to a lesser degree right upper and right middle lobes--suggestive of superimposed pneumonia. 5. Age-indeterminate compression fracture involving the inferior endplate of T12. Less than 20% height loss. - EKG Data EKG attestation: Yes I reviewed and interpreted this EKG. EKG shows normal: Reports: sinus rhythm Rate: Reports: normal, tachycardia Rhythm: Reports: NSR Interpretation: Reports: no acute changes
[2017-11-08 19:12] LABS: Basophils % 0.1 %; Eosinophils # 0.3 K/mcL (0.0-0.6); Eosinophils % 4.2 %; Hematocrit 34.1 % (35.3-44.9); Hemoglobin 11.2 g/dL (11.5-15.4); Immature Granulocytes % 0.3 % (0-4); Lymphocytes # 0.9 K/mcL (0.6-4.6); Mean Corpuscular HGB Conc 32.8 g/dL (31.6-35.5); Mean Corpuscular Volume 94.5 fL (83.0-100.0); Mean Platelet Volume 9.2 fL (9.4-12.4); Monocytes # 0.9 K/mcL (0.0-1.3); Monocytes % 12.4 %; Neutrophils # 5.2 K/mcL (1.6-8.9); Nucleated Red Blood Cells 0.3 /100 WBC (0); Platelet Count 265 K/mcL (140-400); Red Blood Count 3.61 M/mcL (3.82-4.97); Red Cell Distribution Width 13.2 % (11.5-14.5)
[2017-11-08 19:25] LABS: Calcium 9.7 mg/dL (8.6-10.8); Potassium 4.3 mEq/L (3.5-4.5)
[2017-11-08] MEDS: 0.9 % Sodium Chloride 1,000 ML IVC SCH ×3 (19:53→22:28)
[2017-11-08] MEDS ORDERED: Piperacillin/Tazobactam 3.375 GM in Water for inj. (sterile) 20 ML IVP ONE (20:58)
[2017-11-08] MEDS ORDERED: Ondansetron 4 MG/2 ML VIAL IVP PRN (21:41)
[2017-11-08] MEDS ORDERED: *HR* Morphine 2 MG/ML SYRINGE IVP PRN (21:41)
[2017-11-08] MEDS ORDERED: Acetaminophen 325 MG TABLET PO PRN (21:41)
[2017-11-08] MEDS ORDERED: Naloxone 0.4 MG/ML INJ IVP PRN (21:41)
[2017-11-08] MEDS ORDERED: *HR* HYDROcodone/Acet 5/325 mg TABLET PO PRN (21:41)
[2017-11-08] MEDS ORDERED: *HR* Promethazine 25 MG/ML VIAL IVP PRN (21:41)
[2017-11-08] MEDS ORDERED: traMADol 50 MG TABLET PO PRN (21:45)
[2017-11-08] MEDS ORDERED: Vancomycin 1,000 MG in D5% in Water 250 ML IVPB SCH (22:00)
[2017-11-08] MEDS: *HR* Rivaroxaban 10 MG TABLET PO SCH (23:44)
[2017-11-09] MEDS ORDERED: Vancomycin 1,500 MG in D5% in Water 250 ML IVPB ONE (00:05)
[2017-11-09] MEDS: Ipratropium/Albuterol Neb 3 ML IH SCH ×3 (00:12→08:00)
--- NOTE | 2017-11-09 00:23 | Internal Med History&Physical ---
Date of Encounter: 11/08/17 Time of Encounter: 21:30 Assessment and Plan (1) SIRS (systemic inflammatory response syndrome) Current visit: Yes Status: Acute Pt does meet SIRS criteria with Tachycardia and source of inf as PNA will admit the pt into Med Surg Started her on empirical abx (2) Pneumonia Current visit: Yes Status: Acute Reviewed CT of Chets reuslts Reviewed CXR by my self.. showing pleural effusion Left > Rt, patchy infiltrates RML,and RLL Mostly bacterial Also concerned for super imposed fungal infection given her current immuno suppressive state So started her on broad spec abx Zosyn, Vancomycin also added Micafungin will consult Pulmonary in AM Cont Duoneb and O2 Qualifiers: Pneumonia type: due to unspecified organism Laterality: right Lung location: unspecified part of lung Qualified Code(s): J18.9 - Pneumonia, unspecified organism (3) Metastatic primary lung cancer Current visit: No Status: Chronic Seems to be pt was on palliative chemo due to her advanced stage IV metaststic lung ca will consult Heme Onc in AM cont supportive and symptomatic care Qualifiers: Laterality: right Qualified Code(s): C34.91 - Malignant neoplasm of unspecified part of right bronchus or lung (4) HTN (hypertension) Current visit: No Status: Chronic resumed home meds Qualifiers: Hypertension type: essential hypertension Qualified Code(s): I10 - Essential (primary) hypertension (5) GABRIELA (acute kidney injury) Current visit: No Status: Acute noticed mild GABRIELA started on gentle IV hydration (6) Pleural effusion, malignant Current visit: No Status: Acute s/p Rt side pleurex cath As per pt and pt's Niece they were able to draw only 25 cc foamy liquids today will ask Guide Visitor to evaluate.. she may Left pleurex cath too due to her Worsening Left pleural effusion (7) DVT (deep venous thrombosis) Current visit: No Status: Acute resumed home med Xarelto Qualifiers: DVT location: lower extremity Affected thrombotic vein of extremity: tibial Chronicity: acute Laterality: left Qualified Code(s): I82.442 - Acute embolism and thrombosis of left tibial vein (8) Bone metastases Current visit: No Status: Acute on PO and IV Narcotic PRN for pain Internal Medicine - H&P: HPI Chief complaint: Shortness of breath Admitted From: Emergency Dept Plans for Post Hospital Care: Home History of present illness: Ms. Odonnell is a 76 year old female with known PMH of HTN, HLD, Pulmonary adenocarcinoma stage IV, mets Liver / brain / bones who is currently on immuno suppressive therapy, also has recurrent Rt pleural effusion for which she had Rt pleural catheter placed in, she went to Heme Onc office today with progressively worsening SOB, Cold and cough. wShe had a CTA of the chest which did not show PE but did show bilateral pleural effusion and new right-sided pneumonia. Pt was sent to ER for further eval and possible admission for IV abx. When I examined, pt is alert, awake and O x 3. She denied any CP. Does c.o moderate SOB and CASTRO. Cough with out any expectoration. Past Med Surg Social Fam HX - Past Medical History Medical history: cancer, hyperlipidemia, hypertension, other Psychiatric history: depression - Past Surgical History Surgical History: breast surgery, hysterectomy - Social History Smoking Status: Former smoker Smokeless Tobacco Status: No Alcohol use: none Drug use: none - Family History Mother Living Status: Hx Family Cardiac Disorders: Yes Hx Family Endocrine Disorder: Yes Internal Medicine - H&P: Meds Calcium Carbonate/Vitamin D3 [Calcium 600 + Vit D Tablet] 1 tab PO BID 08/05/16 [History] Fish Oil/Dha/Epa [Fish Oil 1,200 mg Fish Oil] 1 cap PO DAILY 08/05/16 [History] Multivitamin [Multivitamins] 1 cap PO DAILY 08/05/16 [History] Ramipril [Altace] 10 mg PO BID 08/05/16 [History] amLODIPine [Norvasc] 5 mg PO DAILY 08/05/16 [History] Anastrozole [Arimidex] 1 mg PO DAILY #90 tablet 03/18/17 [Rx] Prochlorperazine Maleate [Compazine] 10 mg PO Q8HR PRN #90 tablet 05/17/17 [Rx] Ondansetron [Zofran] 4 mg PO Q8HR PRN 06/03/17 [History] valACYclovir [Valtrex] 500 mg PO DAILY #30 tablet 06/14/17 [Rx] Albuterol Sulfate [Albuterol Inhaler] 1 puff IH Q4H PRN #1 inhaler 08/16/17 [Rx] Rivaroxaban [Xarelto] 10 mg PO 1700 #30 tablet 08/16/17 [Rx] Tramadol HCl [Ultram] 50 mg PO BID PRN #10 tab 09/01/17 [Rx] Metoprolol [Lopressor] 25 mg PO BID #60 tablet 09/27/17 [Rx] Pantoprazole Sodium [Protonix] 40 mg PO BID 11/08/17 [History] 3 Allergy/AdvReac Type Severity Reaction Status Date / Time No Known Allergies Allergy Verified 11/08/17 18:09 All Systems PM: A 10-system review of systems was performed and is negative for pertinent findings except as documented above in the HPI. Review of systems: All the systems are reviewed everything is benign except the systems and symptoms I mentioned in the history of present illness - Constitutional Vitals: Temp Pulse Resp BP Pulse Ox 97.4 F L 96 17 127/74 91 11/08/17 22:46 11/08/17 22:46 11/08/17 22:46 11/08/17 22:46 11/08/17 22:46 General appearance: Present: A&O X 3, no acute distress, answers questions appropriately - Head Head exam: Present: atraumatic, normal inspection - Neck Neck exam general surgery: Present: supple - Respiratory Respiratory exam: Present: decreased breath sounds, rales (mild), rhonchi (mild) , wheezes (mild). Absent: respiratory distress - Cardiovascular Cardiovascular exam: Present: +S1, +S2, tachycardia. Absent: systolic murmur - GI/Abdominal GI/Abdominal exam: Present: normal bowel sounds, soft. Absent: rebound, rigid, tenderness - Extremities Exam Extremities exam: Absent: calf tenderness, pedal edema, tenderness - Back Exam Back exam: Absent: CVA tenderness (L), CVA tenderness (R) - Neurological Exam Neurological exam: Present: alert, oriented X3 - Psychiatric Psychiatric exam: Present: normal affect, normal mood - Skin Skin exam: Absent: rash Internal Med - H&P Results - Labs CBC & Chem 7: 11/08/17 18:55 11/08/17 18:55
[2017-11-09] MEDS: Piperacillin/Tazobactam 3.375 GM/200 ML BAG IVPB SCH ×3 (05:00→22:10)
[2017-11-09 05:26] LABS: Basophils % 0.1 %; Hematocrit 31.8 % (35.3-44.9); Hemoglobin 10.4 g/dL (11.5-15.4); Immature Granulocytes % 0.5 % (0-4); Lymphocytes # 0.7 K/mcL (0.6-4.6); Lymphocytes % 8.7 %; Mean Corpuscular HGB Conc 32.7 g/dL (31.6-35.5); Mean Corpuscular Volume 94.6 fL (83.0-100.0); Mean Platelet Volume 9.1 fL (9.4-12.4); Monocytes # 0.1 K/mcL (0.0-1.3); Monocytes % 0.7 %; Neutrophils # 6.9 K/mcL (1.6-8.9); Platelet Count 238 K/mcL (140-400); Red Blood Count 3.36 M/mcL (3.82-4.97); Red Cell Distribution Width 13.2 % (11.5-14.5)
[2017-11-09 05:29] LABS: Calcium 8.8 mg/dL (8.6-10.8); Magnesium 1.5 mg/dL (1.6-2.6); Potassium 4.7 mEq/L (3.5-4.5)
[2017-11-09] MEDS: valACYclovir 500 MG TABLET PO SCH (08:52)
[2017-11-09] MEDS: amLODIPine 5 MG TABLET PO SCH (08:53)
[2017-11-09] MEDS: Lisinopril 20 MG TABLET PO SCH (08:53)
[2017-11-09] MEDS: Multivit/Ca/Min/Fe/FA 1 TAB TABLET PO SCH (08:54)
--- NOTE | 2017-11-09 09:07 | Pulmonology Consult Note ---
<LilianpayalKaushik corral M - Last Filed: 11/09/17 11:00> Date of Encounter: 11/09/17 Medications and Allergies Calcium Carbonate/Vitamin D3 [Calcium 600 + Vit D Tablet] 1 tab PO BID 08/05/16 [History] Fish Oil/Dha/Epa [Fish Oil 1,200 mg Fish Oil] 1 cap PO DAILY 08/05/16 [History] Multivitamin [Multivitamins] 1 cap PO DAILY 08/05/16 [History] Ramipril [Altace] 10 mg PO BID 08/05/16 [History] amLODIPine [Norvasc] 5 mg PO DAILY 08/05/16 [History] Anastrozole [Arimidex] 1 mg PO DAILY #90 tablet 03/18/17 [Rx] Prochlorperazine Maleate [Compazine] 10 mg PO Q8HR PRN #90 tablet 05/17/17 [Rx] Ondansetron [Zofran] 4 mg PO Q8HR PRN 06/03/17 [History] valACYclovir [Valtrex] 500 mg PO DAILY #30 tablet 06/14/17 [Rx] Albuterol Sulfate [Albuterol Inhaler] 1 puff IH Q4H PRN #1 inhaler 08/16/17 [Rx] Rivaroxaban [Xarelto] 10 mg PO 1700 #30 tablet 08/16/17 [Rx] Tramadol HCl [Ultram] 50 mg PO BID PRN #10 tab 09/01/17 [Rx] Metoprolol [Lopressor] 25 mg PO BID #60 tablet 09/27/17 [Rx] Pantoprazole Sodium [Protonix] 40 mg PO BID 11/08/17 [History] 3 Allergy/AdvReac Type Severity Reaction Status Date / Time No Known Allergies Allergy Verified 11/08/17 18:09 All Systems: A 10-system review of systems was performed and is negative for pertinent findings except as documented above in the HPI. Physical Examination Vital Signs: Vital Signs, Last 4 Hours Temp Pulse Resp BP Pulse Ox 11/09/17 08:10 98 11/09/17 08:01 16 100 11/09/17 07:04 97.3 F L 102 16 114/68 97 Results - Laboratory Findings CBC and BMP: 11/09/17 05:00 11/09/17 09:28 PT/INR, D-dimer PT 13.3 Seconds (9.4-12.1) H 11/09/17 09:28 Abnormal lab findings: Abnormal lab results RBC 3.36 M/mcL (3.82-4.97) L 11/09/17 05:00 Hgb 10.4 g/dL (11.5-15.4) L 11/09/17 05:00 Hct 31.8 % (35.3-44.9) L 11/09/17 05:00 MPV 9.1 fL (9.4-12.4) L 11/09/17 05:00 Nucleated RBCs/100 WBC 0.3 /100 WBC (0) H 11/08/17 18:55 PT 13.3 Seconds (9.4-12.1) H 11/09/17 09:28 Sodium 135 mEq/L (136-145) L 11/09/17 09:28 BUN 21 mg/dL (7-20) H 11/09/17 09:28 Creatinine 1.37 mg/dL (0.57-1.11) H 11/09/17 09:28 Est GFR ( Amer) 46 (> 60) L 11/09/17 09:28 Est GFR (Non-Af Amer) 38 (> 60) L 11/09/17 09:28 Glucose 311 mg/dL (70-99) H 11/09/17 09:28 Calcium 8.5 mg/dL (8.6-10.8) L 11/09/17 09:28 Magnesium 1.5 mg/dL (1.6-2.6) L 11/09/17 05:00 Alkaline Phosphatase 168 Units/L (38-126) H 11/09/17 09:28 Lactate Dehydrogenase 357 Units/L (159-327) H 11/09/17 09:28 Albumin 2.5 g/dL (3.5-5.0) L 11/09/17 09:28 Globulin 4.0 g/dL (2.4-3.5) H 11/09/17 09:28 Albumin/Globulin Ratio 0.6 (1.1-2.2) L 11/09/17 09:28 - Clinical Findings Intake & Output: Intake & Output 11/08/17 11/09/17 11/09/17 23:59 07:59 15:59 Intake Total 0 / 2020 0 / 0 240 / 240 Output Total 100 / 100 Balance 0 2019 -100 / -100 240 / 240 Weight 75.659 kg 75.659 kg Consult Discharge Plan - Plan Referrals: Julio Cesar Floyd MD [Non-Partnered Physician] - - Attending Attestation I examined this patient and my medical decision-making was reviewed with the Resident Physician. I agree with the documented findings, disposition and treatment plan as described except to the extent set forth below. Patient seen and examined. Labs, radiology, chart personally reviewed. Agree with resident's history and physical, assessment, plan with following comments: DIRECTOR GIFT: Patient follows commands, Pulmonary: Acceptable oxygenation and ventilation. This pleasant patient worsening of shortness of breath is very concerning and I have explained to her that most likely this is worsening of underlying malignancy and evidence of lymphangitic carcinomatosis. Patient is on anticoagulation and discussed with her about having diagnostic and therapeutic thoracentesis in the left side since she is not drinking any much from the right side where she had Pleurx pleural catheter and possibility she might need to have it in the left side as well. Oncology to follow up. Cardiovascular: stable GI: Nutrition per dietary and GI prophylaxis per routine Heme: DVT prophylaxis per routine I thank you very much for allowing us to participate in the care of this extremely nice Patient. <William Sal - Last Filed: 11/09/17 15:05> Date of Encounter: 11/09/17 Time of Encounter: 09:06 Assessment and Plan (1) Pleural effusion Current Visit: No Status: Chronic Likely worsening of underlying malignancy and lymphangitic carcinomatosis. Indwlling right PleurX pleural catheter in place with frothy drainage yesterday per patient. She may need to have one on the left side as well. Anticipate diagnostic and therapeutic thoracentesis on the left side Will send pleural fluid for anaylsis (2) Pneumonia Current Visit: Yes Status: Acute CTA 11/08/17 revealed superimposed consolidation right lower lobe and to a lesser degree right upper and right middle lobes suggestive of superimposed pneumonia and large left and small right pleural effusion. Findings appear stable to worse since comparison examination. 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 Oncology consulted Qualifiers: Laterality: right Qualified Code(s): C34.91 - Malignant neoplasm of unspecified part of right bronchus or lung (5) History of left breast cancer Current Visit: No Status: Resolved (6) GABRIELA (acute kidney injury) Current Visit: No Status: Acute Management per primary team (7) DVT prophylaxis Current Visit: Yes Status: Acute Resume home Xarelto after thoracentesis History of Present Illness Consult date: 11/09/17 Requesting physician: Mima Dixon Reason for consult: pneumonia, pleural effusion, other (B/L PNA and pleural effusion, on right PleurX catheter, metastatic lung cancer) Chief complaint: SOB History of present illness: Ms. 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 She reports frothy drainage from her right sided PleurX catheter yesterday. She is off chemtherapy at this time and takes Keytruda. CTA yesterday revealed superimposed consolidation right lower lobe and to a lesser degree right upper and right middle lobes suggestive of superimposed pneumonia and large left and small right pleural effusion. Findings appear stable to worse since comparison examination. Past Med Surg Social Fam HX - Past Medical History Medical history: cancer, hyperlipidemia, hypertension, other Psychiatric history: depression - Past Surgical History Surgical History: breast surgery, hysterectomy - Social History Smoking Status: Former smoker Smokeless Tobacco Status: No Alcohol use: none Drug use: none - Family History Mother Living Status: Hx Family Cardiac Disorders: Yes Hx Family Endocrine Disorder: Yes All Systems: A 10-system review of systems was performed and is negative for pertinent findings except as documented above in the HPI. - Constitutional Constitutional: weakness, no chills, no fatigue, no fever(s), no lethargy - EENT Nose, mouth and throat: no headache(s), no sore throat - Cardiovascular Cardiovascular: palpitations, no diaphoresis, no syncope - Respiratory Respiratory: cough, dyspnea, dyspnea on exertion, no chest congestion, no excessive phlegm production, no change in phlegm color - Gastrointestinal Gastrointestinal: no diarrhea, no nausea, no vomiting - Musculoskeletal Musculoskeletal: weakness, back pain, no neck pain - Neurological Neurological: weakness, no numbness - Psychiatric Psychiatric: no anxiety, no depression - Endocrine Endocrine: palpitations, no polydipsia, no polyphagia - Hematologic/Lymphatic Hematologic/Lymphatic: no easy bleeding, no easy bruising - Allergic/Immunologic Allergic/Immunologic: no tongue swelling, no wheezing Physical Examination Vital Signs: Vital Signs, Last 4 Hours Temp Pulse Resp BP Pulse Ox 11/09/17 08:01 16 100 11/09/17 07:04 97.3 F L 102 16 114/68 97 General appearance: no acute distress (pleasant) Eyes: nonicteric ENT: oropharynx moist Mallampati (class): 2 Neck: supple, no JVD Effort: normal Inspection: normal (Right sided PleurX catheter in place without signs of infecton) Auscultation: bilateral: diminished breath sounds (L>R) Percussion: bilateral: dull (L>R) Cardiovascular: regular rate and rhythm Gastrointestinal: normoactive bowel sounds, soft, non-distended Integumentary: normal Extremities: no cyanosis, edema Musculoskeletal: no deformities normal mental status, pupils equal and round mood appropriate, affect normal Results - Laboratory Findings CBC and BMP: 11/09/17 05:00 11/09/17 09:28 Abnormal lab findings: Abnormal lab results RBC 3.36 M/mcL (3.82-4.97) L 11/09/17 05:00 Hgb 10.4 g/dL (11.5-15.4) L 11/09/17 05:00 Hct 31.8 % (35.3-44.9) L 11/09/17 05:00 MPV 9.1 fL (9.4-12.4) L 11/09/17 05:00 Nucleated RBCs/100 WBC 0.3 /100 WBC (0) H 11/08/17 18:55 Sodium 135 mEq/L (136-145) L 11/09/17 05:00 Potassium 4.7 mEq/L (3.5-4.5) H 11/09/17 05:00 Creatinine 1.13 mg/dL (0.57-1.11) H 11/09/17 05:00 Est GFR ( Amer) 57 (> 60) L 11/09/17 05:00 Est GFR (Non-Af Amer) 47 (> 60) L 11/09/17 05:00 Glucose 184 mg/dL (70-99) H 11/09/17 05:00 Magnesium 1.5 mg/dL (1.6-2.6) L 11/09/17 05:00 - Diagnostic Findings Chest x-ray: report reviewed, image reviewed CT scan - chest: report reviewed, image reviewed - Clinical Findings Intake & Output: Intake & Output 11/08/17 11/09/17 11/09/17 23:59 07:59 15:59 Intake Total 2019 0 / 0 240 / 240 Output Total 100 / 100 Balance 2019 -100 / -100 240 / 240 Weight 75.659 kg 75.659 kg
--- NOTE | 2017-11-09 09:29 | Internal Med Progress Note ---
Date of Encounter: 11/09/17 Time of Encounter: 09:26 - Assessment and plan (1) Pneumonia Current Visit: Yes Status: Acute Assessment and plan: Patient with history of metastatic lung cancer, on chemotherapy, admitted with worsening shortness of breath and hypoxia. Chest x-ray shows bilateral multifocal pneumonia and pleural effusions. Started on broad-spectrum IV antibiotics due to immunosuppression-vancomycin and Zosyn. Follow-up blood cultures. Pulmonology consulted, plan for possible left-sided diagnostic and therapeutic thoracentesis. Patient does have right-sided Pleurx catheter, no significant drainage. Continue supportive care and supplemental oxygen. She does have home oxygen. Qualifiers: Pneumonia type: due to unspecified organism Laterality: bilateral Lung location: unspecified part of lung Qualified Code(s): J18.9 - Pneumonia, unspecified organism (2) Sepsis Current Visit: Yes Status: Acute Assessment and plan: Presented with tachycardia, tachypnea and hypoxia with possible source of infection-pneumonia. Lactic acid noted to be within normal limits. Received IV hydration. Follow-up cultures and continue IV antibiotics, monitor vital signs closely. Qualifiers: Sepsis type: sepsis due to unspecified organism Qualified Code(s): A41.9 - Sepsis, unspecified organism (3) Metastatic primary lung cancer Current Visit: Yes Status: Chronic Assessment and plan: Completed chemotherapy with Alimta and Carboplatin, now on Keytruda; Oncology has been consulted per Pulmonology recommendations, will f/up recommendations; Qualifiers: Laterality: right Qualified Code(s): C34.91 - Malignant neoplasm of unspecified part of right bronchus or lung (4) HTN (hypertension) Current Visit: Yes Status: Chronic Qualifiers: Hypertension type: essential hypertension Qualified Code(s): I10 - Essential (primary) hypertension (5) GABRIELA (acute kidney injury) Current Visit: Yes Status: Acute Assessment and plan: mildly elevated serum creatinine, likely due to underlying infection and chemotherapy; continue to monitor; (6) Pleural effusion Current Visit: Yes Status: Acute Assessment and plan: Has right-sided PleurX catheter for malignant pleural effusion; now has left- sided effusion as well, likely lymphangitic malignant effusion; Pulmonology on board, plan for left-sided thoracentesis and possible PleurX placement; will f/ up pleural fluid analysis and Oncology recommendations; continue supplemental o2 ; (7) History of left breast cancer Current Visit: Yes Status: Inactive (8) DVT (deep venous thrombosis) Current Visit: Yes Status: Chronic Assessment and plan: continue anticoagulation with Xarelto due to underlying cancer history; Qualifiers: DVT location: lower extremity Affected thrombotic vein of extremity: tibial Chronicity: chronic Laterality: left Qualified Code(s): 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 - Subjective Interval history: Reports shortness of breath and palpitations, worse with exertion, associated with dry cough; no chest pain, hemoptysis, fever/chills; has chronic leg swelling; on chemotherapy for lung cancer; has right PleurX catheter that is not draining quite well; - Constitutional Vitals: Temp Pulse Resp BP Pulse Ox 97.3 F L 102 16 114/68 98 11/09/17 07:04 11/09/17 07:04 11/09/17 08:01 11/09/17 07:04 11/09/17 08:10 General appearance: Present: mild distress, A&O X 3, answers questions appropriately - Respiratory Respiratory exam: Present: decreased breath sounds (at right base), CTAB. Absent: accessory muscle use, rales, rhonchi, wheezes - Cardiovascular Cardiovascular exam: Present: RRR, +S1, +S2, tachycardia. Absent: diastolic murmur, gallop, rubs, systolic murmur - GI/Abdominal GI/Abdominal exam: Present: normal bowel sounds, soft, no peritoneal signs. Absent: distended, tenderness - Extremities Exam Extremities exam: Present: full ROM, pedal edema, warm, radial pulses palpable and symmetrical. Absent: calf tenderness, cyanotic - Neurological Exam Neurological exam: Present: CN II-XII intact, oriented X3, no focal deficits. Absent: pronater drift, facial droop, speech deficit Internal Medicine: Result - Labs CBC & Chem 7: 11/09/17 05:00 11/09/17 09:28 Labs: Short CBC 11/09/17 Range/Units 05:00 WBC 7.6 (4.3-11.1) K/mcL Hgb 10.4 L (11.5-15.4) g/dL Hct 31.8 L (35.3-44.9) % Plt Count 238 (140-400) K/mcL Neutrophils # 6.9 (1.6-8.9) K/mcL BMP 11/09/17 05:00 Sodium 135 L Potassium 4.7 H Chloride 100 Carbon Dioxide 25 BUN 20 Creatinine 1.13 H Glucose 184 H Calcium 8.8 Consult Discharge Plan - Plan Referrals: Julio Cesar Floyd MD [Non-Partnered Physician] -
[2017-11-09 10:11] LABS: INR 1.2; Prothrombin Time 13.3 Seconds (9.4-12.1)
[2017-11-09 10:26] LABS: Albumin 2.5 g/dL (3.5-5.0); Albumin/Globulin Ratio 0.6 (1.1-2.2); Bilirubin,Total 0.2 mg/dL (0.2-1.2); Calcium 8.5 mg/dL (8.6-10.8); Potassium 4.4 mEq/L (3.5-4.5); Total Protein 6.5 g/dL (6.0-8.3)
[2017-11-09] MEDS ORDERED: Dextrose Gel 15 GM PO PRN ×2 (10:54)
[2017-11-09] MEDS ORDERED: *HR* Dextrose 50 % in Water (Syg) 50 ML SYRINGE IVP PRN (10:54)
[2017-11-09] MEDS ORDERED: D5% in Water 1,000 ML IVC PRN (10:54)
[2017-11-09] MEDS: Insulin LISPRO 300 UNITS/3 ML VIAL SQ SCH ×2 (12:29→17:39)
[2017-11-09 12:40] LABS: Hemoglobin A1C 5.4 %
--- NOTE | 2017-11-09 16:00 | Electrocardiograph Report ---
[place] [id number] Test Date: 2017-11-08 Pat Name: Meghan Odonnell Department: 103 Room: 3A25 Gender: F Newcomer Hostess: ESTHER : 1940 Requested By: Vinay Watkins Order Number: [id number] Reading MD: Becky Juárez Measurements Intervals [place] Rate: 96 P: 21 CO: 139 QRS: -38 QRSD: 83 T: 30 QT: 331 QTc: 385 Interpretive Statements SINUS RHYTHM LEFT AXIS DEVIATION Electronically Signed On 11-09-2017 15:59:16 EST by Becky Juárez
[2017-11-09 16:47] LABS: RBC,Pleural Fluid 0.002 M/mcL
--- NOTE | 2017-11-09 16:49 | Procedure Note ---
<William Sal - Last Filed: 11/09/17 16:50> Date of procedure: 11/09/17 Pre-op diagnosis: Left pleural effusion Post-op diagnosis: same Procedure: A time-out was completed verifying correct patient, procedure, site, positioning , and special equipment if applicable. The patients left side was prepped and draped in a sterile manner after the appropriate infiltration level was confirmed by ultrasound. 1% lidocaine was used anesthetize the surrounding skin. A finder needle was then used to locate fluid and clear yellow fluid was obtained. A 10-blade scalpel used to make the incision. The thoracentesis catheter was then threaded without difficulty. The patient had 850 of serosanguinous fluid removed. Attending Dr. Caldera was present for the entire procedure. A post-procedure chest x-ray was ordered and the fluid will be sent for several studies. Estimated Blood Loss: 0cc The patient tolerated the procedure well and there were no complications. Chest X-Ray 11/09/17 16:11 IMPRESSION: No pneumothorax after thoracentesis Surgeon: William Sal Strand And Binder Controller: Kaushik Caldera Estimated blood loss (cc): 0 Pathology: other (Pleural fluid) Condition: stable Disposition: no change <Kaushik Caldera - Last Filed: 11/09/17 17:03> Procedure: I examined this patient and my medical decision-making was reviewed with the Resident Physician. I agree with the documented findings, disposition and treatment plan as described except to the extent set forth below. I have personally supervised resident performing thoracentesis without immediate complications.
[2017-11-09 16:55] LABS: LDH,Pleural Fluid 220 Units/L (No Ref Range)
[2017-11-09 17:45] LABS: Appearance of Pleural Fl Clear (Clear)
[2017-11-09] MEDS: *HR* Rivaroxaban 10 MG TABLET PO SCH (17:46)
[2017-11-09] MEDS ORDERED: Insulin LISPRO 300 UNITS/3 ML VIAL SQ SCH (21:00)
[2017-11-10] MEDS ORDERED: Vancomycin 1,250 MG in D5% in Water 250 ML IVPB SCH (00:05)
[2017-11-10] MEDS: Piperacillin/Tazobactam 3.375 GM/200 ML BAG IVPB SCH (04:12)
[2017-11-10 05:00] LABS: Basophils % 0.1 %; Eosinophils # 0.5 K/mcL (0.0-0.6); Eosinophils % 3.7 %; Hematocrit 29.4 % (35.3-44.9); Hemoglobin 9.6 g/dL (11.5-15.4); Immature Granulocytes % 0.2 % (0-4); Lymphocytes # 1.1 K/mcL (0.6-4.6); Lymphocytes % 8.7 %; Mean Corpuscular HGB Conc 32.7 g/dL (31.6-35.5); Mean Corpuscular Hemoglobin 31.4 pg (28.0-33.3); Mean Corpuscular Volume 96.1 fL (83.0-100.0); Mean Platelet Volume 9.4 fL (9.4-12.4); Monocytes # 1.3 K/mcL (0.0-1.3); Neutrophils # 9.7 K/mcL (1.6-8.9); Platelet Count 269 K/mcL (140-400); Red Blood Count 3.06 M/mcL (3.82-4.97); Red Cell Distribution Width 13.3 % (11.5-14.5); Segmented Neutrophils % 77.3 %
[2017-11-10 05:13] LABS: BUN/Creatinine Ratio 16 (6-26); Blood Urea Nitrogen 15 mg/dL (7-20); Calcium 8.9 mg/dL (8.6-10.8); Carbon Dioxide 28 mEq/L (19-29); Chloride 101 mEq/L (98-109); Glucose 87 mg/dL (70-99); Magnesium 1.9 mg/dL (1.6-2.6); Osmolality,Calculated 284 (280-300); Potassium 4.3 mEq/L (3.5-4.5); Sodium 137 mEq/L (136-145); eGFR For African Americans > 60 (> 60); eGFR For Non-African Americans 57 (> 60)
--- NOTE | 2017-11-10 07:45 | Pulmonology Progress Note ---
<William Sal - Last Filed: 11/10/17 09:08> Date of Encounter: 11/10/17 Time of Encounter: 07:45 Assessment and Plan (1) Pleural effusion Current Visit: Yes Status: Acute Likely worsening of underlying malignancy and lymphangitic carcinomatosis. Indwlling right PleurX pleural catheter in place with frothy drainage yesterday per patient. She may need to have one on the left side as well. S/p diagnostic and therapeutic thoracentesis on the left side on 11/09/17 Pleural fluid sent for analysis, cytology pending (2) Pneumonia Current Visit: Yes Status: Acute CTA 11/08/17 revealed superimposed consolidation right lower lobe and to a lesser degree right upper and right middle lobes suggestive of superimposed pneumonia and large left and small right pleural effusion. Findings appear stable to worse since comparison examination. 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 Patient reports she feels much improved following left thoracentesis and is ready to go home. Pleural fluid cytology pending. Objective PUL Vital signs: Last Vital Signs Temp 98.4 F 11/10/17 07:11 Pulse 77 11/10/17 07:11 Resp 16 11/10/17 07:11 BP 108/68 11/10/17 07:11 Pulse Ox 96 11/10/17 07:11 General appearance: no acute distress Eyes: nonicteric ENT: oropharynx moist Neck: supple, no JVD Effort: normal Auscultation: bilateral: diminished breath sounds (R>L) Percussion: bilateral: not dull Tactile fremitus: bilateral: normal Cardiovascular: regular rate and rhythm Gastrointestinal: normoactive bowel sounds, non-distended Integumentary: normal Extremities: no cyanosis, no edema, no clubbing Musculoskeletal: no deformities, ROM normal normal mental status, non-focal exam mood appropriate, affect normal Results - Laboratory Findings CBC and BMP: 11/10/17 03:56 11/10/17 03:56 PT/INR, D-dimer PT 13.3 Seconds (9.4-12.1) H 11/09/17 09:28 Abnormal lab findings: Abnormal lab results WBC 12.5 K/mcL (4.3-11.1) H D 11/10/17 03:56 RBC 3.06 M/mcL (3.82-4.97) L 11/10/17 03:56 Hgb 9.6 g/dL (11.5-15.4) L 11/10/17 03:56 Hct 29.4 % (35.3-44.9) L 11/10/17 03:56 Neutrophils # 9.7 K/mcL (1.6-8.9) H 11/10/17 03:56 Nucleated RBCs/100 WBC 0.3 /100 WBC (0) H 11/08/17 18:55 PT 13.3 Seconds (9.4-12.1) H 11/09/17 09:28 Est GFR (Non-Af Amer) 57 (> 60) L 11/10/17 03:56 POC Glucose 94 (58-89) H 11/10/17 07:15 Alkaline Phosphatase 168 Units/L (38-126) H 11/09/17 09:28 Lactate Dehydrogenase 357 Units/L (159-327) H 11/09/17 09:28 Albumin 2.5 g/dL (3.5-5.0) L 11/09/17 09:28 Globulin 4.0 g/dL (2.4-3.5) H 11/09/17 09:28 Albumin/Globulin Ratio 0.6 (1.1-2.2) L 11/09/17 09:28 Pleural Tot Nuc Cell 1722 TNC/mcL (0-1000) H 11/09/17 15:50 - Microbiology Findings Microbiology Findings: Microbiology, Last 48 Hours 11/09/17 15:50 Body Fluid Culture - Preliminary Pleural Fluid - Diagnostic Findings Chest x-ray: report reviewed, image reviewed - Clinical Findings Intake & Output: Intake & Output 11/09/17 11/09/17 11/10/17 15:59 23:59 07:59 Intake Total 560 / 560 260 / 260 450 / 450 Output Total 0 / 0 850 / 850 Balance 560 / 560 260 / 260 -400 / -400 Weight 75 kg Consult Discharge Plan - Plan Additional Instructions: F/up with PCP on 1-2 weeks F/up with Pulmonology and Oncology as scheduled Referrals: Julio Cesar Floyd MD [Non-Partnered Physician] - Prescriptions: levoFLOXacin [Levaquin] 500 mg PO DAILY #5 tablet <Kaushik Caldera M - Last Filed: 11/10/17 13:57> Date of Encounter: 11/10/17 Objective PUL Vital signs: Last Vital Signs Temp 97.9 F 11/10/17 10:40 Pulse 73 11/10/17 10:40 Resp 16 11/10/17 10:40 BP 131/75 11/10/17 10:40 Pulse Ox 98 11/10/17 10:40 Results - Laboratory Findings CBC and BMP: 11/10/17 03:56 11/10/17 03:56 PT/INR, D-dimer PT 13.3 Seconds (9.4-12.1) H 11/09/17 09:28 Abnormal lab findings: Abnormal lab results WBC 12.5 K/mcL (4.3-11.1) H D 11/10/17 03:56 RBC 3.06 M/mcL (3.82-4.97) L 11/10/17 03:56 Hgb 9.6 g/dL (11.5-15.4) L 11/10/17 03:56 Hct 29.4 % (35.3-44.9) L 11/10/17 03:56 Neutrophils # 9.7 K/mcL (1.6-8.9) H 11/10/17 03:56 Nucleated RBCs/100 WBC 0.3 /100 WBC (0) H 11/08/17 18:55 PT 13.3 Seconds (9.4-12.1) H 11/09/17 09:28 Est GFR (Non-Af Amer) 57 (> 60) L 11/10/17 03:56 POC Glucose 99 (58-89) H 11/10/17 10:52 Alkaline Phosphatase 168 Units/L (38-126) H 11/09/17 09:28 Lactate Dehydrogenase 357 Units/L (159-327) H 11/09/17 09:28 Albumin 2.5 g/dL (3.5-5.0) L 11/09/17 09:28 Globulin 4.0 g/dL (2.4-3.5) H 11/09/17 09:28 Albumin/Globulin Ratio 0.6 (1.1-2.2) L 11/09/17 09:28 Pleural Tot Nuc Cell 1722 TNC/mcL (0-1000) H 11/09/17 15:50 - Microbiology Findings Microbiology Findings: Microbiology, Last 48 Hours 11/09/17 15:50 Body Fluid Culture - Preliminary Pleural Fluid - Clinical Findings Intake & Output: Intake & Output 11/09/17 11/10/17 11/10/17 23:59 07:59 15:59 Intake Total 260 / 260 450 / 450 340 / 340 Output Total 0 / 0 850 / 850 Balance 260 / 260 -400 / -400 340 / 340 Weight 75 kg - Attending Attestation I examined this patient and my medical decision-making was reviewed with the Resident Physician. I agree with the documented findings, disposition and treatment plan as described except to the extent set forth below. Patient seen and examined. Labs, radiology, chart personally reviewed. 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 Patient with exudative pleural effusion and suspect this could be malignant in nature. Explained to patient since she is feeling better after thoracentesis then would consider placement of Pleurx catheter and will discuss that as outpatient. Patient already has an appointment next month and there is a possibility we will remove right side Pleurx catheter since is not draining significantly. Discussed with primary team.
[2017-11-10] MEDS: Insulin LISPRO 300 UNITS/3 ML VIAL SQ SCH ×2 (08:34→11:59)
[2017-11-10] MEDS: valACYclovir 500 MG TABLET PO SCH (09:08)
[2017-11-10] MEDS: Lisinopril 20 MG TABLET PO SCH (09:08)
[2017-11-10] MEDS: Multivit/Ca/Min/Fe/FA 1 TAB TABLET PO SCH (09:08)
[2017-11-10] MEDS: amLODIPine 5 MG TABLET PO SCH (09:08)
--- NOTE | 2017-11-10 10:15 | Oncology Inp Progress Note ---
Date of Encounter: 11/09/17 Time of Encounter: 18:00 (1) Metastatic primary lung cancer Current Visit: Yes Status: Chronic Assessment and plan: On pembrolizumab q 3wks, admitted with large effusion SOB, hypozemia possible pneumonia/progression. Has pleurex rt side with min drainage, s/p thoracentesis~800cc left and empric abx, clinically feeling improved Continue abx, consider pleurex at later date-left side Seen and discussed care with patient bedside. Qualifiers: Laterality: right Qualified Code(s): C34.91 - Malignant neoplasm of unspecified part of right bronchus or lung Oncology: Subj Interval history: Patient seen bedside on 11/09/17. s/p thoracentesis. [place] somewhat lightheaded a while befor. SOB better, needs O2 - Constitutional Vitals: Vital Signs Temp Pulse Resp BP Pulse Ox 11/10/17 07:11 98.4 F 77 16 108/68 96 11/10/17 04:33 97.7 F 82 18 108/68 95 11/09/17 22:38 98.2 F 83 14 109/67 97 11/09/17 22:26 96 11/09/17 20:57 97.9 F 92 16 124/74 96 11/09/17 16:22 97.8 F 89 16 113/70 100 11/09/17 14:03 91 11/09/17 11:02 97.3 F L 93 16 114/68 97 Intake and Output 11/09/17 11/10/17 11/10/17 23:59 07:59 15:59 Intake Total 260 / 260 450 / 450 240 / 240 Output Total 0 / 0 850 / 850 Balance 260 / 260 -400 / -400 240 / 240 Intake: IV Fluids 200 / 200 450 / 450 Zosyn Premix 3.375 GM/200 ML 3. 200 / 200 200 / 200 375 gm In 200 ml @ 50 mls/hr IVPB Q8H HAKAN Rx#:[id number] Vancocin 1,250 MG In Dextrose 5 250 / 250 % 250 ML @ 166.67 mls/hr IVPB Q24H HAKAN Rx#:[id number] Oral 60 / 60 240 / 240 Output: Urine 0 / 0 850 / 850 Wound Drainage 0 / 0 0 / 0 Right Lower Back 0 / 0 0 / 0 Other: Meal Dinner Breakfast Percent of Meal Consumed 5% 50% Weight 75 kg Blood Glucose* 124 94 Patient Weight 11/10/17 23:59 Weight 75 kg General appearance: average body habitus - Head Head exam: Present: atraumatic, normal inspection - Eye Eye exam: Present: sclera anicteric - ENT ENT exam: Present: mucous membranes moist - Respiratory Respiratory exam: Present: CTAB - Cardiovascular Cardiovascular exam: Present: +S1, +S2 - Extremities Exam Extremities exam: Present: pedal edema Additional comments: trace edema - Neurological Exam Neurological exam: Present: alert, oriented X3 - Psychiatric Psychiatric exam: Present: normal affect Oncology: Obj Data - Labs CBC & Chem 7: 11/10/17 03:56 11/10/17 03:56 Labs: Laboratory Results - last 24 hr 11/09/17 11/09/17 11/09/17 09:28 09:28 12:19 WBC RBC Hgb Hct MCV MCH MCHC RDW Plt Count MPV Immature Gran % Seg Neutrophils % Lymphocytes % Monocytes % Eosinophils % Basophils % Neutrophils # Lymphocytes # Monocytes # Eosinophils # Basophils # Sodium 135 L Potassium 4.4 Chloride 99 Carbon Dioxide 20 BUN 21 H Creatinine 1.37 H Est GFR ( Amer) 46 L Est GFR (Non-Af Amer) 38 L BUN/Creatinine Ratio 15 Glucose 311 H POC Glucose 149 H Est Mean Plasma Glucose 108 Hemoglobin A1c 5.4 Calculated Osmolality 295 Calcium 8.5 L Magnesium Total Bilirubin 0.2 AST 19 ALT 13 Alkaline Phosphatase 168 H Lactate Dehydrogenase 357 H Serum Total Protein 6.5 Albumin 2.5 L Globulin 4.0 H Albumin/Globulin Ratio 0.6 L Pleural Fluid Volume Pleural Appearance Pleural pH Pleural RBC Pleural Tot Nuc Cell Pleural Neutrophils Pleural Lymphocytes % Pleural LDH Pleural Glucose Pleural Triglycerides 11/09/17 11/09/17 11/09/17 15:50 15:50 16:25 WBC RBC Hgb Hct MCV MCH MCHC RDW Plt Count MPV Immature Gran % Seg Neutrophils % Lymphocytes % Monocytes % Eosinophils % Basophils % Neutrophils # Lymphocytes # Monocytes # Eosinophils # Basophils # Sodium Potassium Chloride Carbon Dioxide BUN Creatinine Est GFR ( Amer) Est GFR (Non-Af Amer) BUN/Creatinine Ratio Glucose POC Glucose 123 H Est Mean Plasma Glucose Hemoglobin A1c Calculated Osmolality Calcium Magnesium Total Bilirubin AST ALT Alkaline Phosphatase Lactate Dehydrogenase Serum Total Protein Albumin Globulin Albumin/Globulin Ratio Pleural Fluid Volume 900.0 Pleural Appearance Clear Pleural pH 8.00 Pleural RBC 0.002 Pleural Tot Nuc Cell 1722 H Pleural Neutrophils 4 Pleural Lymphocytes % 96.0 Pleural LDH 220 Pleural Glucose 193 Pleural Triglycerides 9 11/09/17 11/10/17 11/10/17 20:57 03:56 03:56 WBC 12.5 H D RBC 3.06 L Hgb 9.6 L Hct 29.4 L MCV 96.1 MCH 31.4 MCHC 32.7 RDW 13.3 Plt Count 269 MPV 9.4 Immature Gran % 0.2 Seg Neutrophils % 77.3 Lymphocytes % 8.7 Monocytes % 10.0 Eosinophils % 3.7 Basophils % 0.1 Neutrophils # 9.7 H Lymphocytes # 1.1 Monocytes # 1.3 Eosinophils # 0.5 Basophils # 0.0 Sodium 137 Potassium 4.3 Chloride 101 Carbon Dioxide 28 BUN 15 Creatinine 0.96 Est GFR ( Amer) > 60 Est GFR (Non-Af Amer) 57 L BUN/Creatinine Ratio 16 Glucose 87 POC Glucose 124 H Est Mean Plasma Glucose Hemoglobin A1c Calculated Osmolality 284 Calcium 8.9 Magnesium 1.9 Total Bilirubin AST ALT Alkaline Phosphatase Lactate Dehydrogenase Serum Total Protein Albumin Globulin Albumin/Globulin Ratio Pleural Fluid Volume Pleural Appearance Pleural pH Pleural RBC Pleural Tot Nuc Cell Pleural Neutrophils Pleural Lymphocytes % Pleural LDH Pleural Glucose Pleural Triglycerides 11/10/17 07:15 WBC RBC Hgb Hct MCV MCH MCHC RDW Plt Count MPV Immature Gran % Seg Neutrophils % Lymphocytes % Monocytes % Eosinophils % Basophils % Neutrophils # Lymphocytes # Monocytes # Eosinophils # Basophils # Sodium Potassium Chloride Carbon Dioxide BUN Creatinine Est GFR ( Amer) Est GFR (Non-Af Amer) BUN/Creatinine Ratio Glucose POC Glucose 94 H Est Mean Plasma Glucose Hemoglobin A1c Calculated Osmolality Calcium Magnesium Total Bilirubin AST ALT Alkaline Phosphatase Lactate Dehydrogenase Serum Total Protein Albumin Globulin Albumin/Globulin Ratio Pleural Fluid Volume Pleural Appearance Pleural pH Pleural RBC Pleural Tot Nuc Cell Pleural Neutrophils Pleural Lymphocytes % Pleural LDH Pleural Glucose Pleural Triglycerides - Impressions Impressions Chest X-Ray 11/09/17 16:11 IMPRESSION: No pneumothorax after thoracentesis D/ / Chacho Yin MD / Chacho Yin MD Interpreting Provider: Chacho Yin MD - ABG Interpretation ABG results: PT/INR, D-dimer PT 13.3 Seconds (9.4-12.1) H 11/09/17 09:28 Consult Discharge Plan - Plan Referrals: Julio Cesar Floyd MD [Non-Partnered Physician] -
[2017-11-10 11:24] VITALS: BP 131/75
--- NOTE | 2017-11-10 12:21 | Discharge Summary ---
Date of Encounter: 11/10/17 Time of Encounter: 10:00 - Discharge Diagnosis (1) Pneumonia Priority: Primary Status: Acute Qualifiers: Pneumonia type: due to unspecified organism Laterality: bilateral Lung location: unspecified part of lung Qualified Code(s): J18.9 - Pneumonia, unspecified organism (2) Sepsis Priority: Primary Status: Acute Qualifiers: Sepsis type: sepsis due to unspecified organism Qualified Code(s): A41.9 - Sepsis, unspecified organism (3) Metastatic primary lung cancer Priority: Secondary Status: Chronic Qualifiers: Laterality: right Qualified Code(s): C34.91 - Malignant neoplasm of unspecified part of right bronchus or lung (4) HTN (hypertension) Priority: Secondary Status: Chronic Qualifiers: Hypertension type: essential hypertension Qualified Code(s): I10 - Essential (primary) hypertension (5) GABRIELA (acute kidney injury) Priority: Primary Status: Acute (6) Pleural effusion Priority: Primary Status: Acute (7) History of left breast cancer Priority: Secondary Status: Inactive (8) DVT (deep venous thrombosis) Priority: Secondary Status: Chronic Qualifiers: DVT location: lower extremity Affected thrombotic vein of extremity: tibial Chronicity: chronic Laterality: left Qualified Code(s): 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 - Discharge Medications Prescriptions: levoFLOXacin [Levaquin] 500 mg PO DAILY #5 tablet Home Medications: Calcium Carbonate/Vitamin D3 [Calcium 600 + Vit D Tablet] 1 tab PO BID 08/05/16 [History] Fish Oil/Dha/Epa [Fish Oil 1,200 mg Fish Oil] 1 cap PO DAILY 08/05/16 [History] Multivitamin [Multivitamins] 1 cap PO DAILY 08/05/16 [History] Ramipril [Altace] 10 mg PO BID 08/05/16 [History] amLODIPine [Norvasc] 5 mg PO DAILY 08/05/16 [History] Anastrozole [Arimidex] 1 mg PO DAILY #90 tablet 03/18/17 [Rx] Prochlorperazine Maleate [Compazine] 10 mg PO Q8HR PRN #90 tablet 05/17/17 [Rx] Ondansetron [Zofran] 4 mg PO Q8HR PRN 06/03/17 [History] valACYclovir [Valtrex] 500 mg PO DAILY #30 tablet 06/14/17 [Rx] Albuterol Sulfate [Albuterol Inhaler] 1 puff IH Q4H PRN #1 inhaler 08/16/17 [Rx] Rivaroxaban [Xarelto] 10 mg PO 1700 #30 tablet 08/16/17 [Rx] Tramadol HCl [Ultram] 50 mg PO BID PRN #10 tab 09/01/17 [Rx] Metoprolol [Lopressor] 25 mg PO BID #60 tablet 09/27/17 [Rx] Pantoprazole Sodium [Protonix] 40 mg PO BID 11/08/17 [History] levoFLOXacin [Levaquin] 500 mg PO DAILY #5 tablet 11/10/17 [Rx] Allergies/Adverse Reactions: 3 Allergy/AdvReac Type Severity Reaction Status Date / Time No Known Allergies Allergy Verified 11/08/17 18:09 Date of admission: 11/08/17 21:41 Primary care physician: Evan Shi Consults: 11/09/17 08:05 Consult to Pulmonology [CONS] Routine Consulting Provider: [facility] [place] Reason for Consult: B/L PNA and pleural effusion, on right PleurX catheter, metastatic lung cancer Call Completed: Yes 11/09/17 09:11 Consult to Oncology [CONS] Routine Consulting Provider: [facility] Reason for Consult: Lung cancer patient Time Notified: 09:13 Call Completed: Yes Discharging clinician: Mima Dixon Anticipated date of discharge: 11/10/17 - Patient Status Disposition: Home, Self-Care Condition: Fair Functional capacity at discharge: independent ambulation Overall status at discharge: patient is progressing back to baseline - Discharge Instructions Instructions: Pleural Effusion (DC), Dyspnea (GEN) Follow Up With: Kaushik Caldrea MD [Partnered Physician] - 12/15/17 11:00 am Evan Sánchez MD [Primary Care Provider] - 11/30/17 8:40 am Brittny Guzmán [Advanced Practice Nurse] - 11/23/17 9:00 am Additional Instructions: F/up with PCP on 1-2 weeks F/up with Pulmonology and Oncology as scheduled - Diet and Activity Activity: resume usual activities as tolerated, wear oxygen at all times Diet: low fat, low cholesterol, low salt diet Hospital course: Ms. Odonnell is a 76 year old female with the above medical problems, who was admitted with worsening dyspnea and cough. She was noted to have B/L Pneumonia and pleural effusions. SHe has h/o- lung cancer, on chemotherapy and was started on broad spectrum IV antibiotics for HCAP. SHe does have right-sided PleurX catheter in place. Pulmonology was consulted and patient underwent left-sided thoracentesis; pleural fluid gram stain and culture was negative; s/o- exudative effusion, pathology pending. Oncology was consulted and recommend possible PleurX catheter on the left side at a later date if effusion recurs. Blood cultures remain negative. Patient feels much better since thoracentesis and is stable for discharge on oral antibiotics, d/w Pulmonary. - Time Spent with Patient Total time spent providing and/or coordinating discharge services: Greater than 30 minutes (40 min) - Constitutional Vitals: Temp Pulse Resp BP Pulse Ox 97.9 F 73 16 131/75 98 11/10/17 10:40 11/10/17 10:40 11/10/17 10:40 11/10/17 10:40 11/10/17 10:40 General appearance: Present: A&O X 3, answers questions appropriately - Respiratory Respiratory exam: Present: decreased breath sounds (at right base), CTAB. Absent: accessory muscle use, rales, rhonchi, wheezes - Cardiovascular Cardiovascular exam: Present: RRR, +S1, +S2. Absent: diastolic murmur, gallop, rubs, systolic murmur
[2017-11-10] MEDS ORDERED: Aminoglycoside Consult 1 EACH MC ONE (14:40)
[2017-11-11 08:04] LABS: Mycoplasma pneumoniae IgG 0.46 U/L (<=0.09)
== END 2017-11-10 14:41 | disposition home or self-care (01) | DRG 871 ==
LOC: EMEROO 18:06 → 3ANU 18:06
PROVIDERS: ADMIT Family Medicine; ATTEND Internal Medicine

== ENCOUNTER 2017-12-03 18:38 | Inpatient (IN) ==
[2017-12-03] MEDS ORDERED: Ipratropium/Albuterol Neb 3 ML IH ONE (19:07)
[2017-12-03 19:57] LABS: Basophils % 0.2 %; Eosinophils % 2.6 %; Hematocrit 34.8 % (35.3-44.9); Hemoglobin 11.4 g/dL (11.5-15.4); Immature Granulocytes % 0.5 % (0-4); Lymphocytes # 0.5 K/mcL (0.6-4.6); Lymphocytes % 3.1 %; Mean Corpuscular HGB Conc 32.8 g/dL (31.6-35.5); Mean Corpuscular Hemoglobin 30.2 pg (28.0-33.3); Mean Corpuscular Volume 92.1 fL (83.0-100.0); Mean Platelet Volume 9.8 fL (9.4-12.4); Monocytes # 2.5 K/mcL (0.0-1.3); Monocytes % 14.4 %; Neutrophils # 13.5 K/mcL (1.6-8.9); Platelet Count 178 K/mcL (140-400); Red Blood Count 3.78 M/mcL (3.82-4.97); Red Cell Distribution Width 13.2 % (11.5-14.5); Segmented Neutrophils % 79.2 %
[2017-12-03 20:06] LABS: Eosinophils # 0.4 K/mcL (0.0-0.6)
[2017-12-03 20:12] LABS: BUN/Creatinine Ratio 25 (6-26); Blood Urea Nitrogen 19 mg/dL (8-23); Carbon Dioxide 27 mEq/L (23-29); Chloride 90 mEq/L (98-107); Glucose 130 mg/dL (70-105); Osmolality,Calculated 270 (280-300); Potassium 4.2 mEq/L (3.5-5.1); Sodium 128 mEq/L (136-145); eGFR For African Americans > 60 (> 60); eGFR For Non-African Americans > 60 (> 60)
[2017-12-03] MEDS ORDERED: 0.9 % Sodium Chloride 500 ML IVC ONE (20:29)
--- NOTE | 2017-12-03 20:39 | Emergency Department Note ---
Disposition Clinical Impression: SIRS (systemic inflammatory response syndrome), Pleural effusion, malignant Dyspnea Qualifiers: Dyspnea type: unspecified Qualified Code(s): R06.00 - Dyspnea, unspecified Metastatic primary lung cancer Qualifiers: Laterality: unspecified laterality Qualified Code(s): C34.90 - Malignant neoplasm of unspecified part of unspecified bronchus or lung Disposition: Admitted As Inpatient Condition: Good Time of Disposition: 22:25 SOB HPI - General Chief Complaint: ED Shortness of Breath/Dyspnea Stated Complaint: LANNY Time Seen by Provider: 12/03/17 19:06 Source: patient, family Limitations: no limitations Nursing Notes Reviewed: Yes Vital Signs Reviewed: Yes - History of Present Illness 76-year-old female history of stage IV lung cancer presents with dyspnea. Over the past 24 hours she is been progressively more short of breath with a nonproductive cough. States earlier she was having a hard time bringing in air but it has improved. No fevers at home. Niece and granddaughter at bedside to assist with history. Patient recently had a pleuracath placed by her card maker Dr. Caldera 5 days ago to the left chest wall. She Hugo has one existing on the right chest wall for malignant effusions. She does have a schedule appointment later this upcoming week. She denies any chest pain. Denies any other complaints. She does report a decrease appetite but no loss of weight. Her oncologist is Dr. Sarabia who she just finished IVIG, but previously on chemotherapy. Review of her vital signs she is afebrile but tachycardic. Sepsis workup initiated with lactate and blood cultures. He is currently on 3 liter oxygen supplementation maintaining 94%. At home she is normally on 2 L. Pt Subjective Complaint: shortness of breath, cough - Related Data Home Medications Medication Instructions Recorded Confirmed Calcium Carbonate/Vitamin D3 1 tab PO BID 08/05/16 12/03/17 [Calcium 600 + Vit D Tablet] Ramipril [Altace] 10 mg PO BID 08/05/16 12/03/17 Ondansetron [Zofran] 4 mg PO Q8HR PRN 06/03/17 12/03/17 Previous Rx's Medication Instructions Recorded Anastrozole [Arimidex] 1 mg PO DAILY #90 tablet 03/18/17 Prochlorperazine Maleate 10 mg PO Q8HR PRN #90 tablet 05/17/17 [Compazine] Albuterol Sulfate [Albuterol 1 puff IH Q4H PRN #1 inhaler 08/16/17 Inhaler] Rivaroxaban [Xarelto] 10 mg PO 1700 #30 tablet 08/16/17 Tramadol HCl [Ultram] 50 mg PO BID PRN #10 tab 09/01/17 Metoprolol [Lopressor] 25 mg PO BID #60 tablet 09/27/17 Bed - Hospital [Hospital Bed] 1 each .ROUTE AD #1 each 12/02/17 OxyCODONE Immed Rel [Roxicodone 5 5 mg PO BID PRN #60 tablet 12/02/17 MG] Supplies [SUPPLIES] 1 each .ROUTE AD #1 each 12/02/17 Allergies Allergy/AdvReac Type Severity Reaction Status Date / Time No Known Allergies Allergy Verified 11/08/17 18:09 All systems ED: reviewed and negative except as stated. Review of Systems: As Per HPI Constitutional: Reports: weakness. Denies: fever, chills ENT ED: Reports: congestion Cardiovascular: Reports: dyspnea on exertion. Denies: chest pain Respiratory: Reports: cough, dyspnea Gastrointestinal: Denies: abdominal pain, nausea, vomiting Genitourinary: Denies: urgency, dysuria Musculoskeletal: Denies: back pain Integumentary: Denies: rash, abrasion Neurological: Denies: headache Past Medical History - Past Medical History Attestation: Yes The following information was validated with the patient. Source: patient Medical history: Reports: cancer, hyperlipidemia, hypertension, other Surgical history: Reports: breast surgery, hysterectomy Psychiatric history: Reports: depression [employer] history: Reports: no [employer] history - Social History Smoking Status: Former smoker Smokeless Tobacco Status: No Alcohol use: Reports: none Drug use: Reports: none Physical Exam - General Limitations: no limitations General appearance: alert, in no apparent distress - Head Head exam: atraumatic, normocephalic, normal inspection - Eye Eye exam: Present: normal appearance, PERRL, EOMI. Absent: scleral icterus - ENT ENT exam: normal exam, normal oropharynx, mucous membranes moist - Neck Neck exam: Present: normal inspection, full ROM, trachea midline. Absent: tenderness - Chest Chest inspection: Present: normal inspection, symmetric chest wall rise, other ( posterior trunk with pleuracath in the right mid and left lower). Absent: tenderness - Respiratory Respiratory exam: Present: normal lung sounds bilaterally. Absent: respiratory distress, wheezes - Expanded Respiratory Exam Location: rales: Right, Left - Cardiovascular Cardiovascular exam: Present: normal rhythm, tachycardia, normal heart sounds - Abdominal Exam Abdominal exam: Present: soft, Non-Tender, normal bowel sounds. Absent: tenderness, distention, guarding, rebound, rigidity - Extremities Exam Extremities exam: Present: normal inspection, full ROM, normal capillary refill. Absent: tenderness, pedal edema - Back Exam Back exam: Present: normal inspection, full ROM. Absent: tenderness - Neurological Exam Neurological exam: Present: alert, oriented X3 - Psychiatric Psychiatric exam: Present: normal affect, normal mood - Skin Skin exam: Present: warm, dry, intact, normal color. Absent: rash, cyanosis, diaphoresis Course - Reevaluation(s) Reevaluation #1: Patient appears in no respiratory distress. She maintains adequate oxygen adjuration with supplemental oxygen. No chest pain. Good aeration with some crackles in the bases. Review of her chest x-ray does not reveal re- accumulation of fluid but is stable. She does have a significant leukocytosis. She does not take any steroids at this time. She did recently have I VIG treatment. She is also found to be tachycardic 133 after breathing treatment. She meets 2 of 4 SIRS criteria. Given her symptoms will treat for healthcare associated pneumonia with vancomycin and Zosyn. Her chronic anemia slightly improved but stable. Her lactate is 1.9. It appears she has a history of chronic hyponatremia and has been lower in the past. Will slowly give her some normal saline to correct with the 500 mL bolus. Patient role will require admission and further management. She is in agreement with this plan. - Consultations Consultation #1: Spoke with on-call hospitalist jelena Desai to admit for SIRS, dyspnea, hx of lung cancer, malignant pleural effusion. No further orders at this time Vital Signs Temperature 97.7 F 12/03/17 18:39 Pulse Rate 149 12/03/17 18:39 Respiratory Rate 24 12/03/17 18:39 Blood Pressure 116/64 12/03/17 18:39 O2 Sat by Pulse Oximetry 88 12/03/17 18:39 Temperature 97.7 F 12/03/17 18:39 Pulse Rate 126 12/03/17 22:15 Respiratory Rate 20 12/03/17 20:32 Blood Pressure 117/66 12/03/17 22:15 O2 Sat by Pulse Oximetry 96 12/03/17 22:15 Oxygen Delivery Oxygen Delivery Nasal Cannula Shortness of Breath/Dyspnea - MDM Narrative Medical decision making narrative: Patient was discussed with my attending physician who agrees with ED management and final disposition. They independently evaluated the patient. Please refer to their attestation to this encounter for additional information. This note was generated by [employer] voice recognition software and as a result grammatical or spelling errors may occur using this program. - Medical Records Medical records reviewed: Yes I reviewed the patient's medical records. - Lab Data Lab results reviewed: Yes I reviewed the patient's lab results. Result diagrams: 12/03/17 19:40 12/03/17 19:40 Lab Results 12/03/17 12/03/17 12/03/17 Range/Units 19:40 19:40 19:40 WBC 17.0 H D (4.3-11.1) K/mcL RBC 3.78 L (3.82-4.97) M/mcL Hgb 11.4 L (11.5-15.4) g/dL Hct 34.8 L (35.3-44.9) % MCV 92.1 (83.0-100.0) fL MCH 30.2 (28.0-33.3) pg MCHC 32.8 (31.6-35.5) g/dL RDW 13.2 (11.5-14.5) % Plt Count 178 (140-400) K/mcL MPV 9.8 (9.4-12.4) fL Immature Gran % 0.5 (0-4) % Seg Neutrophils % 79.2 % Lymphocytes % 3.1 % Monocytes % 14.4 % Eosinophils % 2.6 % Basophils % 0.2 % Neutrophils # 13.5 H (1.6-8.9) K/mcL Lymphocytes # 0.5 L (0.6-4.6) K/mcL Monocytes # 2.5 H (0.0-1.3) K/mcL Eosinophils # 0.4 (0.0-0.6) K/mcL Basophils # 0.0 (0.0-0.2) K/mcL Sodium 128 L (136-145) mEq/L Potassium 4.2 (3.5-5.1) mEq/L Chloride 90 L (98-107) mEq/L Carbon Dioxide 27 (23-29) mEq/L BUN 19 (8-23) mg/dL Creatinine 0.76 (0.60-1.20) mg/dL Est GFR ( Amer) > 60 (> 60) Est GFR (Non-Af Amer) > 60 (> 60) BUN/Creatinine Ratio 25 (6-26) Glucose 130 H (70-105) mg/dL Calculated Osmolality 270 L (280-300) Lactic Acid 1.9 (0.5-2.2) mmol/L Calcium 9.0 (8.6-10.3) mg/dL Troponin I (< 0.04) ng/mL B-Natriuretic Peptide (Less than 100) pg/mL 12/03/17 12/03/17 Range/Units 19:40 19:40 WBC (4.3-11.1) K/mcL RBC (3.82-4.97) M/mcL Hgb (11.5-15.4) g/dL Hct (35.3-44.9) % MCV (83.0-100.0) fL MCH (28.0-33.3) pg MCHC (31.6-35.5) g/dL RDW (11.5-14.5) % Plt Count (140-400) K/mcL MPV (9.4-12.4) fL Immature Gran % (0-4) % Seg Neutrophils % % Lymphocytes % % Monocytes % % Eosinophils % % Basophils % % Neutrophils # (1.6-8.9) K/mcL Lymphocytes # (0.6-4.6) K/mcL Monocytes # (0.0-1.3) K/mcL Eosinophils # (0.0-0.6) K/mcL Basophils # (0.0-0.2) K/mcL Sodium (136-145) mEq/L Potassium (3.5-5.1) mEq/L Chloride (98-107) mEq/L Carbon Dioxide (23-29) mEq/L BUN (8-23) mg/dL Creatinine (0.60-1.20) mg/dL Est GFR ( Amer) (> 60) Est GFR (Non-Af Amer) (> 60) BUN/Creatinine Ratio (6-26) Glucose (70-105) mg/dL Calculated Osmolality (280-300) Lactic Acid (0.5-2.2) mmol/L Calcium (8.6-10.3) mg/dL Troponin I < 0.03 (< 0.04) ng/mL B-Natriuretic Peptide 45 (Less than 100) pg/mL - Radiology Data Radiology results reviewed: Yes I reviewed the patient's radiology results. Chest X-Ray 12/03/17 19:07 IMPRESSION: No substantial interval change. D/ / Abram Ward MD / Abram Ward MD Interpreting Provider: Abram Ward MD - EKG Data EKG attestation: Yes I reviewed and interpreted this EKG. EKG results narrative: EKG performed 1850 sinus tachycardia 1 44 bpm, poor R wave progression, no ST elevations or depression, no T wave inversion, intervals are within normal limits. Compared to old EKG performed 11/08/2017 which shows sinus rhythm 96 bpm. Attestation Statement - Attestation Attestation: I, Cam Do MD, personally evaluated this patient and discussed their management with the resident physician. I reviewed the resident's note and agree with the documented findings, medical decision making, and plan of care. 76-year-old female with history of metastatic lung cancer presents to the emergency department with a complaint of increased shortness of breath and increased generalized weakness for 1 day prior to arrival. No fever. No chest pain. Some mild cough. Patient states she is primarily just so weak that she cannot get around. On examination patient is a well-developed thin elderly female in no acute distress. She is alert and oriented 3. There is no cyanosis or diaphoresis. Breath sounds are decreased bilaterally with dry crackles in the base posteriorly on the right. No wheezes. Heart tachycardic and regular. Abdomen soft and nontender with normal bowel sounds. No pedal edema. Chest x-ray shows no interval change. Labs reviewed. EKG shows a sinus tachycardia with a rate of 144. Labs reviewed. The hospitalist, Dr. Tom, was consulted and accepted admission of the patient.
[2017-12-03] MEDS ORDERED: Piperacillin/Tazobactam 3.375 GM in D5% in Water (Mini-Bag+) 100 ML IVPB ONE (21:16)
[2017-12-03] MEDS ORDERED: Vancomycin 1,000 MG in D5% in Water 250 ML IVPB ONE (21:16)
[2017-12-03] MEDS ORDERED: Piperacillin/Tazobactam 3.375 GM in Water for inj. (sterile) 20 ML 20 ML IVP ONE (21:45)
[2017-12-03] MEDS ORDERED: *HR* OxyCODONE Immed Rel 5 MG TABLET PO ONE (22:26)
[2017-12-03] MEDS ORDERED: methylPREDNISolone 125 MG/2 ML VIAL IVP ONE (23:33)
[2017-12-03] MEDS ORDERED: Acetaminophen 325 MG TABLET PO PRN (23:33)
[2017-12-03] MEDS ORDERED: *HR* OxyCODONE Immed Rel 5 MG TABLET PO PRN (23:34)
[2017-12-03] MEDS ORDERED: Naloxone 0.4 MG/ML INJ IVP PRN (23:36)
[2017-12-03] MEDS ORDERED: *HR* Morphine 2 MG/ML SYRINGE IVP PRN (23:36)
[2017-12-03] MEDS ORDERED: Ondansetron 4 MG/2 ML VIAL IVP PRN (23:36)
--- NOTE | 2017-12-03 23:42 | Internal Med History&Physical ---
Date of Encounter: 12/03/17 Time of Encounter: 23:40 Assessment and Plan (1) Healthcare-associated pneumonia Current visit: Yes Status: Acute Acute on chronic hypoxic respiratory failure secondary to sepsis due to healthcare associated pneumonia present upon admission and combination of chronic right pleural effusion/malignant effusion Start Levaquin cefepime, Solu-Medrol, DuoNeb nebs, oxygen therapy Blood cultures Omeprazole for GI prophylaxis and Xarelto for DVT prophylaxis. The patient will be admitted as inpatient, expected stay more than 2 midnights. DNR CC arrest DNI. Time spent on this admission 40 minutes (2) Pleural effusion Current visit: No Status: Acute (3) Sepsis Current visit: No Status: Acute Qualifiers: Sepsis type: sepsis due to unspecified organism Qualified Code(s): A41.9 - Sepsis, unspecified organism (4) Acute respiratory failure with hypoxia Current visit: No Status: Acute (5) History of left breast cancer Current visit: No Status: Inactive (6) Hyponatremia Current visit: No Status: Acute Monitor sodium May order sodium and urine osmolality (7) Pleural effusion, malignant Current visit: Yes Status: Acute (8) Bone metastases Current visit: No Status: Acute (9) Lung cancer Current visit: No Status: Acute Qualifiers: Laterality: unspecified laterality Qualified Code(s): C34.90 - Malignant neoplasm of unspecified part of unspecified bronchus or lung Internal Medicine - H&P: HPI Chief complaint: Shortness of breath Admitted From: Emergency Dept History of present illness: Ms. 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 Crowder. Also, the patient was discharged from this hospital on which she was treated for pneumonia and sepsis. She has been more short of breath over the past 24 hours complaining of a mildly productive cough , white blood cell count is 17 artery disease 130 chest x-ray redemonstrates scattered nodular opacities in bilateral chest tubes with a right pleural effusion and parenchymal disease, also left upper lobe opacity. Glucose is 130 sodium 128. The patient was started on vancomycin and Zosyn at the emergency room. Past Med Surg Social Fam HX - Past Medical History Medical history: cancer (Stage IV adenocarcinoma of the lung with liver and bone metastases status post chemotherapy), hyperlipidemia, hypertension, other ( Chronic respiratory failure using 2 L continuously, depression, DVT currently on Xarelto, treated with IVIG, pneumothorax) Psychiatric history: depression - Past Surgical History Surgical History: breast surgery, hysterectomy, other (Chest tubes and Pleurx catheter, thoracentesis, breast surgery, hysterectomy, oophorectomy, left partial cystectomy) - Social History Smoking Status: Former smoker Smokeless Tobacco Status: No Alcohol use: none Drug use: none - Family History Mother Living Status: Hx Family Cardiac Disorders: Yes Hx Family Endocrine Disorder: Yes - Additional Family History Additional family history: Father with prostate cancer, glaucoma and heart disease, mother with diabetes and heart disease Internal Medicine - H&P: Meds Calcium Carbonate/Vitamin D3 [Calcium 600 + Vit D Tablet] 1 tab PO BID 08/05/16 [History] Ramipril [Altace] 10 mg PO BID 08/05/16 [History] Anastrozole [Arimidex] 1 mg PO DAILY #90 tablet 03/18/17 [Rx] Prochlorperazine Maleate [Compazine] 10 mg PO Q8HR PRN #90 tablet 05/17/17 [Rx] Ondansetron [Zofran] 4 mg PO Q8HR PRN 06/03/17 [History] Albuterol Sulfate [Albuterol Inhaler] 1 puff IH Q4H PRN #1 inhaler 08/16/17 [Rx] Rivaroxaban [Xarelto] 10 mg PO 1700 #30 tablet 08/16/17 [Rx] Tramadol HCl [Ultram] 50 mg PO BID PRN #10 tab 09/01/17 [Rx] Metoprolol [Lopressor] 25 mg PO BID #60 tablet 09/27/17 [Rx] Bed - Hospital [Hospital Bed] 1 each .ROUTE AD #1 each 12/02/17 [Rx] OxyCODONE Immed Rel [Roxicodone 5 MG] 5 mg PO BID PRN #60 tablet 12/02/17 [Rx] Supplies [SUPPLIES] 1 each .ROUTE AD #1 each 12/02/17 [Rx] 3 Allergy/AdvReac Type Severity Reaction Status Date / Time No Known Allergies Allergy Verified 11/08/17 18:09 All Systems PM: A 10-system review of systems was performed and is negative for pertinent findings except as documented above in the HPI. Review of systems: No chest pain, other systems out the 10 review were negative - Constitutional Vitals: Temp Pulse Resp BP Pulse Ox 97.7 F 126 20 117/66 96 12/03/17 18:39 12/03/17 22:15 12/03/17 20:32 12/03/17 22:15 12/03/17 22:15 General appearance: Present: A&O X 3 - Head Head exam: Present: atraumatic, normocephalic - Eye Eye exam: Present: PERRL, conjuntiva pink, sclera anicteric Pupils: Present: PERRL - Neck Neck exam general surgery: Present: supple, trachea midline. Absent: lymphadenopathy - Respiratory Respiratory exam: Present: CTAB. Absent: accessory muscle use, rales, rhonchi, wheezes Additional comments: Right blunted breath sounds, mild diffuse crackles and minimal wheezing, right chest tube in place, left Pleurx catheter - Cardiovascular Cardiovascular exam: Present: RRR, +S1, +S2. Absent: diastolic murmur, gallop, rubs, systolic murmur - GI/Abdominal GI/Abdominal exam: Present: normal bowel sounds, soft, no peritoneal signs. Absent: distended, tenderness - Extremities Exam Extremities exam: Present: warm, radial pulses palpable and symmetrical. Absent : calf tenderness, cyanotic, pedal edema - Neurological Exam Neurological exam: Present: CN II-XII intact, oriented X3, no focal deficits. Absent: pronater drift, facial droop, speech deficit - Skin Skin exam: Present: dry, intact Internal Med - H&P Results - Labs CBC & Chem 7: 12/03/17 19:40 12/03/17 19:40
[2017-12-03] MEDS ORDERED: 0.9 % Sodium Chloride 1,000 ML IVC SCH (23:45)
[2017-12-04] MEDS: MethylPREDNISolone 40 MG/ML VIAL IVP SCH ×3 (01:11→10:16)
[2017-12-04] MEDS: Levofloxacin 750 MG/150 ML 750 MG/150 ML BAG IVPB SCH ×2 (01:12→02:35)
[2017-12-04] MEDS: Ipratropium/Albuterol Neb 3 ML IH SCH ×2 (04:24→09:45)
[2017-12-04 05:11] LABS: Sodium, Urine < 10.0 mEq/L
[2017-12-04 05:29] LABS: Osmolality,Urine 194 mOsm/kg (300-1090)
[2017-12-04] MEDS ORDERED: Cefepime HCl 1,000 MG in Water for inj. (sterile) 20 ML 10 ML IVP SCH (06:00)
[2017-12-04 08:45] LABS: Hemoglobin 11.1 g/dL (11.5-15.4); Immature Platelets 4.3 % (1.1-6.1); Mean Corpuscular HGB Conc 32.6 g/dL (31.6-35.5); Mean Corpuscular Hemoglobin 30.1 pg (28.0-33.3); Mean Corpuscular Volume 92.1 fL (83.0-100.0); Mean Platelet Volume 9.7 fL (9.4-12.4); Red Blood Count 3.69 M/mcL (3.82-4.97); Red Cell Distribution Width 13.1 % (11.5-14.5)
[2017-12-04 08:58] LABS: BUN/Creatinine Ratio 22 (6-26); Blood Urea Nitrogen 18 mg/dL (8-23); Calcium 8.5 mg/dL (8.6-10.3); Carbon Dioxide 29 mEq/L (23-29); Chloride 92 mEq/L (98-107); Glucose 160 mg/dL (70-105); Osmolality,Calculated 275 (280-300); Potassium 4.9 mEq/L (3.5-5.1); Sodium 130 mEq/L (136-145); eGFR For African Americans > 60 (> 60); eGFR For Non-African Americans > 60 (> 60)
[2017-12-04] MEDS ORDERED: Lisinopril 20 MG TABLET PO SCH (09:00)
[2017-12-04 11:27] VITALS: BP 102/65
--- NOTE | 2017-12-04 12:24 | Pulmonology Consult Note ---
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 Patient has received antibiotics and discussed with primary team since recently she completed the course of antibiotics and most likely this is malignancy it is appropriate in my view just to supportive care and patient agrees with that. Qualifiers: Pneumonia type: due to unspecified organism Laterality: bilateral Lung location: unspecified part of lung Qualified Code(s): J18.9 - Pneumonia, unspecified organism (2) Acute respiratory failure with hypoxia Current Visit: No Status: Resolved Patient has oxygen at home and to keep SPO2 around 90% if possible (3) Pleural effusion, malignant Current Visit: Yes Status: Chronic Patient recently had Pleurx catheter in the left side and there is no evidence of significant effusion. Attempted to drain right side, with minimal drainage and plan to remove the catheter as outpatient. Thank you for the consultation. (4) Lung cancer Current Visit: No Status: Chronic Patient has been seen by oncologist Qualifiers: Laterality: unspecified laterality Qualified Code(s): C34.90 - Malignant neoplasm of unspecified part of unspecified bronchus or lung History of Present Illness Consult date: 12/04/17 Requesting physician: Mariano Kurtz Reason for consult: dyspnea Chief complaint: Shortness of breath History of present illness: This is a very pleasant 76-year-old female who is known to me from previous hospitalization and also outpatient treatment. Patient has been having more shortness of breath and she has right-sided Pleurx catheter and last week I did place her left side Pleurx catheter for management of her rest and malignant pleural effusion. Patient is feeling better at this time and she stated her oxygen was down to the 60s at home with tachycardia and she came to the emergency room. She has mild productive cough and denies any significant wheezing and no fever or chills. He was recently treated for pneumonia and sepsis. She denies any hemoptysis. Past Med Surg Social Fam HX - Past Medical History Medical history: cancer, hyperlipidemia, hypertension, other Psychiatric history: depression - Past Surgical History Surgical History: breast surgery, hysterectomy - Social History Smoking Status: Former smoker Smokeless Tobacco Status: No Alcohol use: none Drug use: none - Family History Mother Living Status: Hx Family Cardiac Disorders: Yes Hx Family Endocrine Disorder: Yes Medications and Allergies Calcium Carbonate/Vitamin D3 [Calcium 600 + Vit D Tablet] 1 tab PO BID 08/05/16 [History] Ramipril [Altace] 10 mg PO BID 08/05/16 [History] Anastrozole [Arimidex] 1 mg PO DAILY #90 tablet 03/18/17 [Rx] Prochlorperazine Maleate [Compazine] 10 mg PO Q8HR PRN #90 tablet 05/17/17 [Rx] Ondansetron [Zofran] 4 mg PO Q8HR PRN 06/03/17 [History] Albuterol Sulfate [Albuterol Inhaler] 1 puff IH Q4H PRN #1 inhaler 08/16/17 [Rx] Rivaroxaban [Xarelto] 10 mg PO 1700 #30 tablet 08/16/17 [Rx] Tramadol HCl [Ultram] 50 mg PO BID PRN #10 tab 09/01/17 [Rx] Metoprolol [Lopressor] 25 mg PO BID #60 tablet 09/27/17 [Rx] Bed - Hospital [Hospital Bed] 1 each .ROUTE AD #1 each 12/02/17 [Rx] OxyCODONE Immed Rel [Roxicodone 5 MG] 5 mg PO BID PRN #60 tablet 12/02/17 [Rx] Supplies [SUPPLIES] 1 each .ROUTE AD #1 each 12/02/17 [Rx] 3 Allergy/AdvReac Type Severity Reaction Status Date / Time No Known Allergies Allergy Verified 11/08/17 18:09 All Systems: A 10-system review of systems was performed and is negative for pertinent findings except as documented above in the HPI. Physical Examination Vital Signs: Vital Signs, Last 4 Hours Temp Pulse Resp BP Pulse Ox 12/04/17 11:26 97.5 F L 84 16 102/65 96 12/04/17 09:45 16 100/56 97 12/04/17 08:46 97.4 F L 96 16 100/56 99 General appearance: no acute distress Eyes: nonicteric Neck: supple Effort: normal Inspection: other (Bilateral Pleurx catheter in place.) Auscultation: left: clear, right: diminished breath sounds Percussion: left: not dull, right: dull Cardiovascular: regular rate and rhythm Gastrointestinal: normoactive bowel sounds, non-distended Extremities: no cyanosis normal mental status, non-focal exam mood appropriate Results - Laboratory Findings CBC and BMP: 12/04/17 08:04 12/04/17 08:04 Abnormal lab findings: Abnormal lab results WBC 14.5 K/mcL (4.3-11.1) H 12/04/17 08:04 RBC 3.69 M/mcL (3.82-4.97) L 12/04/17 08:04 Hgb 11.1 g/dL (11.5-15.4) L 12/04/17 08:04 Hct 34.0 % (35.3-44.9) L 12/04/17 08:04 Neutrophils # 13.5 K/mcL (1.6-8.9) H 12/03/17 19:40 Lymphocytes # 0.5 K/mcL (0.6-4.6) L 12/03/17 19:40 Monocytes # 2.5 K/mcL (0.0-1.3) H 12/03/17 19:40 Sodium 130 mEq/L (136-145) L 12/04/17 08:04 Chloride 92 mEq/L (98-107) L 12/04/17 08:04 Glucose 160 mg/dL (70-105) H 12/04/17 08:04 Calculated Osmolality 275 (280-300) L 12/04/17 08:04 Calcium 8.5 mg/dL (8.6-10.3) L 12/04/17 08:04 Urine Osmolality 194 mOsm/kg (300-1090) L 12/04/17 04:53 - Diagnostic Findings Chest x-ray: report reviewed, image reviewed - Clinical Findings Intake & Output: Intake & Output 12/03/17 12/04/17 12/04/17 23:59 07:59 15:59 Intake Total 160 / 160 Output Total 200 / 200 Balance -40 / -40 Consult Discharge Plan - Plan Referrals: NONE,PCP [Primary Care Provider] -
--- NOTE | 2017-12-04 14:29 | Discharge Summary ---
Date of Encounter: 12/04/17 Time of Encounter: 11:00 - Discharge Diagnosis (1) Metastatic primary lung cancer Priority: Primary Status: Chronic Qualifiers: Laterality: unspecified laterality Qualified Code(s): C34.90 - Malignant neoplasm of unspecified part of unspecified bronchus or lung - Discharge Medications Home Medications: Calcium Carbonate/Vitamin D3 [Calcium 600 + Vit D Tablet] 1 tab PO BID 08/05/16 [History] Ramipril [Altace] 10 mg PO BID 08/05/16 [History] Anastrozole [Arimidex] 1 mg PO DAILY #90 tablet 03/18/17 [Rx] Prochlorperazine Maleate [Compazine] 10 mg PO Q8HR PRN #90 tablet 05/17/17 [Rx] Ondansetron [Zofran] 4 mg PO Q8HR PRN 06/03/17 [History] Albuterol Sulfate [Albuterol Inhaler] 1 puff IH Q4H PRN #1 inhaler 08/16/17 [Rx] Rivaroxaban [Xarelto] 10 mg PO 1700 #30 tablet 08/16/17 [Rx] Tramadol HCl [Ultram] 50 mg PO BID PRN #10 tab 09/01/17 [Rx] Metoprolol [Lopressor] 25 mg PO BID #60 tablet 09/27/17 [Rx] Bed - Hospital [Hospital Bed] 1 each .ROUTE AD #1 each 12/02/17 [Rx] OxyCODONE Immed Rel [Roxicodone 5 MG] 5 mg PO BID PRN #60 tablet 12/02/17 [Rx] Supplies [SUPPLIES] 1 each .ROUTE AD #1 each 12/02/17 [Rx] Loratadine [Claritin] 10 mg PO DAILY 12/04/17 [History] Risedronate Sodium [Actonel] 35 mg PO QWEEK 12/04/17 [History] Allergies/Adverse Reactions: 3 Allergy/AdvReac Type Severity Reaction Status Date / Time No Known Allergies Allergy Verified 11/08/17 18:09 Date of admission: 12/03/17 23:36 Primary care physician: PCP NONE - Patient Status Disposition: Home, Self-Care Condition: Good - Discharge Instructions Follow Up With: NONE,PCP [Primary Care Provider] - Hospital course: Patient is a 76-year-old female with past medical history significant for chronic respiratory failure, 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 Crowder. She presents again to the ER on 12/03/17 due to shortness of breath. In the ER, chest x-ray showed no substantial interval change. Patient was admitted to the medical surgical floor for further evaluation and management. During patients hospital stay, pulmonology was consulted and suspects x-ray findings consistent with lymphangitic carcinomatosis with multiple nodules; recommendations for discharge home with supportive care. She will follow-up with her location man/oncologist as an outpatient. - Time Spent with Patient Total time spent providing and/or coordinating discharge services: Less than 30 minutes - Constitutional Vitals: Temp Pulse Resp BP Pulse Ox 97.5 F L 84 16 102/65 96 12/04/17 11:26 12/04/17 11:26 12/04/17 11:26 12/04/17 11:26 12/04/17 11:26 General appearance: Present: A&O X 3 - Cardiovascular Cardiovascular exam: Present: RRR, +S1, +S2. Absent: diastolic murmur, gallop, rubs, systolic murmur
[2017-12-04] MEDS ORDERED: *HR* Rivaroxaban 10 MG TABLET PO SCH (17:00)
--- NOTE | 2017-12-05 10:25 | Electrocardiograph Report ---
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
== END 2017-12-04 17:10 | disposition home or self-care (01) | DRG 180 ==
LOC: EMEROO 18:38 → 2ANU 18:38
PROVIDERS: ADMIT Internal Medicine; ATTEND Internal Medicine